=== PATIENT | male | born 1935 | race Caucasian/White ===

== ENCOUNTER 2019-04-20 04:05 | Outpatient (RCR) | payer MEDICARE, BC, SELFPAY | END 2019-05-04 00:01 | LOC: LAB 04:05 | PROVIDERS: Family Provider Family Medicine; Visit Provider Nurse Practitioner Family | DX: N40.0 Benign prostatic hyperplasia without lower urinary tract symptoms (principal) | CPT/HCPCS: 36415; G0103 ==

== ENCOUNTER 2019-05-25 10:14 | Outpatient (RCR) | payer MEDICARE, BC, SELFPAY ==
[2019-05-25 11:07] LABS: Anion Gap 18.6 (5-19); Blood Urea Nitrogen 12 mg/dL (8-23); Calcium 9.9 mg/Dl (8.8-10.2); Carbon Dioxide 25 mmol/L (22-29); Chloride 98 mmol/L (98-107); Glucose 92 mg/dL (74-106); Potassium 4.6 mmol/L (3.5-5.1); Sodium 137 mmol/L (136-145)
[2019-05-25 11:26] LABS: Basophils % 0.5 %; Eosinophils # 0.6 10^3/uL (0.0-0.8); Eosinophils % 9.9 %; Hematocrit 42.1 % (42.0-52.0); Hemoglobin 13.5 g/dL (11.7-16.6); Lymphocytes # 0.8 10^3/uL (0.8-4.8); Lymphocytes % 13.3 %; Mean Corpuscular HGB Conc 32.1 g/dL (30.0-36.0); Mean Corpuscular Hemoglobin 29.4 pg (28.0-34.0); Mean Corpuscular Volume 91.7 fL (80-94); Monocytes # 0.5 10^3/uL (0.2-0.9); Monocytes % 9.1 %; Neutrophils # 3.9 10^3/uL (1.8-7.7); Neutrophils % 66.4 %; Nucleated Red Blood Cells % 0 %; Platelet Count 232 10^3/cmm (130-400); Red Blood Count 4.59 10^6/uL (4.1-5.3); Red Cell Distribution Width 12.7 % (12.1-15.1); White Blood Count 5.9 10^3/uL (4.0-10.0)
== END 2019-06-04 23:59 | disposition home or self-care (01) ==
LOC: LAB 10:14
PROVIDERS: Family Provider Family Medicine; Visit Provider Dermatology
DX: N30.80 Other cystitis without hematuria (principal); I10 Essential (primary) hypertension
CPT/HCPCS: 80048; 85025

== ENCOUNTER 2020-02-23 07:27 | Inpatient (IN) | payer MEDICARE, BC, SELFPAY ==
[2020-02-23] VITALS (67 sets, daily range): BP systolic 57–158; BP diastolic 43–95; PULSE 72–114; RESP 11–31; TEMP 37.4–38.1; O2SAT 80–100; BMI 37.5
[2020-02-23 07:41] LABS: Glucose Point of Care 104 mg/dL (70-110)
--- NOTE | 2020-02-23 07:41 | ED_ITS ---
HPI - Altered Mental Status General: Chief Complaint: Altered Mental Status Stated Complaint: AMS, POSS STROKE Time Seen by Provider: 02/23/20 07:28 History of Present Illness: HPI narrative: 84-year-old male presents emergency room via EMS from the snf. He seemed to be normal around 2 AM this morning he is poorly responsive he will respond to verbal stimuli and painful stimuli but he does not vocalize any answers I could not get him to really res pond to sharp touch in the extremities or on the face. He does open his eyes equally does not seem to have any lateralizing symptoms. He has a sharp cough sounds very congested. Patient is a Do Not Recussitate. tested for covid 2 days ago was neg per report at DC MD complaint: altered mental status, confusion and decreased responsiveness Onset (ago): hour(s) Timing confirmed by: caregiver Severity: severe Consistency of symptoms: Constant Context: COPD Associated symptoms: Reports no associated symptoms Treatments prior to arrival: IV fluid and oxygen Review of Systems Const: Denies: fever(s), chills, body aches, change in appetite, fatigue or malaise ENMT: Denies: throat pain, ear or mastoid pain, nasal discharge or nasal congestion Card: Denies: chest pain, edema, dyspnea on exertion or orthopnea Resp: Denies: dyspnea, productive cough or non-productive cough GI: Denies: abdominal pain, nausea, vomiting, hematemesis, coffee ground emesis, diarrhea, constipation, bloating, hematochezia or melena : Denies: flank pain, dysuria, urinary frequency or urinary urgency Skin/Breast: Denies: rash or pruritus PFSH ED PFSH: Medical History (Updated 02/28/20 @ 09:26 by Luis Odom DO) BPH (benign prostatic hyperplasia) COPD (chronic obstructive pulmonary disease) CVA (cerebral vascular accident) Dementia History of subarachnoid hemorrhage following trauma HTN (hypertension) Hyperlipidemia Obstructive sleep apnea Social History (Updated 02/23/20 @ 11:56 by Jessica Vaca DO) Housing: Half-Way Physical Exam Const: COMMON NORMALS: no acute distress GENERAL APPEARANCE: cooperative and comfortable HENMT: COMMON NORMALS: normocephalic, atraumatic and hearing grossly normal bilaterally HEAD & SCALP: normocephalic and atraumatic Neck/C-Spine: COMMON NORMALS: no JVD Resp: COMMON NORMALS: normal respiratory effort, No retractions, No use of accessory muscles and clear to auscultation bilaterally AUSCULTATION: clear to auscultation bilaterally Cardio: COMMON NORMALS: no JVD, regular rate, regular rhythm and No murmurs present (Cardio) RATE: regular rate RHYTHM: regular rhythm GI: COMMON NORMALS: Soft to palpation and No hepatosplenomegaly present AUSCULTATION: Yes normoactive bowel sounds PALPATION: Yes Soft to palpation, No Tenderness to palpation present (GI), No Guarding due to palpation present (GI) and Yes No hepatosplenomegaly present Extremity: COMMON NORMALS: normal to inspection, capillary refill normal, no clubbing, cyanosis or edema, no calf tenderness and no pedal edema Skin: COMMON NORMALS: no rashes or lesions noted GENERAL SKIN EXAM: no rashes or lesions noted Course Vital Signs: Vital signs: Vital Signs Temperature 99.6 F 02/28/20 08:00 Pulse Rate 73 02/28/20 08:16 Respiratory Rate 18 02/28/20 08:16 Blood Pressure 120/52 02/28/20 10:11 Pulse Oximetry 94 02/28/20 08:16 MDM - Altered Mental Status MDM Narrative: Medical decision making narrative: Patient did respond to BiPAP. We will continue with the BiPAP for now discussed with Dr. Vaca. CT the head was negative. Started on IV antibiotics for concern for underlying pneumonia. Cussed with Dr. Vaca orders are written Lab Data: Labs: Lab Results 02/23/20 02/23/20 02/23/20 Range/Units 07:34 08:25 08:25 WBC 6.5 (4.0-10.0) 10^3/ uL RBC 4.70 (4.1-5.3) 10^6/u L Hgb 14.1 (11.7-16.6) g/dL Hct 46.6 (42.0-52.0) % MCV 99.1 H (80-94) fL MCH 30.0 (28.0-34.0) pg MCHC 30.3 (30.0-36.0) g/dL RDW 12.4 (12.1-15.1) % Plt Count 219 (130-400) 10^3/c mm MPV 10.5 H (7.4-10.4) fL Neut % (Auto) 76.4 % Lymph % (Auto) 7.4 % [place] % (Auto) 14.1 % Eos % (Auto) 0.5 % Baso % (Auto) 0.2 % Neut # (Auto) 4.98 (1.8-7.7) 10^3/u L Lymph # (Auto) 0.5 L (0.8-4.8) 10^3/u L [place]nee # (Auto) 0.9 (0.2-0.9) 10^3/u L Eos # (Auto) 0.0 (0.0-0.8) 10^3/u L Baso # (Auto) 0.0 (0.0-0.1) 10^3/u L Nucleated RBC % (a uto) 0 % Nucleated RBCs # 0.0 /100WBC Specimen Type Sample Site ABG pH (7.35-7.45) ABG pCO2 (35-45) mmHg ABG pO2 (80.0-100.0) mmH g ABG HCO3 (22-26) mmol/L ABG O2 Saturation ABG Base Excess (-2.0-2.0) mmol/ L Saroj Test A-a O2 Gradient (5-10) mmHg Hematocrit (42-52) % Hgb O2 Saturation (95-100) % Carboxyhemoglobin (0.4-20.1) %THgb Methemoglobin (0.4-1.5) % Total Hemoglobin (14-18) g/dL Ionized Calcium (1.1-1.4) mmol/L O2 Delivery Device O2 Liters/Min % FiO2 % Geographic Area Intelligence Officer ID Sodium (136-145) mmol/L Potassium (3.5-5.1) mmol/L Chloride (98-107) mmol/L Carbon Dioxide (22-29) mmol/L Anion Gap (5-19) BUN (8-23) mg/dL Creatinine (0.7-1.2) mg/dL GFR Calculation Glucose (65-115) mg/dL POC Glucose 104 (70-110) mg/dL Calculated Osmolal ity (285-295) mOsm/k g Lactic Acid 0.8 (0.5-2.2) mmol/L Calcium (8.5-10.5) mg/dL Magnesium (1.7-2.3) mg/dL Total Bilirubin (0.15-1.2) mg/dL AST (0-40) U/L ALT (0-41) U/L Alkaline Phosphata se (40-130) IU/L Creatine Kinase (39-308) U/L Troponin T Baselin e (0-15) ng/L Troponin T 120 Min minto (0-15) ng/L Delta Troponin T (0-10) ABS# Total Protein (6.6-8.7) g/dL Albumin (3.5-5.2) g/dL Globulin (1.3-4.6) g/dL Lipase (13-60) U/L Prostate Specific Ag (0-4) ng/mL TSH (0.27-4.20) uIU/ mL Urine Color (Yellow) Urine Appearance (CLEAR) Urine pH (5-7) Ur Specific Gravit y (1.005-1.030) Urine Protein (Negative) Urine Glucose (UA) (Normal) Urine Ketones (Negative) Urine Blood (Negative) Urine Nitrate (Negative) Urine Bilirubin (Negative) Urine Urobilinogen (Negative) mg/dL Ur Leukocyte Divine ase (Negative) Serum Ketones (Negative) 02/23/20 02/23/20 02/23/20 Range/Units 08:25 08:25 08:25 WBC (4.0-10.0) 10^3/ uL RBC (4.1-5.3) 10^6/u L Hgb (11.7-16.6) g/dL Hct (42.0-52.0) % MCV (80-94) fL MCH (28.0-34.0) pg MCHC (30.0-36.0) g/dL RDW (12.1-15.1) % Plt Count (130-400) 10^3/c mm MPV (7.4-10.4) fL Neut % (Auto) % Lymph % (Auto) % [place] % (Auto) % Eos % (Auto) % Baso % (Auto) % Neut # (Auto) (1.8-7.7) 10^3/u L Lymph # (Auto) (0.8-4.8) 10^3/u L [place] # (Auto) (0.2-0.9) 10^3/u L Eos # (Auto) (0.0-0.8) 10^3/u L Baso # (Auto) (0.0-0.1) 10^3/u L Nucleated RBC % (a uto) % Nucleated RBCs # /100WBC Specimen Type Sample Site ABG pH (7.35-7.45) ABG pCO2 (35-45) mmHg ABG pO2 (80.0-100.0) mmH g ABG HCO3 (22-26) mmol/L ABG O2 Saturation ABG Base Excess (-2.0-2.0) mmol/ L Saroj Test A-a O2 Gradient (5-10) mmHg Hematocrit (42-52) % Hgb O2 Saturation (95-100) % Carboxyhemoglobin (0.4-20.1) %THgb Methemoglobin (0.4-1.5) % Total Hemoglobin (14-18) g/dL Ionized Calcium (1.1-1.4) mmol/L O2 Delivery Device O2 Liters/Min % FiO2 % Geographic Area Intelligence Officer ID Sodium 149 H (136-145) mmol/L Potassium 4.1 (3.5-5.1) mmol/L Chloride 108 H (98-107) mmol/L Carbon Dioxide 29 (22-29) mmol/L Anion Gap 16.1 (5-19) BUN 29 H (8-23) mg/dL Creatinine 1.3 H (0.7-1.2) mg/dL GFR Calculation Not Reportable Glucose 104 (65-115) mg/dL POC Glucose (70-110) mg/dL Calculated Osmolal ity 314 H (285-295) mOsm/k g Lactic Acid (0.5-2.2) mmol/L Calcium 9.1 (8.5-10.5) mg/dL Magnesium 2.0 (1.7-2.3) mg/dL Total Bilirubin 0.3 (0.15-1.2) mg/dL AST 21 (0-40) U/L ALT 30 (0-41) U/L Alkaline Phosphata se 93 (40-130) IU/L Creatine Kinase 53 (39-308) U/L Troponin T Baselin e 70 H (0-15) ng/L Troponin T 120 Min minto (0-15) ng/L Delta Troponin T (0-10) ABS# Total Protein 7.2 (6.6-8.7) g/dL Albumin 4.0 (3.5-5.2) g/dL Globulin 3.2 (1.3-4.6) g/dL Lipase 13 (13-60) U/L Prostate Specific Ag 0.011 (0-4) ng/mL TSH 1.82 (0.27-4.20) uIU/ mL Urine Color (Yellow) Urine Appearance (CLEAR) Urine pH (5-7) Ur Specific Gravit y (1.005-1.030) Urine Protein (Negative) Urine Glucose (UA) (Normal) Urine Ketones (Negative) Urine Blood (Negative) Urine Nitrate (Negative) Urine Bilirubin (Negative) Urine Urobilinogen (Negative) mg/dL Ur Leukocyte Divine ase (Negative) Serum Ketones Negative (Negative) 02/23/20 02/23/20 02/23/20 Range/Units 08:31 10:00 11:18 WBC (4.0-10.0) 10^3/ uL RBC (4.1-5.3) 10^6/u L Hgb (11.7-16.6) g/dL Hct (42.0-52.0) % MCV (80-94) fL MCH (28.0-34.0) pg MCHC (30.0-36.0) g/dL RDW (12.1-15.1) % Plt Count (130-400) 10^3/c mm MPV (7.4-10.4) fL Neut % (Auto) % Lymph % (Auto) % [place] % (Auto) % Eos % (Auto) % Baso % (Auto) % Neut # (Auto) (1.8-7.7) 10^3/u L Lymph # (Auto) (0.8-4.8) 10^3/u L [place]nee # (Auto) (0.2-0.9) 10^3/u L Eos # (Auto) (0.0-0.8) 10^3/u L Baso # (Auto) (0.0-0.1) 10^3/u L Nucleated RBC % (a uto) % Nucleated RBCs # /100WBC Specimen Type Arterial Sample Site Brachial, right ABG pH 7.32 L (7.35-7.45) ABG pCO2 56.4 H (35-45) mmHg ABG pO2 78.0 L (80.0-100.0) mmH g ABG HCO3 28.9 H (22-26) mmol/L ABG O2 Saturation 94.8 ABG Base Excess 1.5 (-2.0-2.0) mmol/ L Saroj Test Pos A-a O2 Gradient 7.0 (5-10) mmHg Hematocrit 42.9 (42-52) % Hgb O2 Saturation 93.1 L (95-100) % Carboxyhemoglobin 1.0 (0.4-20.1) %THgb Methemoglobin 0.8 (0.4-1.5) % Total Hemoglobin 14.0 (14-18) g/dL Ionized Calcium 1.2 (1.1-1.4) mmol/L O2 Delivery Device Nc O2 Liters/Min 2.0 % FiO2 28.0 % Geographic Area Intelligence Officer ID Jlg Sodium 150.0 H (136-145) mmol/L Potassium 3.9 (3.5-5.1) mmol/L Chloride (98-107) mmol/L Carbon Dioxide (22-29) mmol/L Anion Gap (5-19) BUN (8-23) mg/dL Creatinine (0.7-1.2) mg/dL GFR Calculation Glucose 103.0 (65-115) mg/dL POC Glucose (70-110) mg/dL Calculated Osmolal ity (285-295) mOsm/k g Lactic Acid (0.5-2.2) mmol/L Calcium (8.5-10.5) mg/dL Magnesium (1.7-2.3) mg/dL Total Bilirubin (0.15-1.2) mg/dL AST (0-40) U/L ALT (0-41) U/L Alkaline Phosphata se (40-130) IU/L Creatine Kinase (39-308) U/L Troponin T Baselin e (0-15) ng/L Troponin T 120 Min minto 65.52 H (0-15) ng/L Delta Troponin T -4.48 L (0-10) ABS# Total Protein (6.6-8.7) g/dL Albumin (3.5-5.2) g/dL Globulin (1.3-4.6) g/dL Lipase (13-60) U/L Prostate Specific Ag (0-4) ng/mL TSH (0.27-4.20) uIU/ mL Urine Color Yellow (Yellow) Urine Appearance Clear (CLEAR) Urine pH 5 (5-7) Ur Specific Gravit y 1.025 (1.005-1.030) Urine Protein Neg (Negative) Urine Glucose (UA) Norm (Normal) Urine Ketones Negative (Negative) Urine Blood Neg (Negative) Urine Nitrate Negative (Negative) Urine Bilirubin Neg (Negative) Urine Urobilinogen Norm (Negative) mg/dL Ur Leukocyte Divine ase Negative (Negative) Serum Ketones (Negative) Discharge Plan Discharge Patient Disposition: Admitted As Inpatient Admit Provider: Jessica Vaca Clinical Impression: Acute hypercapnic respiratory failure, HTN (hypertension), COPD (chronic obstructive pulmonary disease), Dementia, CVA (cerebral vascular accident), Obstructive sleep apnea, Acute encephalopathy Condition: Stable Discharge Date/Time: 02/23/20 14:45 Coding Level of Care Code ED Specification Consultant for Chg Fwd Exam Comprehensive
--- NOTE | 2020-02-23 07:55 | CT_ITS ---
WS: [id number] CT HEAD TECHNIQUE: Noncontrast CT of the head obtained from the skullbase to the vertex. CLINICAL INFORMATION: AMS COMPARISON: July 13, 2018, January 2018, September 2009 DLP: 806.[address] scans at [facility] use at least one of these dose optimization techniques: automat ed exposure control; mA and/or kV adjustment per patient size (includes targeted exams where dose is matched to clinical indication); or iterative reconstruction. FINDINGS: Stable chronic focus of increased attenuation right frontal cortex measuring 11 mm is unchanged. This was present dating back to 2009. No evidence of acute intracranial hemorrhage or mass effect. Mild s mall vessel changes. Moderate parenchymal volume loss. Intracranial vascular calcification. Chronic a ppearing lacunar infarct right lateral basal ganglia. Mastoid air cells well aerated. Mild mucosal th ickening in the paranasal sinuses. CT/CT head wo con* [id number] IMPRESSION: 1. No interval changes since . 2. Stable increased attenuation 11 mm intra-axial lesion right frontal lobe is present dating back to 2009. This is nonspecific and could be further evaluate d with MRI if indicated 3. Mild small vessel changes. Moderate parenchymal volume loss. 4. Chronic lacunar infarcts in the right lateral basal ganglia. Notified Luis Odom DO at 02/23/2020 8:29 AM.
--- NOTE | 2020-02-23 07:56 | ECG_ITS ---
[facility] Test Date: 2020-02-23 Pat Name: Jose Mancuso Department: Room: Gender: Male Resource Development Manager: : 1935 Requested By: Luis House Order Number: [id number] Kwaku MD: Mariela Pete M.D. Measurements Intervals [place] Rate: 93 P: -4 HI: 184 QRS: -77 QRSD: 173 T: -18 QT: 362 QTc: 451 Interpretive Statements SINUS RHYTHM RIGHT BUNDLE BRANCH BLOCK [120+ ms QRS DURATION, UPRIGHT V1, 40+ ms S IN I/aVL/V4/V5/V6] INFERIOR MYOCARDIAL INFARCTION [40+ ms Q WAVE AND/OR ST/T ABNORMALITY IN II/aVF], OF INDETERMINATE AGE ANTEROLATERAL MYOCARDIAL INFARCTION [40+ ms Q WAVE IN I/aVL/V3-V6], POSSIBLY ACUTE ACUTE [place] Compared to ECG 01/30/2018 10:58:21 Right-axis deviation no longer present Myocardial infarct finding still present Electronically Signed On 02-23-2020 21:45:04 CDT by Mariela Pete M.D. [id number] f
--- NOTE | 2020-02-23 07:56 | XRR_ITS ---
PROCEDURE INFORMATION: Exam: XR Chest, 1 View Exam date and time: 02/23/2020 8:03 AM Age: 84 years old Clinical indication: Cough and dyspnea; Patient HX: Unable to obtain history, AMS, possible stroke; Additional info: Dyspnea/cough TECHNIQUE: Imaging protocol: XR of the chest Views: 1 view. COMPARISON: CR Chest 1 [place] [id number] 01/30/2018 11:12 AM FINDINGS: Lungs: There is left basilar atelectasis. Otherwise the lung fajardo are clear. Pleural space: Unremarkable. No pleural effusion. No pneumothorax. Heart/Mediastinum: The cardiac silhouette is mildly enlarged. The aorta is tortuous. A large hiatal hernia is present which was seen on old studies. Bones/joints: Unremarkable. XR/XR chest 1V portable [id number] IMPRESSION: 1. Stable mild cardiomegaly. 2. Large hiatal hernia. 3. Stable compressive atelectasis in the left base.
[2020-02-23 08:36] LABS: Basophils % 0.2 %; Eosinophils % 0.5 %; Hematocrit 46.6 % (42.0-52.0); Hemoglobin 14.1 g/dL (11.7-16.6); Lymphocytes # 0.5 10^3/uL (0.8-4.8); Lymphocytes % 7.4 %; Mean Corpuscular HGB Conc 30.3 g/dL (30.0-36.0); Mean Corpuscular Volume 99.1 fL (80-94); Mean Platelet Volume 10.5 fL (7.4-10.4); Monocytes # 0.9 10^3/uL (0.2-0.9); Monocytes % 14.1 %; Neutrophils # 4.98 10^3/uL (1.8-7.7); Neutrophils % 76.4 %; Nucleated Red Blood Cells % 0 %; Platelet Count 219 10^3/cmm (130-400); Red Cell Distribution Width 12.4 % (12.1-15.1); White Blood Count 6.5 10^3/uL (4.0-10.0)
[2020-02-23 08:40] LABS: Add Urine Microscopic? NO
[2020-02-23 08:48] LABS: Bilirubin Urine Neg (Negative); Blood Urine Neg (Negative); Glucose Urine UA Norm (Normal); Ketones Urine Negative (Negative); Leukocyte Esterase Urine Negative (Negative); Nitrate Urine Negative (Negative); Protein Urine Neg (Negative); Specific Gravity, Urine 1.025 (1.005-1.030); Urine Appearance Clear (CLEAR); Urine Color Yellow (Yellow); Urobilinogen Urine Norm (Negative); pH Urine 5 (5-7)
[2020-02-23 08:58] LABS: Lactic Sepsis W/Reflex 0.8 mmol/L (0.5-2.2); Troponin(5th) Baseline 70 ng/L (0-15)
[2020-02-23 08:59] LABS: Alanine Aminotransferase 30 U/L (0-41); Alkaline Phosphatase 93 IU/L (40-130); Anion Gap 16.1 (5-19); Aspartate Amino Transferase 21 U/L (0-40); Blood Urea Nitrogen 29 mg/dL (8-23); Calcium 9.1 mg/dL (8.5-10.5); Carbon Dioxide 29 mmol/L (22-29); Chloride 108 mmol/L (98-107); Creatine Phosphokinase 53 U/L (39-308); Creatinine Clr Calc Pharmacy 54.8427; Globulin 3.2 g/dL (1.3-4.6); Glucose 104 mg/dL (65-115); Lipase 13 U/L (13-60); Osmolality Calculated 314 mOsm/kg (285-295); Potassium 4.1 mmol/L (3.5-5.1); Sodium 149 mmol/L (136-145); Total Bilirubin 0.3 mg/dL (0.15-1.2); Total Protein 7.2 g/dL (6.6-8.7)
[2020-02-23 09:01] LABS: Ketone (Acetest) Serum Negative (Negative)
--- NOTE | 2020-02-23 09:56 | ECG_ITS ---
[facility] Test Date: 2020-02-23 Pat Name: Jose Mancuso Department: Room: Gender: Male Communications Supervisor: : 1935 Requested By: Luis House Order Number: [id number] Kwaku MD: Mariela Pete M.D. Measurements Intervals [place] Rate: 85 P: 26 PA: 206 QRS: -76 QRSD: 169 T: 24 QT: 402 QTc: 479 Interpretive Statements SINUS RHYTHM RIGHT BUNDLE BRANCH BLOCK [120+ ms QRS DURATION, UPRIGHT V1, 40+ ms S IN I/aVL/V4/V5/V6] LEFT ANTERIOR FASCICULAR BLOCK [QRS AXIS <= -45, QR IN I, RS IN II] ANTERIOR MYOCARDIAL INFARCTION , PROBABLY RECENT [40+ ms Q WAVE AND/OR ST/T ABNORMALITY IN V3/V4] ACUTE [place] Compared to ECG 02/23/2020 07:36:05 Left anterior fascicular block now present Myocardial infarct finding still present Electronically Signed On 02-23-2020 21:47:13 CDT by Mariela Pete M.D. [email or web address]/store/[id number] acharya
[2020-02-23 10:12] LABS: ABG PCO2 56.4 mmHg (35-45); ABG PH Result 7.32 (7.35-7.45); Arterial Blood Gas Hematocrit 42.9 % (42-52); Base Excess ABG 1.5 mmol/L (-2.0-2.0); Blood Gas Allen Test Pos; Blood Gas Sample Site Brachial, right; Blood Gas Sample Type Arterial; HCO3 ABG 28.9 mmol/L (22-26); HGB O2 Sat 93.1 % (95-100); Ionized Calcium Level - ABG 1.2 mmol/L (1.1-1.4); Methemoglobin 0.8 % (0.4-1.5); Oxygen Device NC; Oxygen Saturation ABG 94.8; Potassium Level - ABG 3.9 mmol/L (3.5-5.0)
[2020-02-23 11:52] LABS: Troponin 5 2HR 65.52 ng/L (0-15); Troponin 5 2HR Delta -4.48 ABS# (0-10)
--- NOTE | 2020-02-23 11:53 | PM.HP ---
Providers/Chief Complaint Chief Complaint: AMS, POSS STROKE History of Present Illness Jose Mancuso is a 84 year old male with a past medical history of dementia, prostate cancer, COPD, history of prior CVA and hypertension that presented to the emergency department [facility] [place] today for altered mental status. Patient's last known well was 2:00 this morning. Reported to be suddenly unresponsive but could move his eyes. Patient was sent to the ER for further evaluation and treatment. Unable to obtain HPI from patient due to his acute encephalopathy Patient was seen and evaluated in the emergency department and admitted for further evaluation and treatment due to hypercapnic respiratory failure. Review of Systems General: Reports: ROS unobtainable due to medical condition and ROS unobtainable due to mental status Medications/Allergies Home Medications Medication Instructions Recorded Confirmed Last Taken Type acetaminophen [Tylenol] 650 mg PO TID PRN 02/23/20 02/23/20 Unknown History ascorbic acid (vitamin C) [Vitamin 1 g PO BID 02/23/20 02/23/20 Unknown History C] aspirin [Aspirin Childrens] 81 mg PO DAILY 02/23/20 02/23/20 Unknown History bicalutamide 50 mg PO DAILY 02/23/20 02/23/20 Unknown History bisacodyl [address] DAILY PRN 02/23/20 02/23/20 Unknown History citalopram 20 mg PO DAILY 02/23/20 02/23/20 Unknown History donepezil 10 mg PO DAILY 02/23/20 02/23/20 Unknown History famotidine 20 mg PO BID 02/23/20 02/23/20 Unknown History furosemide 40 mg PO DAILY 02/23/20 02/23/20 Unknown History guaifenesin [Jossie-Tussin] 100 mg PO Q4H PRN 02/23/20 02/23/20 Unknown History hydrocodone-acetaminophen 1 tab PO BID PRN 02/23/20 02/23/20 Unknown History ipratropium-albuterol 3 ml INHALATION TID 02/23/20 02/23/20 Unknown History loratadine [Claritin] 10 mg PO DAILY 02/23/20 02/23/20 Unknown History lorazepam 0.5 mg PO TID 02/23/20 02/23/20 Unknown History magnesium hydroxide [Milk of 400 mg PO DAILY PRN 02/23/20 02/23/20 Unknown History Magnesia] memantine 10 mg PO BID 02/23/20 02/23/20 Unknown History methenamine hippurate 1 g PO BID 02/23/20 02/23/20 Unknown History metoprolol succinate 12.5 mg PO DAILY 02/23/20 02/23/20 Unknown History potassium chloride 10 meq PO DAILY 02/23/20 02/23/20 Unknown History risperidone 1 mg PO TID 02/23/20 02/23/20 Unknown History sennosides-docusate sodium 1 tab-cap PO DAILY 02/23/20 02/23/20 Unknown History [Senna-S] sodium phosphates [Enema [address] DAILY PRN 02/23/20 02/23/20 Unknown History Disposable] trazodone 25 mg PO DAILY 02/23/20 02/23/20 Unknown History Allergies Allergy/AdvReac Type Severity Reaction Status Date / Time No Known Allergies Allergy Verified 02/23/20 07:36 PFSH Acute PFSH: Medical History (Updated 02/23/20 @ 11:58 by Jessica Vaca DO) BPH (benign prostatic hyperplasia) COPD (chronic obstructive pulmonary disease) CVA (cerebral vascular accident) Dementia History of subarachnoid hemorrhage following trauma HTN (hypertension) Hyperlipidemia Obstructive sleep apnea Social History (Updated 02/23/20 @ 11:56 by Jessica Vaca DO) Housing: [facility] Supplemental PFSH Information: Unable to obtain surgical history or family history from patient due to his acute encephalopathy. Vitals/I&O/Wt Last Vital Signs Temp 99.4 F 02/23/20 07:28 Pulse 85 02/23/20 11:34 Resp 20 H 02/23/20 11:34 BP 124/80 02/23/20 11:34 Pulse Ox 94 02/23/20 11:34 Weight last 48 hrs Weight 115.212 kg Physical Exam Const: EXAM LIMITATIONS: altered mental status ORIENTATION/CONSCIOUSNESS: Yes lethargic HENMT: OTHER: Normocephalic, atraumatic, erythematous conjunctivobilaterally Resp: OTHER: BiPAP in place, coarse breath sounds, upper airway noise, no appreciable wheezing Cardio: OTHER: Regular rate and rhythm, no appreciable murmur GI: OTHER: Obese, soft, nontender, normal bowel sounds Extremity: OTHER: No acute deformity Neuro: OTHER: Patient is lethargic, opens his eyes to verbal stimuli and pain, does not verbalize Psych: OTHER: Lethargic Data : 02/23/20 08:25 02/23/20 08:25 Micro: Microbiology 02/23/20 08:31 Blood Culture - Preliminary Blood SPECIMEN COLLECTED 02/23/20 08:25 Blood Culture - Preliminary Blood SPECIMEN COLLECTED A&P Assessment and plan (1) Acute hypercapnic respiratory failure: Acute respiratory failure with hypercapnia Placed on BiPAP in the ED, will continue, wean off as tolerated Respiratory therapy to assess and treat Status: Acute (2) Acute encephalopathy: Last known well 0200 on date of admission, prior history of CVA. Will discuss with long term to determine baseline mentation hold any sedating medications check TSH and ammonia Status: Acute Additional A&P Information Patient has bilateral coarse breath sounds with congestion, concern for aspiration, will start on Levaquin 750 mg daily, speech therapy ordered for evaluation and treatment, is on dysphagia diet at the nursing facility. Aspiration precautions. Clinical concern for dehydration: With elevated BUN and creatinine, given IV fluids in the ED, will give very gentle IV fluids as do not wish to fluid overload patient at this time. History of CVA with acute encephalopathy: We will further evaluate for concern for acute CVA, also concern for hypercapnic respiratory failure as above. Echocardiogram and carotid ultrasound ordered. Continue with serial neurologic checks. Continue on aspirin and statin History of prostate cancer: We will check PSA History of dementia on memantine and Risperdal along with lorazepam as needed, due to acute worsening of mentation will hold sedating medications Hypertension: Continue home metoprolol Diet: N.p.o. until more alert DVT prophylaxis: Lovenox CODE STATUS: Do Not Resuscitate/DNI Attestations Medical Necessity Statement*: Patient requires hospitalization due to concern for aspiration pneumonia, acute encephalopathy with concern for acute hypercapnic respiratory failure. Expected stay greater than 2 midnights Coding Level of Care Code Acute Fraternity Adviser for Mario Fwaltagracia Exam Problem Focused Diagnoses Acute hypercapnic respiratory failure J96.02 Acute encephalopathy G93.40
[2020-02-23 12:39] LABS: Ammonia 17 umol/L (16-60)
[2020-02-23 13:02] LABS: Thyroid Stimulating Hormone 1.82 uIU/mL (0.27-4.20)
[2020-02-23 13:13] LABS: ABG PCO2 50.8 mmHg (35-45); ABG PH Result 7.35 (7.35-7.45); Alveolar-Arterial Oxygen Gradi 11.8 mmHg (5-10); Arterial Blood Gas Hematocrit 43.4 % (42-52); Base Excess ABG 1.6 mmol/L (-2.0-2.0); Blood Gas Allen Test Pos; Blood Gas Operator Identificat glc; Blood Gas Sample Site Radial, right; Blood Gas Sample Type Arterial; Carboxyhemoglobin 0.9 %THgb (0.4-20.1); HCO3 ABG 28.1 mmol/L (22-26); HGB O2 Sat 90.3 % (95-100); Ionized Calcium Level - ABG 1.2 mmol/L (1.1-1.4); Methemoglobin 0.8 % (0.4-1.5); Oxygen Device BIPAP; Oxygen Saturation ABG 91.9; PO2 ABG 62.3 mmHg (80.0-100.0); Potassium Level - ABG 3.9 mmol/L (3.5-5.0); Total Hemoglobin 14.2 g/dL (14-18)
[2020-02-23 13:23] LABS: Prostate Specific Antigen 0.011 ng/mL (0-4)
--- NOTE | 2020-02-23 13:56 | ECG_ITS ---
[facility] Test Date: 2020-02-23 Pat Name: Jose Mancuso Department: Room: ICU03 Gender: Male Applications System Analyst: : 1935 Requested By: Luis House Order Number: [id number] Kwaku MD: Mariela Pete M.D. Measurements Intervals [place] Rate: 95 P: 16 KS: 205 QRS: -82 QRSD: 132 T: 8 QT: 358 QTc: 451 Interpretive Statements SINUS RHYTHM RIGHT BUNDLE BRANCH BLOCK [120+ ms QRS DURATION, UPRIGHT V1, 40+ ms S IN I/aVL/V4/V5/V6] INFERIOR MYOCARDIAL INFARCTION , PROBABLY OLD [40+ ms Q WAVE AND/OR ST/T ABNORMALITY IN II/aVF] ANTEROLATERAL MYOCARDIAL INFARCTION , OF INDETERMINATE AGE [40+ ms Q WAVE IN I/aVL/V3-V6] Compared to ECG 02/23/2020 10:22:07 Left anterior fascicular block no longer present Myocardial infarct finding still present Electronically Signed On 02-23-2020 21:48:56 CDT by Mariela Pete M.D. [id number] acharya
--- NOTE | 2020-02-23 14:17 | USCV_ITS ---
Jose Mancuso Age: 84 Gender: M : 1935 Exam Date: 02/23/2020 16:23 Ordering Phys: Jessica Vaca DO Technologist: Kathia Langston Exam Location: [facility] [place] Indication: CVA Risk Factors: Previous Vascular Surgery: Right Brachial BP: / Left Brachial BP: / Right Left Velocity (cm/s) Spectral Plaque Velocity (cm/s) Spectral Plaque Syst/Diast Broadening Syst/Diast Broadening 40.80/ 10.20 Prox CCA 33.50 / 8.40 35.50/ 11.80 Mid CCA 43.50 / 7.50 69.10/ 20.50 Distal CCA 36.60 / 10.40 18.00/ 6.80 Prox ICA 16.80 / 8.00 30.70/ 11.60 Mid ICA 31.10 / 11.60 21.20/ 8.00 Distal ICA 29.40 / 9.20 41.20 ECA 40.60 0.87 ICA/CCA 0.71 Not Vertebral Not Visualized Visualized / cm/s / cm/s Bi Subclavian Bi 41.90 30.50 FINDINGS Technically difficult examination CONCLUSIONS Right ICA stenosis <50%. Mild atheromatous plaque right carotid bulb/ICA. Left ICA stenosis <50%. Mild atheromatous plaque left carotid bulb/ICA. Vertebral arteries not visualized Marcelo Alberto MD (Electronically Signed) Final Date: 24 February 2020 14:19 S
--- NOTE | 2020-02-23 14:17 | USCV_ITS ---
Jose Mancuso Age: 84 Gender: M : 1935 Exam Date: 02/23/2020 16:09 Ordering Phys: Jessica Vaca DO Technologist: Kathia Langston [place] [facility] [place]: CVA BP: 116 / 92 HR: 139 Rhythm: Sinus Technical Quality: Very technically difficult study MEASUREMENTS (Male / Female) Normal Values 2D ECHO LV Diastolic Diameter PLAX 2.7 cm 4.2 - 5.9 / 3.9 - 5.3 cm LV Systolic Diameter PLAX 1.8 cm IVS Diastolic Thickness 1.4 cm 0.6 - 1.0 / 0.6 - 0.9 cm IVS Systolic Thickness 1.7 cm LVPW Diastolic Thickness 2.0 cm 0.6 - 1.0 / 0.6 - 0.9 cm LVPW Systolic Thickness 1.9 cm LVOT Diameter 2.0 cm LV Ejection Fraction 2D Teich 65.1 % LA Diameter 3.1 cm LA Width 3.3 cm LA Height 4.9 cm Aorta at Sinotubular Diameter 2.7 cm M-MODE LV Diastolic Diameter MM 3.7 cm 4.2 - 5.9 / 3.9 - 5.3 cm LV Systolic Diameter MM 2.4 cm LV Ejection Fraction MM Teich 66.4 % IVS Diastolic Thickness MM 0.7 cm 0.6 - 1.0 / 0.6 - 0.9 cm IVS Systolic Thickness MM 1.2 cm LVPW Diastolic Thickness MM 1.5 cm 0.6 - 1.0 / 0.6 - 0.9 cm LVPW Systolic Thickness MM 1.6 cm Aortic Annulus Diameter 2.7 cm LA Ao Ratio MM 1.4 DOPPLER AV Peak Velocity 229.0 cm/s LVOT Peak Velocity 86.0 cm/s AV Area Cont Eq vti 1.3 cm squared AV Area Cont Eq pk 1.2 cm squared MV Area PHT 10.0 cm squared Mitral E to A Ratio 0.6 MV E' Velocity 46.0 cm/s Mitral E to MV E' Ratio 8.9 Mitral E to LV E' Lateral Ratio 6.7 Mitral E to LV E' Septal Ratio 13.3 TR Peak Velocity 110.0 cm/s TR Peak Gradient 4.8 mmHg TV Peak E Velocity 60.0 cm/s Right Atrial Pressure 15.0 mmHg Pulmonary Artery Systolic Pressu 19.8 mmHg PV Peak Velocity 53.0 cm/s RV Acceleration Time 0.1 s RV Ejection Time 0.3 s RV AcT/ET 0.6 FINDINGS Left Ventricle Very limited visualization, cannot assess LV systolic function or regional wall motion abnormalities. Right Ventricle Not well-visualized Right Atrium Not well-visualized Left Atrium Not well visualized Mitral Valve Not well visualized Aortic Valve Aortic valve is not visualized. Doppler peak velocity across aortic valve is found to be 2.58 m/s with peak gradient of 26.6 mmHg. This velocity will correlate with mild aortic stenosis. Tricuspid Valve Not well visualized Pulmonic Valve Not well visualized Pericardium Not well-visualized Aorta Not well visualized CONCLUSIONS This is a very limited quality echocardiogram. No cardiac structures are not well-visualized. In order to assess LV systolic function, please repeat limited echocardiogram with contrast. Valves not well visualized however P] prosthetic valve is found to be 2.58 m/s. This velocity will correlate with mild aortic stenosis. No comparison studies are available. Pastor Luna MD (Electronically Signed) Final Date: 23 February 2020 19:02 S
[2020-02-23 14:59] LABS: Troponin 5 6HR 61.33 ng/L (0-15)
--- NOTE | 2020-02-23 15:19 | PC.NURSE ---
To ICU at 1455 via ED stretcher and JAIRO Gamez. 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 Oral care provided, very dry mouth. VSS. 5lnc.
[2020-02-23] MEDS: pantoprazole 40 mg SDV IVP (15:23)
[2020-02-23] MEDS: dextrose 5%-sod chloride 0.9% 1,000 ML 50 ML IV (15:23)
[2020-02-23] MEDS: levofloxacin-dextrose 5 % 750 MG/150 ML PREMIX 100 MG IV (15:23)
[2020-02-23] MEDS: enoxaparin 40 mg/0.4 mL Syringe SUBCUT (15:23)
[2020-02-23] MEDS: acetaminophen 325 mg Tablet 650 MG PO (17:20)
[2020-02-23] MEDS: memantine 5 mg tablet 10 MG PO (17:20)
[2020-02-23] MEDS: ascorbic acid 500 mg Tablet 1000 MG PO (17:21)
[2020-02-23] MEDS: sodium chloride 0.9% 500 ML IV (19:58)
[2020-02-23 20:04] LABS: Lactic Sepsis W/Reflex 1.8 mmol/L (0.5-2.2)
[2020-02-23] MEDS: ipratropium-albuterol 3 mL Neb INHALATION (20:04)
[2020-02-23] MEDS: sodium chloride 0.9% 1,000 ML 999 ML IV (23:31)
[2020-02-24] VITALS (185 sets, daily range): BP systolic 65–130; BP diastolic 30–84; PULSE 56–86; RESP 6–30; TEMP 37–37.7; O2SAT 81–100; BMI 37.5
[2020-02-24] MEDS: sodium chloride 0.9% 1,000 ML 999 ML IV ×2 (01:09→01:37)
[2020-02-24] MEDS: ipratropium-albuterol 3 mL Neb INHALATION ×4 (02:30→21:05)
[2020-02-24 04:18] LABS: Basophils % 0.2 %; Hematocrit 38.7 % (42.0-52.0); Hemoglobin 11.5 g/dL (11.7-16.6); Lymphocytes # 0.7 10^3/uL (0.8-4.8); Lymphocytes % 15.1 %; Mean Corpuscular HGB Conc 29.7 g/dL (30.0-36.0); Mean Corpuscular Hemoglobin 30.3 pg (28.0-34.0); Mean Corpuscular Volume 102.1 fL (80-94); Mean Platelet Volume 10.8 fL (7.4-10.4); Monocytes # 0.7 10^3/uL (0.2-0.9); Monocytes % 14.9 %; Neutrophils # 3.07 10^3/uL (1.8-7.7); Nucleated Red Blood Cells % 0 %; Platelet Count 177 10^3/cmm (130-400); Red Blood Count 3.79 10^6/uL (4.1-5.3); Red Cell Distribution Width 12.6 % (12.1-15.1); White Blood Count 4.5 10^3/uL (4.0-10.0)
[2020-02-24 04:56] LABS: Alanine Aminotransferase 25 U/L (0-41); Albumin Level 3.1 g/dL (3.5-5.2); Alkaline Phosphatase 69 IU/L (40-130); Anion Gap 13.6 (5-19); Aspartate Amino Transferase 19 U/L (0-40); Blood Urea Nitrogen 35 mg/dL (8-23); Calcium 8.1 mg/dL (8.5-10.5); Carbon Dioxide 24 mmol/L (22-29); Chloride 112 mmol/L (98-107); Creatinine Clr Calc Pharmacy 54.8427; Globulin 2.8 g/dL (1.3-4.6); Glucose 85 mg/dL (65-115); Osmolality Calculated 309 mOsm/kg (285-295); Potassium 3.6 mmol/L (3.5-5.1); Sodium 146 mmol/L (136-145); Total Bilirubin 0.2 mg/dL (0.15-1.2); Total Protein 5.9 g/dL (6.6-8.7)
--- NOTE | 2020-02-24 09:48 | PM.PN ---
Subjective Subjective: Interval history: Patient remains a little bit slow to respond today but does open his eyes and responds to voice, follows commands and answers some questions appropriately with yes or no response. Able to provide his name Vitals/I&O/Wt Last Vital Signs Temp 98.6 F 02/24/20 07:55 Pulse 73 02/24/20 08:36 Resp 20 H 02/24/20 08:35 BP 90/53 02/24/20 07:55 Pulse Ox 94 02/24/20 08:35 02/23/20 02/24/20 02/24/20 22:59 06:59 14:59 Intake Total 150 / 150 500 / 650 3500 / 3500 Output Total 150 / 150 Balance 150 / 150 350 / 500 3500 / 3500 Weight last 48 hrs Weight 112.491 kg Weight 115.212 kg Weight 115.212 kg Physical Exam Const: EXAM LIMITATIONS: altered mental status OTHER: More alert today but remains somewhat slow to respond. Improved from admission HENMT: OTHER: Normocephalic, atraumatic, erythematous conjunctive a has improved Resp: OTHER: Oxygen by nasal cannula in place, lungs clear to auscultation without wheezing or rhonchi, no upper airway congestion appreciated today Cardio: OTHER: Regular rate and rhythm, systolic murmur appreciated today GI: OTHER: Obese, soft, nontender, normal bowel sounds Extremity: OTHER: No acute deformity Neuro: OTHER: More alert today, able to state his name, answers some yes or no questions, follows commands but very slow to respond. Psych: OTHER: Cooperative Urinary Catheter Management^: Lennon: Cath Placed During This Visit: yes Reason for Continuing Indwelling Catheter: Accurate Measurement of Urinary Output in Critically Ill Patients Urinary Catheter Date of Insertion: 02/23/20 Urinary Catheter Time of Insertion: 19:52 Data : 02/24/20 03:25 02/24/20 03:25 Micro: Microbiology 02/23/20 08:31 Blood Culture - Preliminary Blood NEGATIVE TO DATE 02/23/20 08:25 Blood Culture - Preliminary Blood NEGATIVE TO DATE A&P Assessment and plan (1) Acute hypercapnic respiratory failure: Acute respiratory failure with hypercapnia Weaned off of BiPAP to nasal cannula, goal oxygen saturation of 90 to 92%, continue to wean as tolerated Status: Acute (2) Acute encephalopathy: Believed to be multifactorial with concern for underlying CVA, prior CVA history. Patient will be continued on aspirin and statin. Echocardiogram and carotid ultrasound ordered. Patient is chair and bedbound at baseline, therefore will continue to work with occupational therapy and speech therapy Patient has improved mentation today, according to son this may be his baseline, will discuss further today Status: Acute Additional A&P Information Patient has bilateral coarse breath sounds with congestion, concern for aspiration, continue on Levaquin 750 mg daily, speech therapy ordered for evaluation and treatment, is on dysphagia diet at the nursing facility. Aspiration precautions. Hypotension with concern for dehydration: Continue IV fluids but will continue to monitor respiratory status closely. Remain in the ICU this morning and if blood pressure remains stable will transfer to the medical floor. Clinical concern for dehydration: Continue with gentle IV fluids as above History of CVA with acute encephalopathy: We will further evaluate for concern for acute CVA, also concern for hypercapnic respiratory failure as above. Continue on aspirin and statin History of prostate cancer: PSA within normal limits History of dementia on memantine and Risperdal along with lorazepam as needed, due to acute worsening of mentation will hold sedating medications Hypertension: Continue home metoprolol Diet: Speech therapy to continue to work and evaluate patient, continue with dysphagia diet and thickened liquids DVT prophylaxis: Lovenox CODE STATUS: Do Not Resuscitate/DNI Attestations Medical Necessity Statement*: Patient requires further hospitalization due to acute encephalopathy that is multifactorial with concern for aspiration pneumonia, CVA and acute hypercapnic respiratory failure. Coding Level of Care Code Acute Director Market Research for [employer]rizar[employer] Diagnoses Acute hypercapnic respiratory failure J96.02 Acute encephalopathy G93.40
[2020-02-24] MEDS: pantoprazole 40 mg SDV IVP (09:50)
--- NOTE | 2020-02-24 09:53 | PC.NURSE ---
Addendum entered by Mal Kohler RN 02/24/20 09:58: PO meds held. Original Note: Unresponsive Patient not responding to voice or painful stimuli. Patient on 2lnc, sats 94%. Patient placed on Bipap machine (here for hypercapnia). BP 82/56, 97% on bipap, hr 80, sonorous respirations at 14.
[2020-02-24] MEDS: citalopram 20 mg Tablet PO (10:48)
[2020-02-24] MEDS: atorvastatin 40 mg Tablet PO (10:48)
[2020-02-24] MEDS: aspirin 81 mg Chew Tablet PO (10:49)
[2020-02-24] MEDS: metoprolol succinate ER (24 HR) 25 mg Tablet 12.5 MG PO (10:49)
[2020-02-24] MEDS: memantine 5 mg tablet 10 MG PO ×2 (10:50→18:21)
[2020-02-24] MEDS: donepezil 5 MG Tablet 10 MG PO (10:50)
[2020-02-24] MEDS: ascorbic acid 500 mg Tablet 1000 MG PO ×2 (10:50→18:21)
[2020-02-24] MEDS: sodium chloride 0.9% 1,000 ML 150 ML IV ×2 (11:52→15:27)
[2020-02-24] MEDS: enoxaparin 40 mg/0.4 mL Syringe SUBCUT (15:26)
[2020-02-24] MEDS: levofloxacin-dextrose 5 % 750 MG/150 ML PREMIX 100 MG IV (15:26)
[2020-02-25] VITALS (59 sets, daily range): BP systolic 82–161; BP diastolic 28–93; PULSE 63–97; RESP 0–31; TEMP 36.2–37.5; O2SAT 88–96; BMI 38.5
[2020-02-25] MEDS: sodium chloride 0.9% 1,000 ML 150 ML IV ×2 (01:24→03:50)
[2020-02-25] MEDS: ipratropium-albuterol 3 mL Neb INHALATION ×3 (03:06→13:59)
--- NOTE | 2020-02-25 09:01 | PC.CHAP ---
Pastoral Care Encounter/Spiritual Assessment Type of Contact [] Declined commercial estimator visit [] Patient/Family/Request visit [] Outpatient visit [] Follow-up visit [] Physician referral [] Code/Alert [x] Routine visit [] Staff referral [] Actively dying [] Patient sleeping [] Family support [] [] Out of room [] Palliative care [] [] Receiving care in room [] Pre-surgical visit [] Trauma [] Long length of stay [] ICU visit [] Other: Relational/Emotional Strength [] Patient feels connected with others/family/visitors/staff [] Distress [] Loneliness/isolation [] Abandonment Spirituality of Patient [] Person of Shahana [] Attends Tenriism of their Shahana [] Believes in Prayer [] Reads Bible or Buddhism materials [] There are Spiritual issues to be addressed Type Inspector Interventions [x] Prayer [] Active listening [] Non-anxious presence [] Spiritual/emotional support [] Crisis/trauma care [] Spiritual counseling [] Bereavement support [] Provided bereavement packet [] Provided Bible/devotional materials [] Provided toy/stuffed animal, coloring book to patient or family member [] Provided Communion [] Anointing/[place] [] Salvation [x] Completed spiritual assessment [] Other: Impact on Illness or Injury [] Angry [] Fearful [] Anxious [] Often cries [] Exhaustion [] Unable to work [] Unable to attend sabianism [] Unable to walk/stand [] Unable to read [] Unable to drive [] Unable to eat/drink [] Unable to sleep [] Unable to be with family [] Patient intubated [] Other: Summary Time spent with patient
[2020-02-25] MEDS: pantoprazole 40 mg SDV IVP (10:05)
[2020-02-25] MEDS: ascorbic acid 500 mg Tablet 1000 MG PO ×2 (10:05→18:49)
[2020-02-25] MEDS: atorvastatin 40 mg Tablet PO (10:05)
[2020-02-25] MEDS: metoprolol succinate ER (24 HR) 25 mg Tablet 12.5 MG PO (10:06)
[2020-02-25] MEDS: citalopram 20 mg Tablet PO (10:06)
[2020-02-25] MEDS: aspirin 81 mg Chew Tablet PO (10:07)
[2020-02-25] MEDS: donepezil 5 MG Tablet 10 MG PO (10:07)
[2020-02-25] MEDS: memantine 5 mg tablet 10 MG PO ×2 (10:07→18:49)
--- NOTE | 2020-02-25 10:39 | PC.NURSE ---
SCD pumps not available, aware of this VTE not being available.
--- NOTE | 2020-02-25 15:15 | P.PN_ITS ---
Subjective Subjective: Interval history: He is not able to communicate well. However, is able to give some short answers. Denies any pain. Vitals/I&O/Wt Last Vital Signs Temp 99.5 F 02/25/20 06:00 Pulse 72 02/25/20 14:05 Resp 20 H 02/25/20 13:59 BP 98/61 02/25/20 13:00 Pulse Ox 90 02/25/20 13:59 02/25/20 02/25/20 02/25/20 06:59 14:59 22:59 Intake Total 865 / 8422.5 440 / 440 Output Total 400 / 1000 Balance 465 / 7422.5 440 / 440 Weight last 48 hrs Weight 118.297 kg Weight 112.491 kg Weight 115.212 kg Physical Exam Const: COMMON NORMALS: no acute distress GENERAL APPEARANCE: cooperative and frail appearing OTHER: Pursed lip breathing. Left side facial droop. Aphasic, with difficulty communicating or answering questions. Does cooperate with exam. HENMT: COMMON NORMALS: oropharynx normal Neck/C-Spine: COMMON NORMALS: no JVD Resp: COMMON NORMALS: normal respiratory effort AUSCULTATION: diminished lung sounds Cardio: COMMON NORMALS: no JVD, regular rhythm, S1 normal heart sound present, S2 normal heart sound present and No murmurs present (Cardio) RHYTHM: regular rhythm HEART SOUNDS: S1 normal heart sound present and S2 normal heart sound present GI: COMMON NORMALS: Normal to inspection, nondistended, normoactive bowel sounds present, Soft to palpation and non-tender PALPATION: Yes Soft to palpation Extremity: COMMON NORMALS: no joint enlargement and no pedal edema Neuro: COMMON NORMALS: moves all extremities Skin: COMMON NORMALS: no rashes or lesions noted GENERAL SKIN EXAM: no rashes or lesions noted Urinary Catheter Management^: Lennon: Cath Placed During This Visit: yes Reason for Continuing Indwelling Catheter: Accurate Measurement of Urinary Output in Critically Ill Patients Urinary Catheter Date of Insertion: 02/23/20 Urinary Catheter Time of Insertion: 19:52 Data : 02/24/20 03:25 02/24/20 03:25 Micro: Microbiology 02/23/20 08:31 Blood Culture - Preliminary Blood Staphylococcus species A&P Assessment and plan (1) Acute hypercapnic respiratory failure: Acute respiratory failure with hypercapnia Weaning down on nasal cannula. He is awake and alert, with difficulties to communicate due to aphasia, although this is reported his baseline. Does cooperate with exam. Continue Levaquin, breathing treatments. Status: Acute (2) Acute encephalopathy: Believed to be multifactorial with concern for underlying CVA, prior CVA history. Patient will be continued on aspirin and statin. Echocardiogram technically difficult study with possibly mild aortic stenosis. Carotid Doppler with less than 50% stenosis bilaterally. Vertebral arteries not visualized. Patient is chair and bedbound at baseline, therefore will continue to work with occupational therapy and speech therapy Appears mental status is reached his baseline. Status: Acute (3) Bacteremia: Possible bacteremia with staphylococcal species 1/4 bottles. Not sure if this is real as we have had a number of staphylococcal positive in single bottle in the hospital. We will repeat blood culture. Status: Acute Additional A&P Information Patient has bilateral coarse breath sounds with congestion, concern for aspiration, continue on Levaquin 750 mg daily. Continue speech therapy reassessments. Continue level 1 dysphagia diet with nectar thick liquids. Is on dysphagia diet at the nursing facility. Aspiration precautions. Hypotension with concern for dehydration: Blood pressure a little better, however, still somewhat soft. 98/61. Lowest was 82/49 today, but has not been more hypotensive than that in the last 24 hours. Will transfer out of ICU. Continue to monitor blood pressure while off IV fluid. Clinical concern for dehydration: Received IV fluid. He is eating and drinking currently. Encourage p.o. nutrition hydration. 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 Continue on aspirin and statin Stable increased attenuation 11 mm lesion right frontal lobe present dating back to 2009. Consider additional evaluation by MRI. History of prostate cancer: PSA within normal limits. History of dementia on memantine and Risperdal along with lorazepam as needed, due to acute worsening of mentation will hold sedating medications Hypertension: Continue home metoprolol Diet: Speech therapy to continue to work and evaluate patient, continue with dysphagia diet and thickened liquids DVT prophylaxis: Lovenox CODE STATUS: Do Not Resuscitate/DNI Attestations Medical Necessity Statement*: Continue admission for assessment and management of acute respiratory failure, possible pneumonia, possible bacteremia, possible recurrence of CVA. Coding Level of Care Code Acute Publicity Agent for [facility] Edie Diagnoses Acute hypercapnic respiratory failure J96.02 Acute encephalopathy G93.40 Bacteremia R78.81
[2020-02-25 15:45] LABS: Basophils % 0.3 %; Eosinophils % 0.3 %; Hematocrit 36.3 % (42.0-52.0); Hemoglobin 11.3 g/dL (11.7-16.6); Lymphocytes # 0.5 10^3/uL (0.8-4.8); Lymphocytes % 16.9 %; Mean Corpuscular HGB Conc 31.1 g/dL (30.0-36.0); Mean Corpuscular Hemoglobin 30.4 pg (28.0-34.0); Mean Corpuscular Volume 97.6 fL (80-94); Mean Platelet Volume 10.6 fL (7.4-10.4); Monocytes # 0.4 10^3/uL (0.2-0.9); Monocytes % 11.3 %; Neutrophils # 2.25 10^3/uL (1.8-7.7); Neutrophils % 70.3 %; Nucleated Red Blood Cells % 0 %; Platelet Count 158 10^3/cmm (130-400); Red Blood Count 3.72 10^6/uL (4.1-5.3); Red Cell Distribution Width 11.9 % (12.1-15.1); White Blood Count 3.2 10^3/uL (4.0-10.0)
[2020-02-25 15:58] LABS: Alanine Aminotransferase 19 U/L (0-41); Albumin Level 2.8 g/dL (3.5-5.2); Alkaline Phosphatase 71 IU/L (40-130); Blood Urea Nitrogen 14 mg/dL (8-23); Calcium 7.8 mg/dL (8.5-10.5); Carbon Dioxide 22 mmol/L (22-29); Chloride 107 mmol/L (98-107); Globulin 2.5 g/dL (1.3-4.6); Glucose 103 mg/dL (65-115); Osmolality Calculated 283 mOsm/kg (285-295); Sodium 136 mmol/L (136-145); Total Bilirubin 0.2 mg/dL (0.15-1.2); Total Protein 5.3 g/dL (6.6-8.7)
[2020-02-25 16:01] LABS: Anion Gap 10.9 (5-19); Aspartate Amino Transferase 21 U/L (0-40); Potassium 3.9 mmol/L (3.5-5.1)
[2020-02-25] MEDS: levofloxacin-dextrose 5 % 750 MG/150 ML PREMIX 100 MG IV (18:49)
[2020-02-25] MEDS: enoxaparin 40 mg/0.4 mL Syringe SUBCUT (18:49)
[2020-02-26] VITALS (19 sets, daily range): BP systolic 108–164; BP diastolic 69–100; PULSE 57–99; RESP 8–32; TEMP 36.4–37.4; O2SAT 92–99; BMI 38.5
[2020-02-26] MEDS: hyDRALAzine 20 mg/mL INJ 1 mL IVP (03:17)
--- NOTE | 2020-02-26 03:55 | PC.NURSE ---
Sinus Tachycardia Patient converted to ST(140s-150s) and then back to SR (80s) snd then back to ST. Patient had O2 off. Assessment done Dr Barron called orders put in by . Patient converted back to SR after Labetalol given.
--- NOTE | 2020-02-26 04:09 | ECG_ITS ---
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 Measurements Intervals [place] Rate: 86 P: 28 MI: 251 QRS: 269 QRSD: 155 T: 6 QT: 400 QTc: 479 Interpretive Statements SINUS RHYTHM WITH FIRST DEGREE AV BLOCK MARKED RIGHT AXIS DEVIATION [QRS AXIS > 100] RIGHT BUNDLE BRANCH BLOCK POSSIBLE ANTERIOR MYOCARDIAL INFARCTION, OF INDETERMINATE AGE INFERIOR MYOCARDIAL INFARCTION, OF INDETERMINATE AGE Compared to ECG 02/23/2020 14:00:20 First degree AV block now present Right-axis deviation now present Myocardial infarct finding still present Electronically Signed On 02-26-2020 22:07:40 CDT by Gloria Zavala M.D. [email or web address]
[2020-02-26] MEDS: labetalol 5 mg/mL SDV 20mL 20 MG IVP (04:15)
[2020-02-26] MEDS: ipratropium-albuterol 3 mL Neb INHALATION ×3 (04:46→15:06)
[2020-02-26 05:16] LABS: Troponin T (5th) Once 41 ng/L (0-15)
[2020-02-26 06:23] LABS: Basophils % 0.3 %; Eosinophils % 0.6 %; Hemoglobin 12.6 g/dL (11.7-16.6); Lymphocytes # 0.5 10^3/uL (0.8-4.8); Lymphocytes % 16.4 %; Mean Corpuscular HGB Conc 32.3 g/dL (30.0-36.0); Mean Corpuscular Hemoglobin 30.3 pg (28.0-34.0); Mean Corpuscular Volume 93.8 fL (80-94); Mean Platelet Volume 10.8 fL (7.4-10.4); Monocytes # 0.4 10^3/uL (0.2-0.9); Monocytes % 11.4 %; Neutrophils # 2.22 10^3/uL (1.8-7.7); Nucleated Red Blood Cells % 0 %; Platelet Count 166 10^3/cmm (130-400); Red Blood Count 4.16 10^6/uL (4.1-5.3); Red Cell Distribution Width 11.7 % (12.1-15.1); White Blood Count 3.2 10^3/uL (4.0-10.0)
[2020-02-26 07:20] LABS: D Dimer 1.11 ug/mIFEU (0-0.59)
[2020-02-26 07:21] LABS: Alanine Aminotransferase 22 U/L (0-41); Albumin Level 3.2 g/dL (3.5-5.2); Alkaline Phosphatase 76 IU/L (40-130); Anion Gap 15.4 (5-19); Aspartate Amino Transferase 26 U/L (0-40); Blood Urea Nitrogen 10 mg/dL (8-23); Calcium 8.2 mg/dL (8.5-10.5); Carbon Dioxide 19 mmol/L (22-29); Chloride 104 mmol/L (98-107); Globulin 2.9 g/dL (1.3-4.6); Glucose 96 mg/dL (65-115); Osmolality Calculated 279 mOsm/kg (285-295); Potassium 3.4 mmol/L (3.5-5.1); Sodium 135 mmol/L (136-145); Total Bilirubin 0.3 mg/dL (0.15-1.2); Total Protein 6.1 g/dL (6.6-8.7)
--- NOTE | 2020-02-26 08:55 | PC.SOCIAL ---
[facility] Page 2 of [facility] explained to patient's son Micah by phone. Initialed, dated, and timed and placed in chart. Copy provided to nurse Salazar at the patient's door who will place in by patient's bedside.
[2020-02-26] MEDS: donepezil 5 MG Tablet 10 MG PO (10:10)
[2020-02-26] MEDS: ascorbic acid 500 mg Tablet 1000 MG PO ×2 (10:10→18:32)
[2020-02-26] MEDS: citalopram 20 mg Tablet PO (10:10)
[2020-02-26] MEDS: aspirin 81 mg Chew Tablet PO (10:11)
[2020-02-26] MEDS: atorvastatin 40 mg Tablet PO (10:11)
[2020-02-26] MEDS: metoprolol succinate ER (24 HR) 25 mg Tablet 12.5 MG PO (10:11)
[2020-02-26] MEDS: pantoprazole 40 mg SDV IVP (10:12)
[2020-02-26] MEDS: memantine 5 mg tablet 10 MG PO ×2 (10:25→18:32)
[2020-02-26 16:05] LABS: SARS Covid-2 Antigen Positive (Negative)
[2020-02-26] MEDS: levofloxacin-dextrose 5 % 750 MG/150 ML PREMIX 100 MG IV (16:19)
[2020-02-26] MEDS: enoxaparin 40 mg/0.4 mL Syringe SUBCUT (16:20)
--- NOTE | 2020-02-26 18:26 | P.PN_ITS ---
Subjective Subjective: Interval history: When asked if he is doing okay shakes his head no , but does not express what is bothering him. When asked about review of systems everything is negative, including no pain in his chest, no trouble breathing, no headache, nausea or vomiting, diarrhea. When asked if he needs anything states he needs to be pulled up in bed. Vitals/I&O/Wt Last Vital Signs Temp 97.5 F L 02/26/20 16:00 Pulse 58 L 02/26/20 16:00 Resp 21 H 02/26/20 16:00 BP 108/69 02/26/20 16:00 Pulse Ox 94 02/26/20 16:00 02/26/20 02/26/20 02/26/20 06:59 14:59 22:59 Intake Total 60 / 1170 480 / 480 Output Total 850 / 850 1100 / 1950 Balance 60 / -1780 -370 / -370 -1100 / -1470 Weight last 48 hrs Weight 115.938 kg Weight 118.297 kg Weight 118.297 kg Physical Exam Const: COMMON NORMALS: no acute distress GENERAL APPEARANCE: cooperative and frail appearing OTHER: Pursed lip breathing. Left side facial droop. Aphasic, with difficulty communicating or answering questions. Does cooperate with exam. HENMT: COMMON NORMALS: oropharynx normal Neck/C-Spine: COMMON NORMALS: no JVD Resp: COMMON NORMALS: normal respiratory effort AUSCULTATION: diminished lung sounds Cardio: COMMON NORMALS: no JVD, regular rhythm, S1 normal heart sound present, S2 normal heart sound present and No murmurs present (Cardio) RHYTHM: regular rhythm HEART SOUNDS: S1 normal heart sound present and S2 normal heart sound present GI: COMMON NORMALS: Normal to inspection, nondistended, normoactive bowel sounds present, Soft to palpation and non-tender PALPATION: Yes Soft to palpation Extremity: COMMON NORMALS: no joint enlargement and no pedal edema Neuro: COMMON NORMALS: moves all extremities Skin: COMMON NORMALS: no rashes or lesions noted GENERAL SKIN EXAM: no rashes or lesions noted Urinary Catheter Management^: Lennon: Cath Placed During This Visit: yes Reason for Continuing Indwelling Catheter: Accurate Measurement of Urinary Output in Critically Ill Patients Urinary Catheter Date of Insertion: 02/23/20 Urinary Catheter Time of Insertion: 19:52 Data : 02/26/20 04:35 02/26/20 04:35 Micro: Microbiology 02/23/20 08:31 Blood Culture - Preliminary Blood Staphylococcus species A&P Assessment and plan (1) Pneumonia due to COVID-19 virus: Notify the number of patients in his senior living unit are positive coronavirus. PCR still pending. D-dimer elevated 1.11. This morning requiring 8 L of oxygen, so sent out a rapid COVID-19 test which was positive. Continue Lovenox DVT prophylaxis. He has no chest pain, no tachycardia, no unilateral swelling to indicate VTE. Monitor D-dimer. Start remdesivir, Decadron due to requirement of oxygen. Oxygen support, titrate down as tolerating. Continue Levaquin for possible superimposed bacterial pneumonia. Continue isolation. Discussed with his son and all questions answered. He is agreeable with assessment plan. Status: Acute (2) Acute hypercapnic respiratory failure: Acute respiratory failure with hypercapnia Treatment of COVID-19 pneumonia as above. Continue Levaquin for possible superimposed bacterial pneumonia. Maintain aspiration precautions. Dysphagia diet. Change breathing treatments to inhalers. Status: Acute (3) Acute encephalopathy: Believed to be multifactorial with concern for underlying CVA, prior CVA history. Patient will be continued on aspirin and statin. Echocardiogram technically difficult study with possibly mild aortic stenosis. Carotid Doppler with less than 50% stenosis bilaterally. Vertebral arteries not visualized. Patient is chair and bedbound at baseline, therefore will continue to work with occupational therapy and speech therapy Appears mental status is reached his baseline. Status: Acute (4) Bacteremia: Possible bacteremia with staphylococcal species 1/4 bottles. Not sure if this is real as we have had a number of staphylococcal positive in single bottle in the hospital. Follow repeat blood culture. Status: Acute Additional A&P Information Hypotension improved. Clinical concern for dehydration: Received IV fluid. He is eating and drinking currently. Encourage p.o. nutrition hydration. 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 Continue on aspirin and statin. Stable increased attenuation 11 mm lesion right frontal lobe present dating back to 2009. Consider additional evaluation by MRI. History of prostate cancer: PSA within normal limits. History of dementia on memantine and Risperdal along with lorazepam as needed, due to acute worsening of mentation will hold sedating medications Hypertension: Continue home metoprolol Diet: dysphagia diet DVT prophylaxis: Lovenox CODE STATUS: Do Not Resuscitate/DNI Attestations Medical Necessity Statement*: Continue admission for assessment of management of COVID-19 pneumonia, with possible superimposed bacterial pneumonia. Coding Level of Care Code Acute Case Loader Operator for [facility] Fwd Diagnoses Pneumonia due to COVID-19 virus U07.1; J12.89 Acute hypercapnic respiratory failure J96.02 Acute encephalopathy G93.40 Bacteremia R78.81
[2020-02-26 19:22] LABS: C Reactive Protein 14.6 mg/L (0.0-4.9)
[2020-02-26 20:02] LABS: Erythrocyte Sedimentation Rate 21 mm/hr (0-10)
[2020-02-26] MEDS: dexamethasone 4 mg/mL INJ 6 MG IVP (20:22)
[2020-02-26] MEDS: albuterol 8 gm MDI 1 PUFF INHALATION (21:49)
[2020-02-26] MEDS: hyDRALAzine 20 mg/mL INJ 1 mL 5 MG IVP (21:55)
[2020-02-27] VITALS (18 sets, daily range): BP systolic 116–144; BP diastolic 62–87; PULSE 68–88; RESP 16–24; TEMP 36.8–37.4; O2SAT 90–96; BMI 37.7
[2020-02-27 05:21] LABS: D Dimer 0.96 ug/mIFEU (0-0.59)
[2020-02-27 05:40] LABS: Hematocrit 39.5 % (42.0-52.0); Hemoglobin 12.6 g/dL (11.7-16.6); Lymphocytes # 0.4 10^3/uL (0.8-4.8); Lymphocytes % 16.8 %; Mean Corpuscular HGB Conc 31.9 g/dL (30.0-36.0); Mean Platelet Volume 10.3 fL (7.4-10.4); Monocytes # 0.2 10^3/uL (0.2-0.9); Neutrophils # 1.74 10^3/uL (1.8-7.7); Neutrophils % 73.1 %; Nucleated Red Blood Cells % 0 %; Platelet Count 160 10^3/cmm (130-400); Red Cell Distribution Width 11.7 % (12.1-15.1); White Blood Count 2.4 10^3/uL (4.0-10.0)
[2020-02-27 06:22] LABS: Alanine Aminotransferase 26 U/L (0-41); Albumin Level 3.2 g/dL (3.5-5.2); Alkaline Phosphatase 75 IU/L (40-130); Anion Gap 13.2 (5-19); Aspartate Amino Transferase 29 U/L (0-40); Blood Urea Nitrogen 11 mg/dL (8-23); Calcium 8.6 mg/dL (8.5-10.5); Carbon Dioxide 24 mmol/L (22-29); Chloride 107 mmol/L (98-107); Globulin 2.7 g/dL (1.3-4.6); Glucose 116 mg/dL (65-115); Osmolality Calculated 290 mOsm/kg (285-295); Potassium 4.2 mmol/L (3.5-5.1); Sodium 140 mmol/L (136-145); Total Bilirubin 0.2 mg/dL (0.15-1.2); Total Protein 5.9 g/dL (6.6-8.7)
[2020-02-27] MEDS: albuterol 8 gm MDI 1 PUFF INHALATION ×5 (08:41→23:54)
[2020-02-27] MEDS: citalopram 20 mg Tablet PO (09:59)
[2020-02-27] MEDS: ascorbic acid 500 mg Tablet 1000 MG PO ×2 (09:59→17:35)
[2020-02-27] MEDS: aspirin 81 mg Chew Tablet PO (09:59)
[2020-02-27] MEDS: memantine 5 mg tablet 10 MG PO ×2 (09:59→17:35)
[2020-02-27] MEDS: metoprolol succinate ER (24 HR) 25 mg Tablet 12.5 MG PO (09:59)
[2020-02-27] MEDS: donepezil 5 MG Tablet 10 MG PO (09:59)
[2020-02-27] MEDS: atorvastatin 40 mg Tablet PO (09:59)
[2020-02-27] MEDS: pantoprazole 40 mg SDV IVP (10:00)
[2020-02-27 10:40] LABS: Coronavirus Lab Test PTC Positive
--- NOTE | 2020-02-27 11:12 | PM.PN ---
Subjective Subjective: Interval history: When examined he is sitting up in bed, looking somewhat upset, cold button and hand. When asked if he is doing all right he shakes his head no. When asked what is wrong after a short pause he is able to state he needs someone to help him with changing channels on the TV. He denies any chest pain. Denies shortness of breath while at rest with nasal cannula in place. Denies headache, nausea, abdominal pain or diarrhea. Vitals/I&O/Wt Last Vital Signs Temp 98.3 F 02/27/20 08:00 Pulse 72 02/27/20 08:43 Resp 18 02/27/20 08:42 BP 133/78 02/27/20 08:00 Pulse Ox 92 02/27/20 08:42 02/26/20 02/27/20 02/27/20 22:59 06:59 14:59 Intake Total 280 / 760 60 / 820 Output Total 1100 / 1950 750 / 2700 Balance -820 / -1190 -690 / -1880 Weight last 48 hrs Weight 115.938 kg Weight 115.938 kg Weight 118.297 kg Physical Exam Const: COMMON NORMALS: no acute distress GENERAL APPEARANCE: cooperative and frail appearing OTHER: Pursed lip breathing. Left side facial droop. Aphasic, with difficulty communicating or answering questions. Cooperates with exam. HENMT: COMMON NORMALS: oropharynx normal Neck/C-Spine: COMMON NORMALS: no JVD Resp: COMMON NORMALS: normal respiratory effort AUSCULTATION: diminished lung sounds Cardio: COMMON NORMALS: no JVD, regular rhythm, S1 normal heart sound present, S2 normal heart sound present and No murmurs present (Cardio) RHYTHM: regular rhythm HEART SOUNDS: S1 normal heart sound present and S2 normal heart sound present GI: COMMON NORMALS: Normal to inspection, nondistended, normoactive bowel sounds present, Soft to palpation and non-tender PALPATION: Yes Soft to palpation Extremity: COMMON NORMALS: no joint enlargement GENERAL: Yes edema (Trace) Neuro: COMMON NORMALS: moves all extremities Skin: COMMON NORMALS: no rashes or lesions noted GENERAL SKIN EXAM: no rashes or lesions noted Urinary Catheter Management^: Lennon: Cath Placed During This Visit: yes Reason for Continuing Indwelling Catheter: Chronic Indwelling Urinary Catheter on Admission Urinary Catheter Date of Insertion: 02/23/20 Urinary Catheter Time of Insertion: 19:52 Data : 02/27/20 05:26 02/27/20 05:26 Micro: Microbiology 02/23/20 08:31 Blood Culture - Preliminary Blood Micrococcus Species A&P Assessment and plan (1) Pneumonia due to COVID-19 virus: Requiring 3 L of oxygen today. Lung sounds are diminished, however, he denies being particularly short of breath. No chest pain. D-dimer is bit better today at 0.96. Continue remdesivir, Decadron, oxygen support, albuterol, Spiriva. Notify the number of patients in his shelter unit are positive coronavirus. PCR still pending. D-dimer elevated 1.11. This morning requiring 8 L of oxygen, so sent out a rapid COVID-19 test which was positive. Continue Lovenox DVT prophylaxis. He has no chest pain, no tachycardia, no unilateral swelling to indicate VTE. Monitor D-dimer. Oxygen support, titrate down as tolerating. Continue Levaquin for possible superimposed bacterial pneumonia. Continue isolation. Discussed with his son and all questions answered. He is agreeable with assessment plan. Status: Acute (2) Acute hypercapnic respiratory failure: Acute respiratory failure with hypercapnia Treatment of COVID-19 pneumonia as above. Continue Levaquin for possible superimposed bacterial pneumonia. Maintain aspiration precautions. Dysphagia diet. Change breathing treatments to inhalers. Status: Acute (3) Acute encephalopathy: Believed to be multifactorial with concern for underlying CVA, prior CVA history. Patient will be continued on aspirin and statin. Echocardiogram technically difficult study with possibly mild aortic stenosis. Carotid Doppler with less than 50% stenosis bilaterally. Vertebral arteries not visualized. Patient is chair and bedbound at baseline, therefore will continue to work with occupational therapy and speech therapy Appears mental status is reached his baseline. Status: Acute (4) Bacteremia: Possible bacteremia with staphylococcal species /4 bottles. Micorcoccus species identified. Suspect sample contamination. Status: Acute Additional A&P Information Hypotension improved. Clinical concern for dehydration: Received IV fluid. He is eating and drinking currently. Encourage p.o. nutrition hydration. 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 Continue on aspirin and statin. Stable increased attenuation 11 mm lesion right frontal lobe present dating back to 2009. Consider additional evaluation by MRI. History of prostate cancer: PSA within normal limits. History of dementia on memantine and Risperdal along with lorazepam as needed, due to acute worsening of mentation will hold sedating medications Hypertension: Continue home metoprolol Diet: dysphagia diet DVT prophylaxis: Lovenox CODE STATUS: Do Not Resuscitate/DNI Attestations Medical Necessity Statement*: Continue admission for assessment management of COVID-19 pneumonia. Respiratory failure. Coding Level of Care Code Acute Laboratory Secretary for [facility] Fwd Exam Comprehensive Diagnoses Pneumonia due to COVID-19 virus U07.1; J12.89 Acute hypercapnic respiratory failure J96.02 Acute encephalopathy G93.40 Bacteremia R78.81
[2020-02-27] MEDS: enoxaparin 40 mg/0.4 mL Syringe SUBCUT (15:43)
[2020-02-27] MEDS: levofloxacin-dextrose 5 % 750 MG/150 ML PREMIX 100 MG IV (15:48)
[2020-02-27] MEDS: dexamethasone 4 mg/mL INJ 6 MG IVP (21:03)
--- NOTE | 2020-02-27 22:19 | PC.NURSE ---
sim lift to bs. patient was unable to go
[2020-02-28] VITALS (18 sets, daily range): BP systolic 110–153; BP diastolic 52–78; PULSE 63–88; RESP 17–19; TEMP 36.4–37.6; O2SAT 91–95; BMI 36.2
[2020-02-28 05:16] LABS: Basophils % 0.4 %; Hematocrit 40.8 % (42.0-52.0); Hemoglobin 13.3 g/dL (11.7-16.6); Lymphocytes # 0.4 10^3/uL (0.8-4.8); Lymphocytes % 15.7 %; Mean Corpuscular HGB Conc 32.6 g/dL (30.0-36.0); Mean Corpuscular Hemoglobin 30.2 pg (28.0-34.0); Mean Corpuscular Volume 92.5 fL (80-94); Mean Platelet Volume 10.4 fL (7.4-10.4); Monocytes # 0.2 10^3/uL (0.2-0.9); Monocytes % 6.8 %; Neutrophils # 1.89 10^3/uL (1.8-7.7); Neutrophils % 75.9 %; Nucleated Red Blood Cells % 0 %; Platelet Count 184 10^3/cmm (130-400); Red Blood Count 4.41 10^6/uL (4.1-5.3); Red Cell Distribution Width 11.6 % (12.1-15.1); White Blood Count 2.5 10^3/uL (4.0-10.0)
[2020-02-28 05:38] LABS: D Dimer 1.49 ug/mIFEU (0-0.59)
[2020-02-28 05:45] LABS: Alanine Aminotransferase 30 U/L (0-41); Albumin Level 3.3 g/dL (3.5-5.2); Alkaline Phosphatase 78 IU/L (40-130); Anion Gap 13.9 (5-19); Aspartate Amino Transferase 33 U/L (0-40); Blood Urea Nitrogen 15 mg/dL (8-23); Calcium 8.8 mg/dL (8.5-10.5); Carbon Dioxide 23 mmol/L (22-29); Chloride 104 mmol/L (98-107); Globulin 3.1 g/dL (1.3-4.6); Glucose 134 mg/dL (65-115); Osmolality Calculated 287 mOsm/kg (285-295); Potassium 3.9 mmol/L (3.5-5.1); Sodium 137 mmol/L (136-145); Total Bilirubin 0.3 mg/dL (0.15-1.2); Total Protein 6.4 g/dL (6.6-8.7)
[2020-02-28] MEDS: albuterol 8 gm MDI 1 PUFF INHALATION ×5 (08:15→23:56)
[2020-02-28] MEDS: donepezil 5 MG Tablet 10 MG PO (08:37)
[2020-02-28] MEDS: aspirin 81 mg Chew Tablet PO (08:38)
[2020-02-28] MEDS: ascorbic acid 500 mg Tablet 1000 MG PO ×2 (08:38→18:01)
[2020-02-28] MEDS: atorvastatin 40 mg Tablet PO (08:38)
[2020-02-28] MEDS: memantine 5 mg tablet 10 MG PO ×2 (08:38→18:02)
[2020-02-28] MEDS: metoprolol succinate ER (24 HR) 25 mg Tablet 12.5 MG PO (08:38)
[2020-02-28] MEDS: citalopram 20 mg Tablet PO (08:39)
[2020-02-28] MEDS: pantoprazole 40 mg SDV IVP (08:39)
--- NOTE | 2020-02-28 13:26 | P.PN_ITS ---
Subjective Subjective: Interval history: He appears to be more energetic today, more responsive, replies easier to questions. Denies pain. Denies shortness of breath. No chest pain or pressure, no headache, no nausea or vomiting, no chills or muscle aches. Watching TV. Denies any needs. Vitals/I&O/Wt Last Vital Signs Temp 99.2 F 02/28/20 12:00 Pulse 74 02/28/20 12:11 Resp 18 02/28/20 12:11 BP 120/77 02/28/20 12:00 Pulse Ox 93 02/28/20 12:11 02/27/20 02/28/20 02/28/20 22:59 06:59 14:59 Intake Total 480 / 580 60 / 640 600 / 600 Output Total 1550 / 1550 450 / 2000 Balance -1070 / -970 -390 / -1360 600 / 600 Weight last 48 hrs Weight 111.221 kg Weight 111.221 kg Weight 115.938 kg Physical Exam Const: COMMON NORMALS: no acute distress GENERAL APPEARANCE: cooperative and frail appearing OTHER: Pursed lip breathing, although less today. Left side facial droop. Today a little bit more interactive. In better spirits. HENMT: COMMON NORMALS: oropharynx normal Neck/C-Spine: COMMON NORMALS: no JVD Resp: COMMON NORMALS: normal respiratory effort AUSCULTATION: diminished lung sounds Cardio: COMMON NORMALS: no JVD, regular rhythm, S1 normal heart sound present, S2 normal heart sound present and No murmurs present (Cardio) RHYTHM: regular rhythm HEART SOUNDS: S1 normal heart sound present and S2 normal heart sound present GI: COMMON NORMALS: Normal to inspection, nondistended, normoactive bowel sounds present, Soft to palpation and non-tender PALPATION: Yes Soft to palpation Extremity: COMMON NORMALS: no joint enlargement GENERAL: Yes edema (Trace) Neuro: COMMON NORMALS: moves all extremities Skin: COMMON NORMALS: no rashes or lesions noted GENERAL SKIN EXAM: no rashes or lesions noted Urinary Catheter Management^: Lennon: Cath Placed During This Visit: yes Reason for Continuing Indwelling Catheter: Chronic Indwelling Urinary Catheter on Admission Urinary Catheter Date of Insertion: 02/23/20 Urinary Catheter Time of Insertion: 19:52 Data : 02/28/20 04:45 02/28/20 04:45 Micro: Microbiology 02/23/20 08:25 Blood Culture - Final Blood NO GROWTH AFTER 5 DAYS 02/23/20 08:31 Blood Culture - Preliminary Blood Micrococcus Species A&P Assessment and plan (1) Pneumonia due to COVID-19 virus: He is improving. Weaning down on oxygen. Continue remdesivir, Decadron. If continues to improve, consideration may be given to possibly discharging before completion of the entire course. T-max 99.6 this morning. D-dimer is little bit higher today at 1.49. Continue Lovenox prophylaxis. Recheck D-dimer. Denies chest pain or pressure. No tachycardia. Continue remdesivir, Decadron, oxygen support, albuterol, Spiriva. PCR positive. Oxygen support, titrate down as tolerating. Continue Levaquin for possible superimposed bacterial pneumonia. Continue isolation. Status: Acute (2) Acute hypercapnic respiratory failure: Acute respiratory failure with hypercapnia Treatment of COVID-19 pneumonia as above. Continue Levaquin for possible superimposed bacterial pneumonia. Maintain aspiration precautions. Dysphagia diet. Will need home oxygen evaluation prior to discharge. Status: Acute (3) Acute encephalopathy: Believed to be multifactorial with concern for underlying CVA, prior CVA history. Patient will be continued on aspirin and statin. Echocardiogram technically difficult study with possibly mild aortic stenosis. Carotid Doppler with less than 50% stenosis bilaterally. Vertebral arteries not visualized. Patient is chair and bedbound at baseline, therefore will continue to work with occupational therapy and speech therapy Appears mental status is reached his baseline. Status: Acute (4) Bacteremia: Possible bacteremia with staphylococcal species 1/4 bottles. Micorcoccus species identified. Suspect sample contamination. Status: Acute Additional A&P Information Hypotension improved. Clinical concern for dehydration: Received IV fluid. He is eating and drinking currently. Encourage p.o. nutrition hydration. 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 Continue on aspirin and statin. Stable increased attenuation 11 mm lesion right frontal lobe present dating back to 2009. Consider additional evaluation by MRI. History of prostate cancer: PSA within normal limits. History of dementia on memantine and Risperdal along with lorazepam as needed, due to acute worsening of mentation will hold sedating medications Hypertension: Continue home metoprolol Diet: dysphagia diet DVT prophylaxis: Lovenox CODE STATUS: Do Not Resuscitate/DNI Attestations Medical Necessity Statement*: Continue admission for assessment management of COVID-19, pneumonia, gradually improving respiratory failure, following possible acute on chronic CVA. Coding Level of Care Code Acute Salesperson Hosiery for [facility] Fwd Diagnoses Pneumonia due to COVID-19 virus U07.1; J12.89 Acute hypercapnic respiratory failure J96.02 Acute encephalopathy G93.40 Bacteremia R78.81
--- NOTE | 2020-02-28 14:42 | DCPLANNER ---
Pg 2 of IM updated and reviewed with Pt's Daughter in law; Raeann Mancuso via the phone. No questions.
[2020-02-28] MEDS: enoxaparin 40 mg/0.4 mL Syringe SUBCUT (17:59)
[2020-02-28] MEDS: levofloxacin-dextrose 5 % 750 MG/150 ML PREMIX 100 MG IV (17:59)
[2020-02-28] MEDS: dexamethasone 4 mg/mL INJ 6 MG IVP (21:53)
[2020-02-29] VITALS (15 sets, daily range): BP systolic 122–154; BP diastolic 77–84; PULSE 57–88; RESP 8–20; TEMP 36.5–36.9; O2SAT 88–98
[2020-02-29] MEDS: albuterol 8 gm MDI 1 PUFF INHALATION ×5 (04:01→21:47)
[2020-02-29 04:52] LABS: Basophils % 0.4 %; Eosinophils # 0.1 10^3/uL (0.0-0.8); Eosinophils % 3.9 %; Hematocrit 39.7 % (42.0-52.0); Hemoglobin 13.2 g/dL (11.7-16.6); Lymphocytes # 0.3 10^3/uL (0.8-4.8); Lymphocytes % 9.9 %; Mean Corpuscular HGB Conc 33.2 g/dL (30.0-36.0); Mean Corpuscular Volume 90.2 fL (80-94); Monocytes # 0.2 10^3/uL (0.2-0.9); Monocytes % 5.7 %; Neutrophils # 2.22 10^3/uL (1.8-7.7); Neutrophils % 78.7 %; Nucleated Red Blood Cells % 0 %; Platelet Count 168 10^3/cmm (130-400); Red Cell Distribution Width 11.5 % (12.1-15.1); White Blood Count 2.8 10^3/uL (4.0-10.0)
[2020-02-29 04:55] LABS: D Dimer 0.99 ug/mIFEU (0-0.59)
[2020-02-29 05:04] LABS: Alanine Aminotransferase 32 U/L (0-41); Albumin Level 3.4 g/dL (3.5-5.2); Alkaline Phosphatase 70 IU/L (40-130); Anion Gap 14.7 (5-19); Aspartate Amino Transferase 39 U/L (0-40); Blood Urea Nitrogen 15 mg/dL (8-23); Calcium 8.2 mg/dL (8.5-10.5); Carbon Dioxide 22 mmol/L (22-29); Chloride 101 mmol/L (98-107); Globulin 2.6 g/dL (1.3-4.6); Glucose 141 mg/dL (65-115); Osmolality Calculated 281 mOsm/kg (285-295); Potassium 3.7 mmol/L (3.5-5.1); Sodium 134 mmol/L (136-145); Total Bilirubin 0.4 mg/dL (0.15-1.2)
[2020-02-29 05:17] LABS: Slide Review Slide Review Perform
[2020-02-29] MEDS: metoprolol succinate ER (24 HR) 25 mg Tablet 12.5 MG PO (08:33)
[2020-02-29] MEDS: donepezil 5 MG Tablet 10 MG PO (08:33)
[2020-02-29] MEDS: pantoprazole DR 40 mg Tablet PO (08:33)
[2020-02-29] MEDS: ascorbic acid 500 mg Tablet 1000 MG PO ×2 (08:33→17:42)
[2020-02-29] MEDS: citalopram 20 mg Tablet PO (08:33)
[2020-02-29] MEDS: aspirin 81 mg Chew Tablet PO (08:33)
[2020-02-29] MEDS: atorvastatin 40 mg Tablet PO (08:34)
[2020-02-29] MEDS: memantine 5 mg tablet 10 MG PO ×2 (08:41→17:42)
--- NOTE | 2020-02-29 12:16 | XR_ITS ---
WS: [id number] Exam: XR chest 1V portable [id number] Date/Time of Exam: 02/29/2020 12:16 PM Reason For Exam: covid Findings: Comparison 02/23/2020. The lungs are fully expanded. Plaque atelectasis at the left pulmonary hilum. Chronic elevation of th e left diaphragm. No obvious pleural effusion. Mild cardiac enlargement unchanged. Regional bony stru ctures are intact. Monitoring leads superimpose the chest and abdomen. XR/XR chest 1V portable [id number] IMPRESSION: 1. No acute cardiopulmonary finding. 2. Mild cardiac enlargement unchanged.
[2020-02-29] MEDS: zinc gluconate 50 mg Tablet PO (13:22)
[2020-02-29 14:09] LABS: Procalcitonin 0.07 ng/mL (0-0.5)
[2020-02-29 14:11] LABS: NT Pro B Type Natriuretic Pept 1290 pg/mL (0-450); Thyroid Stimulating Hormone 2.67 uIU/mL (0.27-4.20)
[2020-02-29 14:12] LABS: Fibrinogen 480 mg/dL (174-498)
[2020-02-29 14:20] LABS: C Reactive Protein 4.8 mg/L (0.0-4.9); Creatine Phosphokinase 187 U/L (39-308); Ferritin 345 ng/mL (30-400); Iron 52 ug/dL (59-158); Lactate Dehydrogenase 234 U/L (135-225); Percent Saturation 24.1 % (20-50); Total Iron Binding Capacity 215 mcg/dl; Unsaturated Iron Binding 163 ug/dL (112-347)
[2020-02-29] MEDS: risperiDONE 1 mg Tablet PO ×2 (14:40→22:10)
[2020-02-29] MEDS: benzonatate 100 mg Capsule PO ×2 (14:40→22:09)
[2020-02-29] MEDS: enoxaparin 40 mg/0.4 mL Syringe SUBCUT (15:47)
[2020-02-29] MEDS: levofloxacin-dextrose 5 % 750 MG/150 ML PREMIX 100 MG IV (15:47)
--- NOTE | 2020-02-29 16:42 | P.PN_ITS ---
Subjective Subjective: Interval history: He appears to be more energetic today, more responsive, replies easier to questions. Denies pain. Denies shortness of breath. No chest pain or pressure, no headache, no nausea or vomiting, no chills or muscle aches. Watching TV. Denies any needs. Vitals/I&O/Wt Last Vital Signs Temp 98.0 F 02/29/20 16:00 Pulse 75 02/29/20 16:00 Resp 20 H 02/29/20 16:00 BP 125/77 02/29/20 16:00 Pulse Ox 93 02/29/20 16:00 02/29/20 02/29/20 02/29/20 06:59 14:59 22:59 Intake Total 570 / 570 Output Total 250 / 700 Balance - 570 / 570 Weight last 48 hrs Weight 111.13 kg Weight 111.221 kg Weight 111.221 kg Physical Exam Urinary Catheter Management^: Lennon: Cath Placed During This Visit: yes Reason for Continuing Indwelling Catheter: Chronic Indwelling Urinary Catheter on Admission Urinary Catheter Date of Insertion: 02/23/20 Urinary Catheter Time of Insertion: 19:52 Data : 02/29/20 04:15 02/29/20 04:15 Micro: Microbiology 02/29/20 13:10 Blood Culture - Preliminary Blood SPECIMEN COLLECTED 02/29/20 12:58 Blood Culture - Preliminary Blood SPECIMEN COLLECTED 02/23/20 08:31 Blood Culture - Final Blood Micrococcus Species A&P Assessment and plan (1) Pneumonia due to COVID-19 virus: Continue remdesivir to finish a 5-day course. Continue with Decadron 6 mg IV daily. Continue with Advair, Spiriva. Unfortunately patient is not able to take breathing treatments well and as he has poor respiratory reserve and is not able to follow commands well. Continue with albuterol inhalation treatment as well. Start on zinc and vitamin C. D-dimer elevated but trending down. Continue Lovenox prophylaxis. Recheck D- dimer. Denies chest pain or pressure. No tachycardia. If patient is requiring more oxygen supplementation will do a CTA to rule out PE. Restart patient on home dose of Lasix 40 mg daily. Strict input output charting. Daily weights. Continue Levaquin for possible superimposed bacterial pneumonia. Will check for urine Legionella, bacterial antigen. Continue isolation. Status: Acute (2) Acute hypercapnic respiratory failure: Acute respiratory failure with hypercapnia Treatment of COVID-19 pneumonia as above. Continue Levaquin for possible superimposed bacterial pneumonia. Maintain aspiration precautions. Dysphagia diet. Will need home oxygen evaluation prior to discharge. Status: Acute (3) Acute encephalopathy: Believed to be multifactorial with concern for underlying CVA, prior CVA history. Patient will be continued on aspirin and statin. Echocardiogram technically difficult study with possibly mild aortic stenosis. Carotid Doppler with less than 50% stenosis bilaterally. Vertebral arteries not visualized. Patient is chair and bedbound at baseline, therefore will continue to work with occupational therapy and speech therapy Appears mental status is reached his baseline. Status: Acute (4) Bacteremia: Most likely contamination. Possible bacteremia with staphylococcal species 1/4 bottles. Micorcoccus species identified. Repeat blood cultures. Status: Acute (5) Leukopenia: Secondary to viral infection. We will continue to monitor. ANC within normal limits for now. Status: Acute (6) COPD (chronic obstructive pulmonary disease): Status: Acute (7) HTN (hypertension): Status: Acute Additional A&P Information History of CVA with acute encephalopathy: Chronic lacunar infarcts noted in the right lateral basal ganglia. Continue on aspirin and statin. Stable increased attenuation 11 mm lesion right frontal lobe present dating back to 2009. Consider additional evaluation by MRI. History of prostate cancer: PSA within normal limits. History of dementia on memantine, Aricept, Celexa, trazodone and Risperdal along with lorazepam as needed. Continue to hold trazodone and lorazepam. Hypertension: Goal blood pressure less than 140/90 mmHg. Continue home metoprolol Diet: dysphagia diet DVT prophylaxis: Lovenox CODE STATUS: Do Not Resuscitate/DNI Patient's son Mr. Obrien has been updated in detail regarding his condition. All the questions were answered. He states he is the DPOA and would like to be updated rather than patient's Ms. Cespedes as she has Alzheimer's dementia. Discharge planning: Most likely discharge back to SNF once finished the course of antiviral treatment and if oxygen supplementation remains stable. Would need home O2 evaluation prior to discharge. Attestations Medical Necessity Statement*: Needs further hospitalization for management of acute encephalopathy and hypoxia because of COVID-19 pneumonia Time Spent in Patient Care: Greater than 35 minutes (>than 50% of time spent in counselling and/or direct pt care on unit) . Coding Level of Care Code Acute Dedicated Regional Driver for [facility] Fwd Diagnoses Pneumonia due to COVID-19 virus U07.1; J12.89 Acute hypercapnic respiratory failure J96.02 Acute encephalopathy G93.40 Bacteremia R78.81 Leukopenia D72.819 COPD (chronic obstructive pulmonary disease) J44.9 HTN (hypertension) I10
[2020-02-29] MEDS: ferrous gluconate 324 mg Tablet PO (17:42)
--- NOTE | 2020-02-29 18:09 | PC.NURSE ---
END OF SHIFT SUMMARY pt has been A/Ox2 and is very pleasant. both IVs are patent. pt has been able to rest well today. pt able to swallow morning and evening PO meds well today. pt does need assistance with meals. noticed pt has difficulty finding words at times, but from report from non destructive evaluation manager nurse, JAIRO Cuevas, this is his baseline. pt has not complained of any pain today. pt is currently resting in bed watching TV with call light within reach.
[2020-02-29] MEDS: dexamethasone 4 mg/mL INJ 6 MG IVP (22:09)
[2020-03-01] VITALS (14 sets, daily range): BP systolic 100–146; BP diastolic 63–89; PULSE 53–79; RESP 8–20; TEMP 36.2–37.3; O2SAT 90–98; BMI 35.9
[2020-03-01] MEDS: albuterol 8 gm MDI 1 PUFF INHALATION ×5 (03:44→20:58)
[2020-03-01 05:32] LABS: Basophils % 0.3 %; Hematocrit 38.2 % (42.0-52.0); Hemoglobin 12.5 g/dL (11.7-16.6); Lymphocytes # 0.3 10^3/uL (0.8-4.8); Lymphocytes % 8.4 %; Mean Corpuscular HGB Conc 32.7 g/dL (30.0-36.0); Mean Corpuscular Volume 91.6 fL (80-94); Mean Platelet Volume 10.5 fL (7.4-10.4); Monocytes # 0.2 10^3/uL (0.2-0.9); Monocytes % 5.1 %; Neutrophils # 3.12 10^3/uL (1.8-7.7); Neutrophils % 84.6 %; Nucleated Red Blood Cells % 0 %; Platelet Count 173 10^3/cmm (130-400); Red Blood Count 4.17 10^6/uL (4.1-5.3); Red Cell Distribution Width 11.6 % (12.1-15.1); White Blood Count 3.7 10^3/uL (4.0-10.0)
[2020-03-01 05:49] LABS: Fibrinogen 461 mg/dL (174-498)
[2020-03-01 05:56] LABS: Alanine Aminotransferase 34 U/L (0-41); Albumin Level 3.4 g/dL (3.5-5.2); Alkaline Phosphatase 68 IU/L (40-130); Anion Gap 14.7 (5-19); Aspartate Amino Transferase 35 U/L (0-40); Blood Urea Nitrogen 15 mg/dL (8-23); C Reactive Protein 3.8 mg/L (0.0-4.9); Calcium 7.8 mg/dL (8.5-10.5); Carbon Dioxide 22 mmol/L (22-29); Chloride 103 mmol/L (98-107); Chol HDL Ratio 2.68 mg/dL (1.0-5.00); Cholesterol 83 mg/dL (0-200); Creatine Phosphokinase 137 U/L (39-308); Ferritin 305 ng/mL (30-400); Glucose 146 mg/dL (65-115); HDL Cholesterol 31 mg/dL (60-100); LDL Cholesterol Calculated 46 mg/dL (50-129); Lactate Dehydrogenase 243 U/L (135-225); Osmolality Calculated 285 mOsm/kg (285-295); Potassium 3.7 mmol/L (3.5-5.1); Sodium 136 mmol/L (136-145); Total Bilirubin 0.4 mg/dL (0.15-1.2); Total Protein 5.4 g/dL (6.6-8.7); Triglycerides 32 mg/dL (0-150); VLDL Cholestrol Calculation 6 mg/dL (0-30)
--- NOTE | 2020-03-01 06:00 | XR_ITS ---
WS: [id number] Exam: XR chest 1V portable [id number] Date/Time of Exam: 03/01/2020 6:00 AM Reason For Exam: covid Findings: Comparison 02/29/2020. Infiltrate and/or atelectasis noted in the left lower lobe. The right lung remains clear. No pneumoth orax. Normal heart size. Prominence of the superior mediastinum on the right unchanged since previous exams as far back as 01/30/2018. The bony thorax is intact. XR/XR chest 1V portable [id number] IMPRESSION: 1. Infiltrate and atelectasis in the left lower lobe. No other significant find ing.
[2020-03-01 08:00] LABS: Estmated Average Glucose 120; Hemoglobin A1C 5.8 % (4.0-6.0)
[2020-03-01] MEDS: aspirin 81 mg Chew Tablet PO (08:20)
[2020-03-01] MEDS: donepezil 5 MG Tablet 10 MG PO (08:20)
[2020-03-01] MEDS: ferrous gluconate 324 mg Tablet PO ×2 (08:20→17:36)
[2020-03-01] MEDS: ascorbic acid 500 mg Tablet 1000 MG PO ×2 (08:20→17:36)
[2020-03-01] MEDS: metoprolol succinate ER (24 HR) 25 mg Tablet 12.5 MG PO (08:21)
[2020-03-01] MEDS: zinc gluconate 50 mg Tablet PO (08:21)
[2020-03-01] MEDS: benzonatate 100 mg Capsule PO ×3 (08:21→21:49)
[2020-03-01] MEDS: risperiDONE 1 mg Tablet PO ×3 (08:21→21:49)
[2020-03-01] MEDS: pantoprazole DR 40 mg Tablet PO (08:21)
[2020-03-01] MEDS: citalopram 20 mg Tablet PO (08:21)
[2020-03-01] MEDS: FUROsemide 40 mg Tablet PO (08:21)
[2020-03-01] MEDS: memantine 5 mg tablet 10 MG PO ×2 (08:21→17:36)
[2020-03-01] MEDS: atorvastatin 40 mg Tablet PO (08:21)
--- NOTE | 2020-03-01 09:28 | PM.PN ---
Subjective Subjective: Interval history: No acute events overnight. Has remained hemodynamically stable and afebrile. On examination he is on 2 L saturating 96%. He appears to be more energetic today, more responsive, replies easier to questions. No chest pain or pressure, no headache, no nausea or vomiting, no chills or muscle aches. Watching TV. Vitals/I&O/Wt Last Vital Signs Temp 98.1 F 03/01/20 08:00 Pulse 79 03/01/20 08:35 Resp 20 H 03/01/20 08:35 BP 112/73 03/01/20 08:00 Pulse Ox 94 03/01/20 08:35 02/29/20 03/01/20 03/01/20 22:59 06:59 14:59 Intake Total 570 / 1140 100 / 1240 140 / 140 Output Total 350 / 350 700 / 1050 Balance 220 / 790 -600 / 190 140 / 140 Weight last 48 hrs Weight 110.393 kg Weight 111.13 kg Physical Exam Narrative: EXAM NARRATIVE: General: No acute distress, AO x 1-2, not oriented to place, hard of hearing, HEENT: PERRLA, pupils bilaterally equal and reactive Chest: Normal vesicular breath sounds, coarse crackles present in right lower zone, equal good air entry bilaterally CVS: S1-S2 regular, no murmurs, no tachycardia, no gallops, no rubs Abdomen: Soft, nontender, no organomegaly, bowel sounds present Neuro: No focal deficits, no facial deformity, moving all limbs. Urinary Catheter Management^: Lennon: Cath Placed During This Visit: yes Reason for Continuing Indwelling Catheter: Chronic Indwelling Urinary Catheter on Admission Urinary Catheter Date of Insertion: 02/23/20 Urinary Catheter Time of Insertion: 19:52 Data : 03/01/20 04:38 03/01/20 04:38 Micro: Microbiology 02/29/20 17:00 Legionella Urinary Antigen - Final Urine Catheterized 02/29/20 13:10 Blood Culture - Preliminary Blood SPECIMEN COLLECTED 02/29/20 12:58 Blood Culture - Preliminary Blood SPECIMEN COLLECTED A&P Assessment and plan (1) Pneumonia due to COVID-19 virus: Continue remdesivir to finish a 5-day course. Day 4 today. Continue with Decadron 6 mg IV daily. Continue with Advair, Spiriva. Unfortunately patient is not able to take breathing treatments well and as he has poor respiratory reserve and is not able to follow commands well. Continue with albuterol inhalation treatment as well. Start on zinc and vitamin C. D-dimer elevated but trending down. Continue Lovenox prophylaxis. Recheck D-dimer. Denies chest pain or pressure. No tachycardia. If patient is requiring more oxygen supplementation will do a CTA to rule out PE. Restart patient on home dose of Lasix 40 mg daily. Strict input output charting. Daily weights. DC Lennon catheter. Patient has had Levaquin for last 8 days. Legionella is negative. We will stop Levaquin. Status: Acute (2) Acute hypercapnic respiratory failure: Acute respiratory failure with hypercapnia Treatment of COVID-19 pneumonia as above. Maintain aspiration precautions. Dysphagia diet. Will need home oxygen evaluation prior to discharge. Status: Acute (3) Acute encephalopathy: Believed to be multifactorial with concern for underlying CVA, prior CVA history. Patient will be continued on aspirin and statin. Echocardiogram technically difficult study with possibly mild aortic stenosis. Carotid Doppler with less than 50% stenosis bilaterally. Vertebral arteries not visualized. Patient is chair and bedbound at baseline, therefore will continue to work with occupational therapy and speech therapy Appears mental status is reached his baseline. Status: Acute (4) Bacteremia: Most likely contamination. Possible bacteremia with staphylococcal species 1/4 bottles. Micorcoccus species identified. Repeat blood cultures have remained negative preliminary. Status: Acute (5) Leukopenia: Secondary to viral infection. We will continue to monitor. ANC within normal limits for now. Status: Acute (6) COPD (chronic obstructive pulmonary disease): Status: Acute (7) HTN (hypertension): Status: Acute Additional A&P Information History of CVA with acute encephalopathy: Chronic lacunar infarcts noted in the right lateral basal ganglia. Continue on aspirin and statin. Stable increased attenuation 11 mm lesion right frontal lobe present dating back to 2009. Consider additional evaluation by MRI. History of prostate cancer: PSA within normal limits. History of dementia on memantine, Aricept, Celexa, trazodone and Risperdal along with lorazepam as needed. Continue to hold trazodone and lorazepam. Hypertension: Goal blood pressure less than 140/90 mmHg. Continue home metoprolol Diet: dysphagia diet DVT prophylaxis: Lovenox CODE STATUS: Do Not Resuscitate/DNI Patient's son Mr. Obrien has been updated in detail regarding his condition. All the questions were answered. He states he is the DPOA and would like to be updated rather than patient's Ms. Cespedes as she has Alzheimer's dementia. Discharge planning: Most likely discharge back to SNF once finished the course of antiviral treatment and if oxygen supplementation remains stable. Would need home O2 evaluation prior to discharge. Attestations Medical Necessity Statement*: Needs further hospitalization to complete treatment of COVID-19 pneumonia. Time Spent in Patient Care: Greater than 35 minutes (>than 50% of time spent in counselling and/or direct pt care on unit). Coding Level of Care Code Acute [employer] Equipment Repairer for [facility] Fwd Diagnoses Pneumonia due to COVID-19 virus U07.1; J12.89 Acute hypercapnic respiratory failure J96.02 Acute encephalopathy G93.40 Bacteremia R78.81 Leukopenia D72.819 COPD (chronic obstructive pulmonary disease) J44.9 HTN (hypertension) I10
--- NOTE | 2020-03-01 14:20 | PC.NURSE ---
received orders to remove glaser. pt tolerated well. gardenia care provided.
[2020-03-01] MEDS: enoxaparin 40 mg/0.4 mL Syringe SUBCUT (16:17)
--- NOTE | 2020-03-01 17:10 | PC.SOCIAL ---
IMM Updated IMM updated with family. Initialed, dated, and timed and placed back in chart. Asked nursing staff to place copy at patient's bedside as he is currently in COVID isolation.
[2020-03-01] MEDS: dexamethasone 4 mg/mL INJ 6 MG IVP (21:50)
--- NOTE | 2020-03-01 22:36 | PC.NURSE ---
PT IS INCONTINENT. WE DID A FULL BED CHANGE AND CLEANED HIM UP @2200.
--- NOTE | 2020-03-01 23:55 | PC.NURSE ---
CHECKED PT FOR INCONTINENT AND PT WAS DRY.
[2020-03-02] VITALS (9 sets, daily range): BP systolic 114–118; BP diastolic 73–79; PULSE 54–87; RESP 15–19; TEMP 36.5–37.3; O2SAT 95–98; BMI 35.9
[2020-03-02] MEDS: albuterol 8 gm MDI 1 PUFF INHALATION ×3 (00:15→09:50)
[2020-03-02] MEDS: aspirin 81 mg Chew Tablet PO (09:00)
[2020-03-02] MEDS: citalopram 20 mg Tablet PO (09:00)
[2020-03-02] MEDS: zinc gluconate 50 mg Tablet PO (09:00)
[2020-03-02] MEDS: FUROsemide 40 mg Tablet PO (09:00)
[2020-03-02] MEDS: memantine 5 mg tablet 10 MG PO (09:00)
[2020-03-02] MEDS: donepezil 5 MG Tablet 10 MG PO (09:00)
[2020-03-02] MEDS: ferrous gluconate 324 mg Tablet PO (09:00)
[2020-03-02] MEDS: risperiDONE 1 mg Tablet PO (09:01)
[2020-03-02] MEDS: ascorbic acid 500 mg Tablet 1000 MG PO (09:01)
[2020-03-02] MEDS: metoprolol succinate ER (24 HR) 25 mg Tablet 12.5 MG PO (09:01)
[2020-03-02] MEDS: atorvastatin 40 mg Tablet PO (09:01)
[2020-03-02] MEDS: benzonatate 100 mg Capsule PO (09:01)
[2020-03-02] MEDS: pantoprazole DR 40 mg Tablet PO (09:01)
[2020-03-02 10:24] LABS: Basophils % 0.4 %; Hematocrit 41.8 % (42.0-52.0); Hemoglobin 13.3 g/dL (11.7-16.6); Lymphocytes # 0.4 10^3/uL (0.8-4.8); Lymphocytes % 8.1 %; Mean Corpuscular HGB Conc 31.8 g/dL (30.0-36.0); Mean Corpuscular Hemoglobin 30.1 pg (28.0-34.0); Mean Corpuscular Volume 94.6 fL (80-94); Mean Platelet Volume 11.4 fL (7.4-10.4); Monocytes # 0.3 10^3/uL (0.2-0.9); Monocytes % 5.8 %; Neutrophils # 4.37 10^3/uL (1.8-7.7); Nucleated Red Blood Cells % 0 %; Platelet Count 192 10^3/cmm (130-400); Red Blood Count 4.42 10^6/uL (4.1-5.3); Red Cell Distribution Width 11.9 % (12.1-15.1); White Blood Count 5.2 10^3/uL (4.0-10.0)
[2020-03-02 10:46] LABS: C Reactive Protein 3.2 mg/L (0.0-4.9); Creatine Phosphokinase 54 U/L (39-308); Ferritin 257 ng/mL (30-400)
[2020-03-02 10:51] LABS: Alanine Aminotransferase 30 U/L (0-41); Albumin Level 2.9 g/dL (3.5-5.2); Alkaline Phosphatase 69 IU/L (40-130); Aspartate Amino Transferase 24 U/L (0-40); Blood Urea Nitrogen 18 mg/dL (8-23); Calcium 8.3 mg/dL (8.5-10.5); Carbon Dioxide 21 mmol/L (22-29); Chloride 109 mmol/L (98-107); Glucose 119 mg/dL (65-115); Osmolality Calculated 293 mOsm/kg (285-295); Sodium 140 mmol/L (136-145); Total Bilirubin 0.3 mg/dL (0.15-1.2); Total Protein 5.9 g/dL (6.6-8.7)
[2020-03-02 11:20] LABS: Lactate Dehydrogenase 225 U/L (135-225)
[2020-03-02 11:42] LABS: Fibrinogen 340 mg/dL (174-498)
--- NOTE | 2020-03-02 11:45 | PM.DCS ---
Discharge Providers Date of Admission: 02/23/20 11:52 Date of Discharge: March 02, 2020 Attending Provider at Admission: Jessica Vaca DO Attending Provider at Discharge: Boby Urbano MD Diagnoses at Discharge Discharge Diagnosis (1) Pneumonia due to COVID-19 virus: Status: Acute (2) Acute hypercapnic respiratory failure: Status: Acute (3) Acute encephalopathy: Status: Acute (4) Bacteremia: Status: Acute (5) Leukopenia: Status: Acute (6) COPD (chronic obstructive pulmonary disease): Status: Acute (7) HTN (hypertension): Status: Acute Reason for Visit Reason for Visit: AMS, POSS STROKE Hospital Course Discharge Summary: Jose Mancuso is a 84 year old male with a past medical history of dementia, prostate cancer, COPD, history of prior CVA and hypertension that presented to the emergency department [facility] today for altered mental status. Patient's last known well was 2:00 this morning. Reported to be suddenly unresponsive but could move his eyes. Patient was sent to the ER for further evaluation and treatment. Unable to obtain HPI from patient due to his acute encephalopathy. Patient was admitted for further evaluation and treatment of hypercapnic respiratory failure. On admission he was placed on BiPAP ventilation started on broad-spectrum antibiotics with concerns for aspiration and started on IV fluids for concerns of acute kidney injury due to dehydration. On admission there was some concerns of encephalopathy because of CVA. Patient did have history of CVA for which he underwent echocardiogram and carotid ultrasound. Echocardiogram was technically difficult study but showed possible mild aortic stenosis right carotid Doppler showed less than 50% stenosis bilaterally and vertebral arteries were not visualized. As patient is at baseline chair and bedbound he was treated with continuance of his home dose of aspirin and physical and Occupational Therapy. During hospitalization his oxygen requirement were similar. So COVID-19 was checked and came back positive for which she was started on antiviral treatment along with IV steroids. He responded appropriately to treatment and on the day of discharge he is on 2 L oxygen supplementation to keep his saturation over 94%. Patient is at his baseline mentation which unfortunately is AO x1-2. He has finished his course of oral antibiotics. During hospitalization he was found to have 1 out of 4 bottles positive for micrococcus which is most likely secondary to contamination. Repeat blood cultures have remained negative. He has remained afebrile. He is been discharged in hemodynamically stable condition with advice to follow-up with his primary care provider within next 1 to 3 days. He has been discharged on oral Medrol pack and inhalation treatment. Patient is DNR/DNI. Physical Exam Narrative: EXAM NARRATIVE: General: No acute distress, AO x 1-2, not oriented to place, hard of hearing, HEENT: PERRLA, pupils bilaterally equal and reactive Chest: Normal vesicular breath sounds, coarse crackles present in right lower zone, equal good air entry bilaterally CVS: S1-S2 regular, no murmurs, no tachycardia, no gallops, no rubs Abdomen: Soft, nontender, no organomegaly, bowel sounds present Neuro: No focal deficits, no facial deformity, moving all limbs. Urinary Catheter Management^: Lennon: Cath Placed During This Visit: yes, but has since been removed by the nurse Reason for Continuing Indwelling Catheter: Not indwelling catheter Urinary Catheter Date of Insertion: 02/23/20 Urinary Catheter Time of Insertion: 19:52 Date Urinary Catheter Removed: 03/02/20 Discharge Data Data Completed and Pending: Completed Studies During Hospitalization Category Date Time Status CT head wo con* 7 0450 Stat Cat Scan 02/23/20 07:55 Completed XR chest 1V leandro ble 13780 Q48H Exams 03/01/20 06:00 Completed XR chest 1V leandro ble [id number] Routine Exams 02/29/20 12:16 Completed XR chest 1V leandro ble [id number] Stat Exams 02/23/20 07:56 Completed CV carotid duplex BI* [id number] Routine Ultrasound 02/23/20 14:17 Completed CV echo complete* [id number] Routine Ultrasound 02/23/20 14:17 Completed Pending at discharge Category Date Time Status XR chest 1V leandro ble 00132 Q48H Exams 03/03/20 06:00 Ordered XR chest 1V leandro ble 03570 Q48H Exams 03/05/20 05:00 Ordered Blood Culture Sta t Lab 02/29/20 13:10 Results C Reactive Protei n AM LABS Lab 03/03/20 04:00 Ordered Comprehensive Met abolic Panel AM LA BS Lab 03/03/20 04:00 Ordered Creatine Phosphok inase AM LABS Lab 03/03/20 04:00 Ordered Ferritin AM LABS Lab 03/03/20 04:00 Ordered Fibrinogen AM LAB S Lab 03/03/20 04:00 Ordered Lactate Dehydroge nase AM LABS Lab 03/03/20 04:00 Ordered Sputum Culture an d Gram Stain Stat Lab 02/29/20 12:16 Uncollected Labs from last 24 hours 03/02/20 03/02/20 03/02/20 10:05 10:05 10:05 WBC RBC Hgb Hct MCV MCH MCHC RDW Plt Count MPV Neut % (Auto) Lymph % (Auto) [place] % (Auto) Eos % (Auto) Baso % (Auto) Neut # (Auto) Lymph # (Auto) [place] # (Auto) Eos # (Auto) Baso # (Auto) Nucleated RBC % (a uto) Nucleated RBCs # Fibrinogen 340 Sodium 140 Potassium 4.0 Chloride 109 H Carbon Dioxide 21 L Anion Gap 14.0 BUN 18 Creatinine 0.7 GFR Calculation Not Reportable Glucose 119 H Calculated Osmolal ity 293 Calcium 8.3 L Ferritin 257 Total Bilirubin 0.3 AST 24 ALT 30 Alkaline Phosphata se 69 Lactate Dehydrogen ase 225 Creatine Kinase 54 C-Reactive Protein 3.2 Total Protein 5.9 L Albumin 2.9 L Globulin 3.0 03/02/20 10:05 WBC 5.2 RBC 4.42 Hgb 13.3 Hct 41.8 L MCV 94.6 H MCH 30.1 MCHC 31.8 RDW 11.9 L Plt Count 192 MPV 11.4 H Neut % (Auto) 84.0 Lymph % (Auto) 8.1 [place] % (Auto) 5.8 Eos % (Auto) 0.0 Baso % (Auto) 0.4 Neut # (Auto) 4.37 Lymph # (Auto) 0.4 L [place] # (Auto) 0.3 Eos # (Auto) 0.0 Baso # (Auto) 0.0 Nucleated RBC % (a uto) 0 Nucleated RBCs # 0.0 Fibrinogen Sodium Potassium Chloride Carbon Dioxide Anion Gap BUN Creatinine GFR Calculation Glucose Calculated Osmolal ity Calcium Ferritin Total Bilirubin AST ALT Alkaline Phosphata se Lactate Dehydrogen ase Creatine Kinase C-Reactive Protein Total Protein Albumin Globulin Vitals: Last Vital Signs Temp 97.7 F 03/02/20 04:00 Pulse 87 03/02/20 04:55 Resp 17 03/02/20 04:50 BP 114/73 03/02/20 04:00 Pulse Ox 97 03/02/20 04:50 Discharge Plan Discharge Patient Disposition: Xfer SNF Condition: Stable Prescriptions: New Spiriva with HandiHaler 18 mcg Capsule, W/Inhalation Device 18 mcg inhalation DAILY.RESPIRATORY Qty: 14 RF: 0 benzonatate 100 mg Capsule 100 mg PO TID Qty: 10 RF: 0 ferrous gluconate 324 mg (37.5 mg iron) Tablet 324 mg PO BIDWM Qty: 30 RF: 0 zinc gluconate 50 mg Tablet 50 mg PO DAILY Qty: 30 RF: 0 methylprednisolone [Medrol (Jose G)] 4 mg tablets,dose pack See Rx Instructions .ROUTE .COMPLEX Qty: 21 RF: 0 Continued furosemide 40 mg Tablet 40 mg PO DAILY RF: 0 bicalutamide 50 mg Tablet 50 mg PO DAILY RF: 0 Vitamin C 1,000 mg Tablet 1 g PO BID RF: 0 potassium chloride 10 mEq Capsule, Extended Release 10 meq PO DAILY RF: 0 Tylenol 325 mg Tablet 650 mg PO TID PRN (Reason: Fever Or Pain) RF: 0 ipratropium-albuterol 0.5 mg-3 mg(2.5 mg base)/3 mL Solution For Nebulization 3 ml INHALATION TID RF: 0 trazodone 50 mg Tablet 25 mg PO DAILY RF: 0 hydrocodone-acetaminophen 5-325 mg Tablet 1 tab PO BID PRN (Reason: Pain) RF: 0 donepezil 10 mg Tablet 10 mg PO DAILY RF: 0 Senna-S 8.6-50 mg Tablet 1 tab-cap PO DAILY RF: 0 Jossie-Tussin 100 mg/5 mL Liquid 100 mg PO Q4H PRN (Reason: Cough) RF: 0 methenamine hippurate 1 gram Tablet 1 g PO BID RF: 0 citalopram 20 mg Tablet 20 mg PO DAILY RF: 0 famotidine 20 mg Tablet 20 mg PO BID RF: 0 lorazepam 0.5 mg Tablet 0.5 mg PO TID RF: 0 Milk of Magnesia 400 mg/5 mL Suspension 400 mg PO DAILY PRN (Reason: Constipation) RF: 0 bisacodyl 10 mg Suppository 10 mg OR DAILY PRN (Reason: Constipation) RF: 0 Enema Disposable 19-7 gram/118 mL Enema 118 ml OR DAILY PRN (Reason: Constipation) RF: 0 Aspirin Childrens 81 mg Tablet,Chewable 81 mg PO DAILY RF: 0 metoprolol succinate 25 mg Tablet Extended Release 24 Hr 12.5 mg PO DAILY RF: 0 Claritin 10 mg Tablet 10 mg PO DAILY RF: 0 memantine 10 mg Tablet 10 mg PO BID RF: 0 Discontinued risperidone 1 mg Tablet 1 mg PO TID RF: 0 Discharge Orders: Discharge Order (Routine); Ordered 03/02/20 Ordered By: Boby Urbano Referrals: Pedrito Cervantes Jr, MD [Family Provider] - 1-3 days Discharge Diet: Usual diet Discharge Activity: Resume usual activity and Increase activity as tolerated Activity Restrictions/Additional Instructions: Patient is supposed to be on Medrol pack and to wean off as directed on the pack. He supposed to see his primary care provider within next 1 to 3 days. He supposed to be on Advair and Spiriva for next 2 weeks for inhalation treatment. Resperidal has been stopped due to concerns of oversedation. Discharge Attestations Time Spent in Discharge Care*: greater than 30 min Specific Discharge Activities: Specific discharge activities: discussing with pcp/other providers, discussing with case management rn/social workers/dc planners, documenting/other paperwork and evaluating patient/reviewing data Status at Discharge: Cognitive status at discharge: moderately impaired cognition, Behavioral status at discharge: cooperative, Functional status at discharge: bed bound Overall status at discharge: patient is progressing back to baseline Quality Metrics Clinical Quality Measures During this hospital stay, did patient experience: None Coding Level of Care Code Acute Data Governance Consultant for Mario Irizarry Diagnoses Pneumonia due to COVID-19 virus U07.1; J12.89 Acute hypercapnic respiratory failure J96.02 Acute encephalopathy G93.40 Bacteremia R78.81 Leukopenia D72.819 COPD (chronic obstructive pulmonary disease) J44.9 HTN (hypertension) I10
--- NOTE | 2020-03-02 14:31 | PC.NURSE ---
Report was called to [facility]. Patient was loaded and taken via stretcher to [facility] an acute care hospital. IV was discontinued to left wrist and secured with cotton ball and coban.
== END 2020-03-02 14:34 | disposition skilled nursing facility (03) | DRG 177 ==
LOC: ER 08:36 → ICU 12:48 → MEDSURG 02-26 00:03
PROVIDERS: Internal Medicine; Admitting Provider Family Medicine; Emergency Provider Family Medicine; Family Provider Family Medicine; Visit Provider Student in an Organized Health Care Education/Training Program
DX: U07.1 COVID-19 (principal); J12.89 Other viral pneumonia; J96.02 Acute respiratory failure with hypercapnia; J15.9 Unspecified bacterial pneumonia; J44.0 Chronic obstructive pulmonary disease with (acute) lower respiratory infection; G93.40 Encephalopathy, unspecified; R78.81 Bacteremia; F03.90 Unspecified dementia, unspecified severity, without behavioral disturbance, psychotic disturbance, mood disturbance, and anxiety; Z85.46 Personal history of malignant neoplasm of prostate; I69.920 Aphasia following unspecified cerebrovascular disease; I10 Essential (primary) hypertension; I95.9 Hypotension, unspecified; E86.0 Dehydration; Z66 Do not resuscitate; I35.0 Nonrheumatic aortic (valve) stenosis; Z79.891 Long term (current) use of opiate analgesic; Z79.82 Long term (current) use of aspirin
CPT/HCPCS: 12345; 36415; 36416; 36600; 51701; 51702; 70450; 71045; 80051; 80053; 80061; 81003; 82009; 82140; 82550; 82728; 82810; 82962; 83036; 83540; 83550; 83605; 83615; 83690; 83735; 83880; 83986; 84145; 84153; 84443; 84484; 85025; 85378; 85384; 85651; 86140; 87040; 87077; 87205; 87426; 87449; 87635; 87641; 92610; 93005; 93306; 93880; 94640; 94660; 94664; 96372; 96375; 99284; C9113; J0360; J1100; J1650; J1956; J3490; J3535; J7030; J7040; J8999

== ENCOUNTER 2020-03-12 11:22 | Inpatient (IN) | payer MEDICARE, BC, SELFPAY ==
[2020-03-12] VITALS (24 sets, daily range): BP systolic 81–103; BP diastolic 58–73; PULSE 73–126; RESP 15–29; TEMP 36.3–38.8; O2SAT 93–99; BMI 34.0
--- NOTE | 2020-03-12 11:26 | XRR_ITS ---
PROCEDURE INFORMATION: Exam: XR Chest, 1 View Exam date and time: 03/12/2020 11:27 AM Age: 84 years old Clinical indication: Shortness of breath; Additional info: SOB TECHNIQUE: Imaging protocol: XR of the chest Views: 1 view. COMPARISON: CR XR chest 1V portable [id number] 03/01/2020 6:36 AM FINDINGS: Lungs: Low lung volumes are seen. The lungs are otherwise clear. No consolidation. Pleural space: Elevated left hemidiaphragm No pleural effusion. No pneumothorax. Heart/Mediastinum: Unremarkable. No cardiomegaly. Bones/joints: Unremarkable. XR/XR chest 1V portable [id number] IMPRESSION: 1. Low lung volumes 2. Elevated left hemidiaphragm 3. Otherwise No acute findings.
--- NOTE | 2020-03-12 11:26 | ECG_ITS ---
[facility] Test Date: 2020-03-12 Pat Name: Jose Mancuso Department: Room: Gender: Male Donor Technician: : 1935 Requested By: Esme Bonilla Order Number: [id number] Kwaku MD: Gloria Zavala M.D. Measurements Intervals [place] Rate: 122 P: -8 WV: 168 QRS: 266 QRSD: 141 T: 19 QT: 324 QTc: 463 Interpretive Statements SINUS TACHYCARDIA MARKED RIGHT AXIS DEVIATION [QRS AXIS > 100] RIGHT BUNDLE BRANCH BLOCK [120+ ms QRS DURATION, UPRIGHT V1, 40+ ms S IN I/aVL/V4/V5/V6] ANTEROSEPTAL MYOCARDIAL INFARCTION [40+ ms Q WAVE IN V1-V4], OF INDETERMINATE AGE Compared to ECG 02/26/2020 04:22:27 Sinus rhythm no longer present First degree AV block no longer present Myocardial infarct finding still present Electronically Signed On 03-13-2020 8:05:56 SALES REPRESENTATIVE ADVERTISING by Gloria Zavala M.D. [id number]
--- NOTE | 2020-03-12 11:32 | PC.NURSE ---
RT at bedside upon pt arrival to draw ABG and place pt on Bipap
[2020-03-12 11:33] LABS: ABG PCO2 41.9 mmHg (35-45); ABG PH Result 7.42 (7.35-7.45); Arterial Blood Gas Hematocrit 43.5 % (42-52); Base Excess ABG 2.5 mmol/L (-2.0-2.0); Blood Gas Allen Test Pos; Blood Gas Sample Site Radial, left; Blood Gas Sample Type Arterial; Carboxyhemoglobin 0.9 %THgb (0.4-20.1); HCO3 ABG 27.3 mmol/L (22-26); HGB O2 Sat 97.7 % (95-100); Methemoglobin 0.9 % (0.4-1.5); Total Hemoglobin 14.2 g/dL (14-18)
--- NOTE | 2020-03-12 11:41 | ED_ITS ---
HPI - Altered Mental Status General: Chief Complaint: Altered Mental Status Stated Complaint: RESP DISTRESS Time Seen by Provider: 03/12/20 11:23 Source: EMS Mode of arrival: EMS Limitations: altered mental status History of Present Illness: HPI narrative: 84-year-old male who is here from [facility] with severe respiratory distress along with fever. No history is available from patient as he is altered. Patient is DNR/DNI. Per [facility] he has had increasing shortness of breath requiring oxygen and decreased mentation. Patient has rales and decreased breath sounds here. He is tachycardic and febrile to 101. Patient will respond to stimuli but unable to answer any questions. Review of Systems General: Reports: ROS unobtainable due to mental status PFSH ED PFSH: Medical History (Updated 03/12/20 @ 13:48 by Esme Bonilla MD) BPH (benign prostatic hyperplasia) COPD (chronic obstructive pulmonary disease) CVA (cerebral vascular accident) Dementia History of subarachnoid hemorrhage following trauma HTN (hypertension) Hyperlipidemia Obstructive sleep apnea Social History (Updated 02/23/20 @ 11:56 by Jessica Vaca DO) Housing: Care Home Physical Exam Const: COMMON NORMALS: apparent distress and negative for patient oriented x3 EXAM LIMITATIONS: altered mental status GENERAL APPEARANCE: in distress and ill appearing HENMT: COMMON NORMALS: normocephalic and atraumatic HEAD & SCALP: normocephalic and atraumatic Eye: COMMON NORMALS: Equal, round and reactive pupils present and EOMs intact bilaterally PUPIL: Yes Equal, round and reactive pupils present Neck/C-Spine: COMMON NORMALS: full ROM and supple Chest: COMMONS NORMALS: normal inspection of the chest and normal palpation of entire chest wall Resp: EFFORT & INSPECTION: Yes tachypneic and Yes respiratory distress AUSCULTATION: rales and diminished lung sounds Cardio: COMMON NORMALS: regular rate, regular rhythm and No murmurs present (Cardio) RATE: regular rate RHYTHM: regular rhythm GI: COMMON NORMALS: Normal to inspection, nondistended, normoactive bowel sounds present, Soft to palpation, non-tender and no masses PALPATION: Yes Soft to palpation Extremity: COMMON NORMALS: normal to inspection and full ROM Neuro: COMMON NORMALS: moves all extremities and no focal motor deficits; negative for patient oriented x3 Psych: COMMON NORMALS: negative for mental status grossly normal Skin: COMMON NORMALS: no rashes or lesions noted and no wounds GENERAL SKIN EXAM: no rashes or lesions noted Course Vital Signs: Vital signs: Vital Signs Temperature 99.9 F H 03/12/20 13:30 Pulse Rate 93 03/12/20 13:30 Respiratory Rate 22 H 03/12/20 13:30 Blood Pressure 94/66 03/12/20 13:30 Pulse Oximetry 96 03/12/20 13:30 MDM - Altered Mental Status MDM Narrative: Medical decision making narrative: Patient presents here with septic shock likely from acute cystitis and possibly pneumonia. Patient's blood pressure is much improved after IV fluids and his heart rates improved as well. Patient does appear dehydrated as well. Patient started on broad course antibiotics I spoke to hospitalist and will admit at this time. Patient has been stable while in the ER. Lab Data: Labs: Lab Results 03/12/20 03/12/20 03/12/20 Range/Units 11:20 11:35 11:35 WBC 11.7 H (4.0-10.0) 10^3/ uL RBC 4.44 (4.1-5.3) 10^6/u L Hgb 13.4 (11.7-16.6) g/dL Hct 43.6 (42.0-52.0) % MCV 98.2 H (80-94) fL MCH 30.2 (28.0-34.0) pg MCHC 30.7 (30.0-36.0) g/dL RDW 12.6 (12.1-15.1) % Plt Count 204 (130-400) 10^3/c mm MPV 11.4 H (7.4-10.4) fL Neut % (Auto) 86.1 % Lymph % (Auto) 5.0 % [place] % (Auto) 7.8 % Eos % (Auto) 0.1 % Baso % (Auto) 0.3 % Neut # (Auto) 10.07 H (1.8-7.7) 10^3/u L Lymph # (Auto) 0.6 L (0.8-4.8) 10^3/u L [place] # (Auto) 0.9 (0.2-0.9) 10^3/u L Eos # (Auto) 0.0 (0.0-0.8) 10^3/u L Baso # (Auto) 0.0 (0.0-0.1) 10^3/u L Nucleated RBC % (a uto) 0 % Nucleated RBCs # 0.0 /100WBC PT 15.00 H (12.1-14.9) SECO NDS INR 1.15 (0.8-1.2) Specimen Type Arterial Sample Site Radial, left ABG pH 7.42 (7.35-7.45) ABG pCO2 41.9 (35-45) mmHg ABG pO2 133.0 H (80.0-100.0) mmH g ABG HCO3 27.3 H (22-26) mmol/L ABG Base Excess 2.5 H (-2.0-2.0) mmol/ L Saroj Test Pos Hematocrit 43.5 (42-52) % Hgb O2 Saturation 97.7 (95-100) % Carboxyhemoglobin 0.9 (0.4-20.1) %THgb Methemoglobin 0.9 (0.4-1.5) % Total Hemoglobin 14.2 (14-18) g/dL O2 Delivery Device Nc Outpatient Pharmacy Manager ID Duner Sodium (136-145) mmol/L Potassium (3.5-5.1) mmol/L Chloride (98-107) mmol/L Carbon Dioxide (22-29) mmol/L Anion Gap (5-19) BUN (8-23) mg/dL Creatinine (0.7-1.2) mg/dL GFR Calculation Glucose (65-115) mg/dL Calculated Osmolal ity (285-295) mOsm/k g Lactate (0.5-2.2) mmol/L Calcium (8.5-10.5) mg/dL Total Bilirubin (0.15-1.2) mg/dL AST (0-40) U/L ALT (0-41) U/L Alkaline Phosphata se (40-130) IU/L NT-Pro-B Natriuret Pep (0-450) pg/mL Total Protein (6.6-8.7) g/dL Albumin (3.5-5.2) g/dL Globulin (1.3-4.6) g/dL Urine Color (Yellow) Urine Appearance (CLEAR) Urine pH (5-7) Ur Specific Gravit y (1.005-1.030) Urine Protein (Negative) Urine Glucose (UA) (Normal) Urine Ketones (Negative) Urine Blood (Negative) Urine Nitrate (Negative) Urine Bilirubin (Negative) Urine Urobilinogen (Negative) mg/dL Ur Leukocyte Divine ase (Negative) Urine RBC (0-2) /hpf Urine WBC (0-5) /hpf Ur Squamous Epith Cells (0-5) /hpf Amorphous Sediment Urine Bacteria (NONE) /hpf Urine Mucus /hpf 03/12/20 03/12/20 03/12/20 Range/Units 11:35 11:35 11:45 WBC (4.0-10.0) 10^3/ uL RBC (4.1-5.3) 10^6/u L Hgb (11.7-16.6) g/dL Hct (42.0-52.0) % MCV (80-94) fL MCH (28.0-34.0) pg MCHC (30.0-36.0) g/dL RDW (12.1-15.1) % Plt Count (130-400) 10^3/c mm MPV (7.4-10.4) fL Neut % (Auto) % Lymph % (Auto) % [place] % (Auto) % Eos % (Auto) % Baso % (Auto) % Neut # (Auto) (1.8-7.7) 10^3/u L Lymph # (Auto) (0.8-4.8) 10^3/u L [place] # (Auto) (0.2-0.9) 10^3/u L Eos # (Auto) (0.0-0.8) 10^3/u L Baso # (Auto) (0.0-0.1) 10^3/u L Nucleated RBC % (a uto) % Nucleated RBCs # /100WBC PT (12.1-14.9) SECO NDS INR (0.8-1.2) Specimen Type Sample Site ABG pH (7.35-7.45) ABG pCO2 (35-45) mmHg ABG pO2 (80.0-100.0) mmH g ABG HCO3 (22-26) mmol/L ABG Base Excess (-2.0-2.0) mmol/ L Saroj Test Hematocrit (42-52) % Hgb O2 Saturation (95-100) % Carboxyhemoglobin (0.4-20.1) %THgb Methemoglobin (0.4-1.5) % Total Hemoglobin (14-18) g/dL O2 Delivery Device Outpatient Pharmacy Manager ID Sodium 150 H (136-145) mmol/L Potassium 4.3 (3.5-5.1) mmol/L Chloride 111 H (98-107) mmol/L Carbon Dioxide 26 (22-29) mmol/L Anion Gap 17.3 (5-19) BUN 41 H (8-23) mg/dL Creatinine 1.3 H (0.7-1.2) mg/dL GFR Calculation Not Reportable Glucose 129 H (65-115) mg/dL Calculated Osmolal ity 322 H (285-295) mOsm/k g Lactate 1.2 (0.5-2.2) mmol/L Calcium 8.9 (8.5-10.5) mg/dL Total Bilirubin 1.1 (0.15-1.2) mg/dL AST 38 (0-40) U/L ALT 50 H (0-41) U/L Alkaline Phosphata se 93 (40-130) IU/L NT-Pro-B Natriuret Pep 2415 H (0-450) pg/mL Total Protein 6.9 (6.6-8.7) g/dL Albumin 3.2 L (3.5-5.2) g/dL Globulin 3.7 (1.3-4.6) g/dL Urine Color Yellow (Yellow) Urine Appearance Cloudy (CLEAR) Urine pH 7 (5-7) Ur Specific Gravit y 1.010 (1.005-1.030) Urine Protein 2+ H (Negative) Urine Glucose (UA) Norm (Normal) Urine Ketones 1+ H (Negative) Urine Blood 3+ H (Negative) Urine Nitrate Negative (Negative) Urine Bilirubin Neg (Negative) Urine Urobilinogen Neg (Negative) mg/dL Ur Leukocyte Divine ase 2+ H (Negative) Urine RBC 15-25 H (0-2) /hpf Urine WBC Too numerous to c nt H (0-5) /hpf Ur Squamous Epith Cells 0-4 H (0-5) /hpf Amorphous Sediment Not Reportable Urine Bacteria 4+ H (NONE) /hpf Urine Mucus 1+ /hpf Imaging Data^: CXR: Attestation: I personally reviewed and interpreted this imaging study as follows: Radiologist's impression: [address] [place] [address] XRay Report Signed Patient: Jose Mancuso Unit #: [id number] : 1935 Age/Sex: 84 / M ADM Date: 0 Loc: ER Room/Bed: Attending Dr: Ordering Provider/Ordering MD: Esme Bonilla MD Date of Service: 03/12/20 Procedure(s): XR chest 1V portable [id number] Accession Number(s): [id number] Report Number: [id number] PROCEDURE INFORMATION: Exam: XR Chest, 1 View Exam date and time: 03/12/2020 11:27 AM Age: 84 years old Clinical indication: Shortness of breath; Additional info: SOB TECHNIQUE: Imaging protocol: XR of the chest Views: 1 view. COMPARISON: CR XR chest 1V portable [id number] 03/01/2020 6:36 AM FINDINGS: Lungs: Low lung volumes are seen. The lungs are otherwise clear. No consolidation. Pleural space: Elevated left hemidiaphragm No pleural effusion. No pneumothorax. Heart/Mediastinum: Unremarkable. No cardiomegaly. Bones/joints: Unremarkable. XR/XR chest 1V portable [id number] IMPRESSION: 1. Low lung volumes 2. Elevated left hemidiaphragm 3. Otherwise No acute findings. EKG Data^: EKG 1: Attestation: I personally reviewed and interpreted this EKG as follows: EKG interpretation date: 03/12/20 EKG interpretation time: 11:40 Interpretation: Sinus tach heart [id number] with no ST or T wave abnormalities QRS 141 QTc 397 Critical Care Time Critical Care Time: Critical Care Time: Yes Total Critical Care Time: 36 Attestation: This case had a high probability of a clinically significant, sudden, or life threatening deterioration of this patient's condition which required my full and direct attention, intervention and personal management. Discharge Plan Discharge Patient Disposition: Admitted As Inpatient Clinical Impression: Septic shock, Acute cystitis Condition: Stable Referrals: Pedrito Cervantes Jr, MD [Family Provider] - Coding Level of Care Code ED Film Waxer for Chg Fwd Exam Comprehensive
[2020-03-12 11:42] LABS: Oxygen Device NC
[2020-03-12] MEDS: sodium chloride 0.9% 1,000 ML 999 ML IV ×2 (11:45→11:48)
[2020-03-12 11:58] LABS: Basophils % 0.3 %; Eosinophils % 0.1 %; Hematocrit 43.6 % (42.0-52.0); Hemoglobin 13.4 g/dL (11.7-16.6); Lymphocytes # 0.6 10^3/uL (0.8-4.8); Mean Corpuscular HGB Conc 30.7 g/dL (30.0-36.0); Mean Corpuscular Hemoglobin 30.2 pg (28.0-34.0); Mean Corpuscular Volume 98.2 fL (80-94); Mean Platelet Volume 11.4 fL (7.4-10.4); Monocytes # 0.9 10^3/uL (0.2-0.9); Monocytes % 7.8 %; Neutrophils # 10.07 10^3/uL (1.8-7.7); Neutrophils % 86.1 %; Nucleated Red Blood Cells % 0 %; Platelet Count 204 10^3/cmm (130-400); Red Blood Count 4.44 10^6/uL (4.1-5.3); Red Cell Distribution Width 12.6 % (12.1-15.1); White Blood Count 11.7 10^3/uL (4.0-10.0)
[2020-03-12] MEDS: piperacillin-tazobactam 3.375 GM in sodium chloride 0.9% (plus) 50 ML IV ×2 (12:04→17:17)
[2020-03-12] MEDS: vancomycin 1,000 MG in sodium chloride 0.9% 250 ML 250 MG IV (12:04)
[2020-03-12 12:17] LABS: Lactate (Lactic Acid level) 1.2 mmol/L (0.5-2.2)
[2020-03-12 12:27] LABS: Alanine Aminotransferase 50 U/L (0-41); Albumin Level 3.2 g/dL (3.5-5.2); Alkaline Phosphatase 93 IU/L (40-130); Anion Gap 17.3 (5-19); Aspartate Amino Transferase 38 U/L (0-40); Blood Urea Nitrogen 41 mg/dL (8-23); Calcium 8.9 mg/dL (8.5-10.5); Carbon Dioxide 26 mmol/L (22-29); Chloride 111 mmol/L (98-107); Globulin 3.7 g/dL (1.3-4.6); Glucose 129 mg/dL (65-115); NT Pro B Type Natriuretic Pept 2415 pg/mL (0-450); Osmolality Calculated 322 mOsm/kg (285-295); Potassium 4.3 mmol/L (3.5-5.1); Sodium 150 mmol/L (136-145); Total Bilirubin 1.1 mg/dL (0.15-1.2); Total Protein 6.9 g/dL (6.6-8.7)
[2020-03-12 12:33] LABS: Add Urine Microscopic? YES; Bilirubin Urine Neg (Negative); Blood Urine 3+ (Negative); Glucose Urine UA Norm (Normal); Ketones Urine 1+ (Negative); Leukocyte Esterase Urine 2+ (Negative); Nitrate Urine Negative (Negative); Protein Urine 2+ (Negative); Urine Appearance Cloudy (CLEAR); Urine Color Yellow (Yellow); Urobilinogen Urine Neg (Negative); pH Urine 7 (5-7)
[2020-03-12 12:34] LABS: RBC Urine 15-25 /hpf (0-2); Squamous Epithelial Cell Urine 0-4 /hpf (0-5); WBC Urine TOO NUMEROUS TO CNT /hpf (0-5)
[2020-03-12 12:35] LABS: Add Urine Culture? No; Bacteria Urine 4+ /hpf; Mucus Urine 1+ /hpf
[2020-03-12 12:36] LABS: INR 1.15 (0.8-1.2)
--- NOTE | 2020-03-12 13:49 | P.HP_ITS ---
Providers/Chief Complaint Admitting Physician: Andie Villalobos MD Primary Care Provider: Dr. Sherly Kiser Chief Complaint: RESP DISTRESS History of Present Illness Jose Mancuso is a 84 year old male with PMHx noted below presents from [facility] due to noted decreased responsiveness, fever, tachypnea since yesterday evening. This is the last time that he took his medications per nursing staff. He is currently requiring BiPAP support in the ER during my evaluation and is very somnolent so unable to obtain history directly from him. Collateral information obtained from discussion with nursing staff, review of medical record including old [facility] records. He was recently admitted to our facility in February during which time he was treated for COVID-19 infection. He reportedly just completed his quarantine, and was retested, tested negative at the long-term approximately 2 days ago. He has baseline advanced dementia so baseline mental status is quite limited and he does not appear to be oxygen dependent at baseline. Per vital signs recorded prior to his departure from the long-term he had a temperature of 101.4F, blood pressure of 100/56, 90% on 4 L nasal cannula. He was quite hypotensive, tachycardic, tachypneic on his arrival to the ER. Placed on BiPAP, so far has received 3 L normal saline boluses with noted improvement in his blood pressure and heart rate. He remains febrile with most recent temperature being 101.9F. So far he has received a dose of vancomycin and Zosyn as well. Further work-up indicates a urinalysis that is strongly indicative of infection. This was obtained as a cath specimen following placement of a Lennon catheter. He is noted to have mild leukocytosis with a white count of 11.7, lactic acid of 1.2, normal hemoglobin at 13.4, sodium of 150, BUN of 41, creatinine of 1.3, blood glucose of 129, BNP of 2400. Chest x-ray is unremarkable for any acute findings. He will require further IV fluid hydration, IV antibiotics and continued hemodynamic status and respiratory status monitoring hence need for admission. Review of Systems General: Reports: ROS unobtainable due to mental status (obtained from long-term staff) Const: Reports: fever(s) Resp: Reports: dyspnea Neuro: Reports: other (decreased responsiveness) Medications/Allergies Home Medications Medication Instructions Recorded Confirmed Last Taken Type Aspirin Childrens 81 mg PO DAILY 02/23/20 02/23/20 Unknown History Claritin 10 mg PO DAILY 02/23/20 02/23/20 Unknown History Enema Disposable 118 ml OK DAILY PRN 02/23/20 02/23/20 Unknown History Jossie-Tussin 100 mg PO Q4H PRN 02/23/20 02/23/20 Unknown History Milk of Magnesia 400 mg PO DAILY PRN 02/23/20 02/23/20 Unknown History Senna-S 1 tab-cap PO DAILY 02/23/20 02/23/20 Unknown History Tylenol 650 mg PO TID PRN 02/23/20 02/23/20 Unknown History Vitamin C 1 g PO BID 02/23/20 02/23/20 Unknown History bicalutamide 50 mg PO DAILY 02/23/20 02/23/20 Unknown History bisacodyl 10 mg OK DAILY PRN 02/23/20 02/23/20 Unknown History citalopram 20 mg PO DAILY 02/23/20 02/23/20 Unknown History donepezil 10 mg PO DAILY 02/23/20 02/23/20 Unknown History famotidine 20 mg PO BID 02/23/20 02/23/20 Unknown History furosemide 40 mg PO DAILY 02/23/20 02/23/20 Unknown History hydrocodone-acetaminophen 1 tab PO BID PRN 02/23/20 02/23/20 Unknown History ipratropium-albuterol 3 ml INHALATION TID 02/23/20 02/23/20 Unknown History lorazepam 0.5 mg PO TID 02/23/20 02/23/20 Unknown History memantine 10 mg PO BID 02/23/20 02/23/20 Unknown History methenamine hippurate 1 g PO BID 02/23/20 02/23/20 Unknown History potassium chloride 10 meq PO DAILY 02/23/20 02/23/20 Unknown History trazodone 25 mg PO DAILY 02/23/20 02/23/20 Unknown History ferrous gluconate 324 mg PO BIDWM #30 tab 03/02/20 Unknown Rx tiotropium bromide [Spiriva with 18 mcg INHALATION 03/02/20 Unknown Rx HandiHaler] DAILY.RESPIRATORY #14 inh zinc gluconate 50 mg PO DAILY #30 tab 03/02/20 Unknown Rx hydrocodone-acetaminophen 1 tab PO BID 1103/12/20 03/11/20 History risperidone 1 mg PO TID 03/12/20 03/12/20 03/11/20 History Allergies Allergy/AdvReac Type Severity Reaction Status Date / Time No Known Allergies Allergy Verified 02/23/20 07:36 PFSH Acute PFSH: Medical History (Updated 03/12/20 @ 14:45 by Andie Villalobos MD) BPH (benign prostatic hyperplasia) COPD (chronic obstructive pulmonary disease) CVA (cerebral vascular accident) Dementia History of subarachnoid hemorrhage following trauma HTN (hypertension) Hyperlipidemia Obstructive sleep apnea Prostate cancer -s/p radiation therapy (completed 03/2018) Surgical History History of appendectomy Family History Family/Other No problems noted. Father Cancer prostate cancer Social History (Updated 02/23/20 @ 11:56 by Jessica Vaca DO) Housing: Longterm Vitals/I&O/Wt Last Vital Signs Temp 99.9 F H 03/12/20 13:30 Pulse 93 03/12/20 13:30 Resp 22 H 03/12/20 13:30 BP 94/66 03/12/20 13:30 Pulse Ox 96 03/12/20 13:30 03/11/20 03/12/20 03/12/20 22:59 06:59 14:59 Intake Total 1400 / 1400 Balance 1400 / 1400 Weight last 48 hrs Weight 104.326 kg Physical Exam Const: GENERAL APPEARANCE: ill appearing and frail appearing NUTRITIONAL APPEARANCE: obese OTHER: -difficult to arouse HENMT: COMMON NORMALS: normocephalic and atraumatic HEAD & SCALP: nor mocephalic and atraumatic MOUTH: moist mucous membranes abnormal Details: parched Eye: OTHER: -noted purulent drainage from both eyes and matted eyelashes bilaterally Neck/C-Spine: GENERAL: Yes normal visual inspection and Yes trachea midline Resp: COMMON NORMALS: normal respiratory effort, No retractions, No use of accessory muscles and clear to auscultation bilaterally EFFORT & INSPECTION: Yes symmetric chest movement and Yes tachypneic AUSCULTATION: clear to auscultation bilaterally OTHER: -on BiPAP, FiO2-40% Cardio: COMMON NORMALS: regular rate, regular rhythm, S1 normal heart sound present, S2 normal heart sound present and No murmurs present (Cardio) RATE: regular rate RHYTHM: regular rhythm HEART SOUNDS: S1 normal heart sound present and S2 normal heart sound present OTHER: -borderline low BP GI: COMMON NORMALS: Normal to inspection, nondistended, normoactive bowel sounds present and Soft to palpation INSPECTION: Yes central obesity PALPATION: Yes Soft to palpation : BLADDER/KIDNEY EXAM: Yes catheter in place Catheter type (Male): urethral Extremity: COMMON NORMALS: normal to inspection, no clubbing, cyanosis or edema and no pedal edema Neuro: OTHER: -unable to assess due to mental status Psych: OTHER: -unable to assess due to mental status Skin: COMMON NORMALS: no jaundice, no petechiae and no mottling GENERAL SKIN EXAM: Excoriation (bilateral inguinal folds) Urinary Catheter Management^: Lennon: Cath Placed During This Visit: yes Reason for Continuing Indwelling Catheter: Accurate Measurement of Urinary Output in Critically Ill Patients Urinary Catheter Date of Insertion: 03/12/20 Urinary Catheter Time of Insertion: 11:53 Data : 03/12/20 11:35 03/12/20 11:35 Micro: Microbiology 03/12/20 11:35 Blood Culture - Preliminary Blood SPECIMEN COLLECTED A&P Assessment and plan (1) Septic shock: -noted to be tachycardic, hypotensive, tachypneic, hypoxic, febrile, with clinical evidence of infection (UTI), leukocytosis, and BERNARD -so far has received 3 L NS boluses with noted improvement in hemodynamic sta tus; will continue IV fluid hydration -Currently on BiPAP support wean as tolerated, monitor respiratory status, supplemental oxygen as needed -Continue to monitor vital signs closely -Telemetry monitoring -Mild leukocytosis, lactic acid within normal limits, currently febrile, T-max of 101.9F -UA with noted evidence of infection -Lennon catheter placed in ER -f/u blood and urine cx -CXR unremarkable -just recovered from COVID-19 infection; tested negative at long-term following completion of quarantine period -received dose of Vanc, Zosyn; continue Zosyn for now -antiemetics, antipyretics as needed Status: Acute (2) Acute cystitis: -UA with noted evidence of infection -Lennon catheter placed in ER -f/u urine cx -f/u blood cx -continue Zosyn Status: Acute Qualifiers: Hematuria presence: without hematuria Qualified Code(s): N30.00 - Acute cystitis without hematuria (3) Dehydration: -clinically appears to be dehydrated, currently with decreased responsiveness so limited PO intake -continue IVF hydration -noted acute renal impairment -monitor vital signs Status: Acute (4) Acute kidney injury: -secondary to dehydration and sepsis -monitor renal function, avoid nephrotoxins, renally dose meds -IVF hydration -has Lennon catheter in place, monitor urine output Status: Acute (5) CVA (cerebral vascular accident): -known prior hx of CVA -resume ASA when PO appropriate Status: Chronic Qualifiers: CVA mechanism: unspecified Qualified Code(s): I63.9 - Cerebral infar ction, unspecified (6) Dementia: -strict fall, aspiration precautions -resume meds when PO appropriate Status: Chronic Qualifiers: Dementia type: unspecified type Dementia behavioral disturbance: with behavioral disturbance Qualified Code(s): F03.91 - Unspecified dementia with behavioral disturbance (7) COPD (chronic obstructive pulmonary disease): -no acute exacerbation currently -not oxygen dependent at baseline Status: Chronic Qualifiers: COPD type: unspecified COPD Qualified Code(s): J44.9 - Chronic obstructive pulmonary disease, unspecified (8) HTN (hypertension): -hypotensive, hold BP meds -monitor vital signs Status: Chronic Qualifiers: Hypertension type: essential hypertension Qualified Code(s): I10 - Essential (primary) hypertension (9) Obstructive sleep apnea: Status: Chronic (10) Hyperlipidemia: Status: Chronic Qualifiers: Hyperlipidemia type: unspecified Qualified Code(s): E78.5 - Hyperlipidemia, unspecified Additional A&P Information -Advanced age -bilateral bacterial conjunctivitis; start on erythromycin ointment, warm compresses -inguinal intertrigo; nystatin powder, keep skin folds clean and dry -hx of prostate cancer s/p radiation treatment, on androgen deprivation therapy -recent COVID-19 infection, just completed quarantine period, tested negative at long-term at the end of her quarantine -NPO for now pending improvement in mental status -GI ppx with famotidine -DVT ppx with lovenox -Dispo: return to [facility] -Code status: DNR/DNI; paperwork in chart Attestations Medical Necessity Statement*: Jose Mancuso's hospital stay will require greater than 2 midnights for management of UTI with associated septic shock, dehydration, requiring IVF, IV antibiotics. Time Spent in Patient Care: Greater than 35 minutes (>than 50% of time spent in counselling and/or direct pt care on unit) . Coding Level of Care Code Acute Neonatologist for Chg Fwd Exam Comprehensive Diagnoses Septic shock A41.9; R65.21 Acute cystitis N30.00 Hematuria presence: without hematuria Dehydration E86.0 Acute kidney injury N17.9 CVA (cerebral vascular accident) I63.9 CVA mechanism: unspecified Dementia F03.91 Dementia type: unspecified type Dementia behavioral disturbance: with behavioral disturbance COPD (chronic obstructive pulmonary disease) J44.9 COPD type: unspecified COPD HTN (hypertension) I10 Hypertension type: essential hypertension Obstructive sleep apnea G47.33 Hyperlipidemia E78.5 Hyperlipidemia type: unspecified Sepsis Event Note Evaluation Current stage of sepsis: septic shock Initial hypotension due to sepsis/infection: MAP < 65 mmHg Persistent hypotension due to sepsis/infection: MAP < 65 mmHg Possible source: genitourinary Focused Exam Vital Signs Temp Pulse Pulse Resp BP BP Pulse Ox 03/12/20 14:51 82 16 96/67 95 03/12/20 14:30 83 95 03/12/20 14:15 88 15 103/72 96 03/12/20 13:30 99.9 F H 91 15 90/61 96 03/12/20 13:21 88 20 H 94/66 95 03/12/20 13:07 94 20 H 96/68 96 03/12/20 12:40 89 15 95/66 95 03/12/20 11:55 113 H 16 86/66 94 03/12/20 11:53 112 H 28 H 81/59 94 03/12/20 11:41 121 H 94 03/12/20 11:33 126 H 28 H 97/73 96 03/12/20 11:23 101.9 F H 121 H 26 H 94/71 97 Respiratory exam: Present respiratory distress (on BiPAP) Cardiovascular exam: Present S1, S2 and tachycardia Skin exam: pale Date exam was performed: 03/12/20 Time exam was performed: 15:01 Bedside Monitoring Fluid responsiveness: Fluid Responsive Date bedside monitoring was performed: 03/12/20 Time bedside monitoring was performed: 15:01 Problem List (1) Septic shock: Status: Acute (2) Acute cystitis: Status: Acute (3) Dehydration: Status: Acute (4) Acute kidney injury: Status: Acute (5) CVA (cerebral vascular accident): Status: Chronic (6) Dementia: Status: Chronic (7) COPD (chronic obstructive pulmonary disease): Status: Chronic (8) HTN (hypertension): Status: Chronic (9) Obstructive sleep apnea: Status: Chronic (10) Hyperlipidemia: Status: Chronic
--- NOTE | 2020-03-12 15:28 | PC.NURSE ---
engineering technical writer entered room to do admission assessment. patient unresponsive. Dr Villalobos notified.
--- NOTE | 2020-03-12 15:45 | PC.NURSE ---
continuous pulse ox applied to patient and turned on. Clarissa RT in room.
[2020-03-12] MEDS: ipratropium-albuterol 3 mL Neb INHALATION ×2 (15:46→20:07)
[2020-03-12] MEDS: sodium chloride 0.45% 1,000 ML 100 ML IV (16:01)
--- NOTE | 2020-03-12 16:07 | PC.RESP ---
SPOKE WITH DR. SOARES AT PT BEDSIDE. SHE GAVE VERBAL ORDER TO CHANGE PT TO CPAP. PT SAT 93% RR 20 HR 88
--- NOTE | 2020-03-12 17:06 | PC.NURSE ---
Read and agree with assessment.
[2020-03-12] MEDS: famotidine 20 mg/2 mL INJ IVP (17:16)
[2020-03-12] MEDS: enoxaparin 40 mg/0.4 mL Syringe SUBCUT (17:16)
[2020-03-12] MEDS: nystatin powder 15 gm Btl 1 APPLIC TOPICAL (17:58)
[2020-03-12] MEDS: erythromycin Op Oint 3.5 gm Tube 1 APPLIC EYE-BOTH (17:58)
[2020-03-13] VITALS (23 sets, daily range): BP systolic 95–127; BP diastolic 59–84; PULSE 72–100; RESP 17–40; TEMP 36.4–39; O2SAT 89–97
[2020-03-13] MEDS: piperacillin-tazobactam 3.375 GM in sodium chloride 0.9% (plus) 50 ML IV ×2 (02:25→10:08)
[2020-03-13] MEDS: sodium chloride 0.45% 1,000 ML 100 ML IV ×2 (02:26→12:00)
[2020-03-13 05:31] LABS: Anion Gap 13.9 (5-19); Blood Urea Nitrogen 36 mg/dL (8-23); Calcium 8.3 mg/dL (8.5-10.5); Carbon Dioxide 26 mmol/L (22-29); Chloride 116 mmol/L (98-107); Glucose 99 mg/dL (65-115); Osmolality Calculated 322 mOsm/kg (285-295); Potassium 3.9 mmol/L (3.5-5.1); Sodium 152 mmol/L (136-145)
[2020-03-13] MEDS: famotidine 20 mg/2 mL INJ IVP ×2 (07:02→16:26)
[2020-03-13 07:13] LABS: Basophils % 0.3 %; Eosinophils # 0.2 10^3/uL (0.0-0.8); Eosinophils % 1.8 %; Hematocrit 39.4 % (42.0-52.0); Hemoglobin 11.8 g/dL (11.7-16.6); Lymphocytes # 0.7 10^3/uL (0.8-4.8); Lymphocytes % 7.1 %; Mean Corpuscular HGB Conc 29.9 g/dL (30.0-36.0); Mean Corpuscular Hemoglobin 30.4 pg (28.0-34.0); Mean Corpuscular Volume 101.5 fL (80-94); Mean Platelet Volume 11.6 fL (7.4-10.4); Monocytes # 0.7 10^3/uL (0.2-0.9); Monocytes % 6.9 %; Neutrophils # 8.15 10^3/uL (1.8-7.7); Nucleated Red Blood Cells % 0 %; Platelet Count 183 10^3/cmm (130-400); Red Blood Count 3.88 10^6/uL (4.1-5.3); Red Cell Distribution Width 12.8 % (12.1-15.1); White Blood Count 9.8 10^3/uL (4.0-10.0)
[2020-03-13] MEDS: ipratropium-albuterol 3 mL Neb INHALATION ×2 (09:12→23:40)
[2020-03-13] MEDS: memantine 5 mg tablet 10 MG PO (10:04)
[2020-03-13] MEDS: donepezil 5 MG Tablet 10 MG PO (10:09)
[2020-03-13] MEDS: benzonatate 100 mg Capsule PO ×2 (10:09→16:11)
[2020-03-13] MEDS: sennosides-docusate Tablet 1 TAB PO (10:09)
[2020-03-13] MEDS: trazodone 50 mg Tablet 25 MG PO (10:09)
[2020-03-13] MEDS: zinc gluconate 50 mg Tablet PO (10:09)
[2020-03-13] MEDS: citalopram 20 mg Tablet PO (10:10)
[2020-03-13] MEDS: erythromycin Op Oint 3.5 gm Tube 1 APPLIC EYE-BOTH ×2 (10:10→19:27)
[2020-03-13] MEDS: aspirin 81 mg Chew Tablet PO (10:10)
[2020-03-13] MEDS: nystatin powder 15 gm Btl 1 APPLIC TOPICAL ×2 (10:10→19:27)
--- NOTE | 2020-03-13 10:23 | PC.NURSE ---
Rcvd verbal order from Dr Richardson for vancomycin pharmacy to dose, MRSA nasal swab, and clear liquid diet if patient able to swallow. Patient was able to swallow water and pudding with meds with no problem. patient's oxygen drops in upper 80s with coughing. appeals writer entered orders as requested.
--- NOTE | 2020-03-13 11:18 | P.PN_ITS ---
Subjective Subjective: Interval history: In the last 24 h Patient was in A.fib with RVR.He was started on amidoarone drip after 150 cc bolus amiodarone.He is also spiking Temp. For which we have changed his zozyn to imipenam and have started him on azithromycin. Medications: Reviewed: Yes Vitals/I&O/Wt Last Vital Signs Temp 99.2 F 03/13/20 07:52 Pulse 94 03/13/20 09:13 Resp 18 03/13/20 09:13 BP 114/74 03/13/20 07:52 Pulse Ox 97 03/13/20 09:13 03/12/20 03/13/20 03/13/20 22:59 06:59 14:59 Intake Total 50 / 1450 1050 / 2500 Output Total 150 / 150 450 / 600 Balance -100 / 1300 600 / 1900 Weight last 48 hrs Weight 104.326 kg Physical Exam Const: COMMON NORMALS: patient oriented x3 HENMT: COMMON NORMALS: normocephalic, atraumatic, hearing grossly normal bilaterally and external ears normal HEAD & SCALP: normocephalic and a traumatic EXTERNAL EAR: Yes external ears normal Eye: COMMON NORMALS: no scleral icterus GENERAL EYE: appearance normal, both eyes and all related structures Chest: COMMONS NORMALS: normal inspection of the chest and normal palpation of entire chest wall CHEST: Yes Symmetrical chest wall rise Resp: COMMON NORMALS: normal respiratory effort, No retractions, No use of accessory muscles and clear to auscultation bilaterally EFFORT & INSPECTION: Yes symmetric chest movement AUSCULTATION: clear to auscultation bilaterally Cardio: COMMON NORMALS: regular rate, regular rhythm, S1 normal heart sound present, S2 normal heart sound present, No gallops present (Cardio), No murmurs present (Cardio), No rub (Cardio) and Peripheral pulses 2+ throughout RATE: regular rate RHYTHM: regular rhythm HEART SOUNDS: S1 normal heart sound present and S2 normal heart sound present PERIPHERAL PULSES: Peripheral pulses 2+ throughout GI: COMMON NORMALS: Normal to inspection, nondistended, normoactive bowel sounds present, Soft to palpation, non-tender, No hepatosplenomegaly present and no masses AUSCULTATION: Yes normoactive bowel sounds PALPATION: Yes Soft to palpation and Yes No hepatosplenomegaly present RECTAL EXAM: Yes deferred Extremity: COMMON NORMALS: no clubbing, cyanosis or edema and no pedal edema Neuro: COMMON NORMALS: patient oriented x3 Urinary Catheter Management^: Lennon: Cath Placed During This Visit: yes Reason for Continuing Indwelling Catheter: Accurate Measurement of Urinary Output in Critically Ill Patients Urinary Catheter Date of Insertion: 03/12/20 Urinary Catheter Time of Insertion: 11:53 Data : 03/13/20 04:34 03/13/20 04:34 Micro: Microbiology 03/12/20 11:35 Blood Culture - Preliminary Blood SPECIMEN COLLECTED A&P Assessment and plan (1) Septic shock: -noted to be tachycardic, hypotensive, tachypneic, hypoxic, febrile, with clinical evidence of infection (UTI), leukocytosis, and BERNARD -so far has received 3 L NS boluses with noted improvement in hemodynamic status; will continue IV fluid hydration -Currently on BiPAP support wean as tolerated, monitor respiratory status, supplemental oxygen as needed -Continue to monitor vital signs closely -Telemetry monitoring -Mild leukocytosis, lactic acid within normal limits, currently febrile, T-max of 101.9F -UA with noted evidence of infection -Lennon catheter placed in ER -f/u blood and urine cx -CXR unremarkable -just recovered from COVID-19 infection; tested negative at [facility] following completion of quarantine period -received dose of Vanc, Zosyn; continue Zosyn for now -antiemetics, antipyretics as needed Status: Acute (2) Acute cystitis: -UA with noted evidence of infection -Lennon catheter placed in ER -f/u urine cx -f/u blood cx -continue Zosyn Status: Acute Qualifiers: Hematuria presence: without hematuria Qualified Code(s): N30.00 - Acute cystitis without hematuria (3) Dehydration: -clinically appears to be dehydrated, currently with decreased responsiveness so limited PO intake -continue IVF hydration -noted acute renal impairment -monitor vital signs Status: Acute (4) Acute kidney injury: -secondary to dehydration and sepsis -monitor renal function, avoid nephrotoxins, renally dose meds -IVF hydration -has Lennon catheter in place, monitor urine output Status: Acute (5) CVA (cerebral vascular accident): -known prior hx of CVA -resume ASA when PO appropriate Status: Chronic Qualifiers: CVA mechanism: unspecified Qualified Code(s): I63.9 - Cerebral infarction, unspecified (6) Dementia: -strict fall, aspiration precautions -resume meds when PO appropriate Status: Chronic Qualifiers: Dementia behavioral disturbance: with behavioral disturbance Dementia type: unspecified type Qualified Code(s): F03.91 - Unspecified dementia with behavioral disturbance (7) COPD (chronic obstructive pulmonary disease): -no acute exacerbation currently -not oxygen dependent at baseline Status: Chronic Qualifiers: COPD type: unspecified COPD Qualified Code(s): J44.9 - Chronic obstruc tive pulmonary disease, unspecified (8) HTN (hypertension): -hypotensive, hold BP meds -monitor vital signs Status: Chronic Qualifiers: Hypertension type: essential hypertension Qualified Code(s): I10 - Essential (primary) hypertension (9) Obstructive sleep apnea: Status: Chronic (10) Hyperlipidemia: Status: Chronic Qualifiers: Hyperlipidemia type: unspecified Qualified Code(s): E78.5 - Hyperlipidemia, unspecified Additional A&P Information -Advanced age -bilateral bacterial conjunctivitis; start on erythromycin ointment, warm compresses -inguinal intertrigo; nystatin powder, keep skin folds clean and dry -hx of prostate cancer s/p radiation treatment, on androgen deprivation therapy -recent COVID-19 infection, just completed quarantine period, tested negative at [facility] at the end of her quarantine -NPO for now pending improvement in mental status -GI ppx with famotidine -DVT ppx with lovenox -Dispo: return to [facility] -Code status: DNR/DNI; paperwork in chart Attestations Medical Necessity Statement*: Patient needs to be in hospital for the [facility] of severe sepsis Coding Level of Care Code Acute Locomotive Engineer Electric for [facility] Fwd Diagnoses Septic shock A41.9; R65.21 Acute cystitis N30.00 Hematuria presence: without hematuria Dehydration E86.0 Acute kidney injury N17.9 CVA (cerebral vascular accident) I63.9 CVA mechanism: unspecified Dementia F03.91 Dementia behavioral disturbance: with behavioral disturbance Dementia type: unspecified type COPD (chronic obstructive pulmonary disease) J44.9 COPD type: unspecified COPD HTN (hypertension) I10 Hypertension type: essential hypertension Obstructive sleep apnea G47.33 Hyperlipidemia E78.5 Hyperlipidemia type: unspecified
--- NOTE | 2020-03-13 13:51 | PC.NURSE ---
Notified Dr Richardson that patient's HR is 185 and it was 80-90 earlier today. Blood pressure is 103/70.
--- NOTE | 2020-03-13 14:03 | ECG_ITS ---
[facility] Test Date: 2020-03-13 Pat Name: Jose Mancuso Department: Room: 107 Gender: Male Industrial Relations Commissioner: : [id number] Requested By: Candido Richardson Order Number: [id number] Ames MD: Gloria Zavala M.D. Measurements Intervals [place] Rate: 184 P: NV: -1 QRS: 269 QRSD: 142 T: 26 QT: 265 QTc: 464 Interpretive Statements WCT -POSSIBLY SUPRAVENTRICULAR TACHYCARDIA WITH UNDERLYING BUNDLE BRANCH BLOCK MARKED RIGHT AXIS DEVIATION [QRS AXIS > 100] RIGHT BUNDLE BRANCH BLOCK ANTEROSEPTL MYOCARDIAL INFARCTION, PROBABLY OLD Compared to ECG 03/12/2020 11:40:57 Sinus tachycardia no longer present Myocardial infarct finding still present Electronically Signed On 03-13-2020 23:46:33 AUTO SERVICE STATION ATTENDANT by Gloria Zavala M.D. [id number]
--- NOTE | 2020-03-13 14:35 | PC.NURSE ---
Rcvd verbal orders from Dr Richardson to administer 150Ml NS bolus, Metoprolol 5ML IVP, Amiodarone 150mg IVP, and 6mg Adenosine. Patient was monitored on the ZOLL by Dr Richardson. Patient will be transferred CSU for constant monitoring and Amiodarone drip per Dr Richardson. Patient's current blood pressure is 103/67.
[2020-03-13 14:47] LABS: SARS Covid-2 Antigen Negative (Negative)
--- NOTE | 2020-03-13 14:57 | PC.NURSE ---
Patient taken to C[facility] room 107. Report given at bedside to Debbie Iqbal
--- NOTE | 2020-03-13 15:18 | PC.NURSE ---
patient transferred from [facility] due to irregular heart rhythm and rate patient stable upon transfer patient however has rapid short breathing skin intact patient alert to name. reporting nurse states this is baseline mental status. patient noted in A-fib Dr ayala at bedside to discuss plan of care with this nurse. instructions to start amio gtt as ordered
[2020-03-13 15:31] LABS: Magnesium 2.2 mg/dL (1.7-2.3)
[2020-03-13] MEDS: enoxaparin 40 mg/0.4 mL Syringe SUBCUT (16:26)
--- NOTE | 2020-03-13 16:45 | PC.NURSE ---
Notified Dr ayala of patient temp spike to 102.2 instructions to obtain blood cultures, urine analysis and sputum culture also instructions to start IV fluid d5 1/2 ns at 100mls hour and make patient NPO
[2020-03-13] MEDS: dextrose 5%-sod chloride 0.45% 1,000 ML 100 ML IV (17:56)
[2020-03-13 18:56] LABS: Blood Urine 3+ (Negative); Glucose Urine UA Norm (Normal); Ketones Urine Negative (Negative); Protein Urine 1+ (Negative); Specific Gravity, Urine 1.015 (1.005-1.030); Urine Appearance Hazy (CLEAR); Urine Color Yellow (Yellow); pH Urine 5 (5-7)
[2020-03-13 18:57] LABS: Add Urine Microscopic? YES; Bilirubin Urine Neg (Negative); Leukocyte Esterase Urine 2+ (Negative); Nitrate Urine Negative (Negative); Urobilinogen Urine Norm (Negative)
[2020-03-13 19:20] LABS: Add Urine Culture? Yes; Amorphous Sediment Urine 2+ /hpf; Bacteria Urine 3+ /hpf; Fine Granular Casts Urine 0-4 /lpf; Hyaline Casts Urine 0-4 /lpf; RBC Urine 15-25 /hpf (0-2); Squamous Epithelial Cell Urine 0-4 /hpf (0-5); WBC Urine 55-80 /hpf (0-5)
[2020-03-13] MEDS: azithromycin 500 MG in sodium chloride 0.9% 250 ML 250 MG IV (19:27)
--- NOTE | 2020-03-13 19:43 | PC.NURSE ---
Rounding: Patient is resting in bed. vitals are stable at this time.
--- NOTE | 2020-03-13 23:30 | PC.NURSE ---
Patients fluids paused while staff attempted to get a IV. IV fluids resumed once Patent IV obtained.
[2020-03-14] VITALS (11 sets, daily range): BP systolic 111–145; BP diastolic 72–92; PULSE 64–81; RESP 14–28; TEMP 36.7–37.4; O2SAT 91–97
[2020-03-14] MEDS: famotidine 20 mg/2 mL INJ IVP (04:13)
--- NOTE | 2020-03-14 07:00 | PC.NURSE ---
patient resting in bed. patient turned to side at this time. glaser draining properly. call light within reach.
[2020-03-14] MEDS: citalopram 20 mg Tablet PO (08:37)
[2020-03-14] MEDS: donepezil 5 MG Tablet 10 MG PO (08:37)
[2020-03-14] MEDS: benzonatate 100 mg Capsule PO ×3 (08:37→21:58)
[2020-03-14] MEDS: sennosides-docusate Tablet 1 TAB PO (08:37)
[2020-03-14] MEDS: trazodone 50 mg Tablet 25 MG PO (08:37)
[2020-03-14] MEDS: aspirin 81 mg Chew Tablet PO (08:37)
[2020-03-14] MEDS: memantine 5 mg tablet 10 MG PO ×2 (08:37→17:33)
[2020-03-14] MEDS: erythromycin Op Oint 3.5 gm Tube 1 APPLIC EYE-BOTH ×2 (09:58→17:38)
[2020-03-14] MEDS: nystatin powder 15 gm Btl 1 APPLIC TOPICAL ×2 (09:58→17:40)
[2020-03-14] MEDS: ipratropium-albuterol 3 mL Neb INHALATION ×4 (10:10→21:15)
[2020-03-14] MEDS: zinc gluconate 50 mg Tablet PO (10:42)
[2020-03-14] MEDS: FUROsemide 10 mg/mL SDV 4mL 40 MG IVP (11:42)
[2020-03-14] MEDS: dextrose 5%-sod chloride 0.45% 1,000 ML 100 ML IV ×2 (11:49→11:51)
--- NOTE | 2020-03-14 11:52 | PC.NURSE ---
only one bag of dectrose hung, 0200 was a missed dose from cook night.
[2020-03-14 12:37] LABS: Basophils % 0.4 %; Eosinophils # 0.2 10^3/uL (0.0-0.8); Eosinophils % 2.4 %; Hematocrit 37.9 % (42.0-52.0); Hemoglobin 11.5 g/dL (11.7-16.6); Lymphocytes # 0.7 10^3/uL (0.8-4.8); Lymphocytes % 8.3 %; Mean Corpuscular HGB Conc 30.3 g/dL (30.0-36.0); Mean Corpuscular Hemoglobin 29.6 pg (28.0-34.0); Mean Corpuscular Volume 97.4 fL (80-94); Monocytes # 0.5 10^3/uL (0.2-0.9); Monocytes % 6.8 %; Neutrophils # 6.31 10^3/uL (1.8-7.7); Neutrophils % 80.8 %; Nucleated Red Blood Cells % 0 %; Platelet Count 193 10^3/cmm (130-400); Red Blood Count 3.89 10^6/uL (4.1-5.3); Red Cell Distribution Width 12.4 % (12.1-15.1); White Blood Count 7.8 10^3/uL (4.0-10.0)
[2020-03-14 12:55] LABS: Alanine Aminotransferase 37 U/L (0-41); Albumin Level 2.8 g/dL (3.5-5.2); Alkaline Phosphatase 74 IU/L (40-130); Anion Gap 14.2 (5-19); Aspartate Amino Transferase 28 U/L (0-40); Blood Urea Nitrogen 17 mg/dL (8-23); Calcium 8.4 mg/dL (8.5-10.5); Carbon Dioxide 24 mmol/L (22-29); Chloride 114 mmol/L (98-107); Globulin 3.4 g/dL (1.3-4.6); Glucose 128 mg/dL (65-115); Magnesium 1.9 mg/dL (1.7-2.3); Osmolality Calculated 311 mOsm/kg (285-295); Potassium 3.2 mmol/L (3.5-5.1); Sodium 149 mmol/L (136-145); Total Bilirubin 0.5 mg/dL (0.15-1.2); Total Protein 6.2 g/dL (6.6-8.7)
--- NOTE | 2020-03-14 13:35 | P.PN_ITS ---
Subjective Subjective: Interval history: Patient is more alert today though he is still not at his baseline ( He talk but not always accurate response or conversations,has short term forgetfulness ).U/O : 1800 CC. Vitals and labs have been reviewed. Medications: Reviewed: Yes Vitals/I&O/Wt Last Vital Signs Temp 98.1 F 03/14/20 12:00 Pulse 81 03/14/20 12:00 Resp 23 H 03/14/20 12:00 BP 145/92 03/14/20 12:00 Pulse Ox 91 03/14/20 12:00 03/13/20 03/14/20 03/14/20 22:59 06:59 14:59 Intake Total 1074.358 / 3081.025 986.667 / 4067.692 3.333 / 3.333 Output Total 250 / 550 300 / 850 Balance 824.358 / 2531.025 686.667 / 3217.692 3.333 / 3.333 Weight last 48 hrs Weight 105.233 kg Physical Exam Narrative: EXAM NARRATIVE: Currently AO*0. HENMT: COMMON NORMALS: normocephalic, atraumatic, hearing grossly normal bilaterally and external ears normal HEAD & SCALP: normocephalic and atraumatic EXTERNAL EAR: Yes external ears normal Eye: COMMON NORMALS: no scleral icterus GENERAL EYE: appearance normal, both eyes and all related structures Chest: COMMONS NORMALS: normal inspection of the chest and normal palpation of entire chest wall CHEST: Yes Symmetrical chest wall rise Resp: COMMON NORMALS: normal respiratory effort and No retractions EFFORT & INSPECTION: Yes symmetric chest movement OTHER: Diminished air entry B/L.No wheezing no ronchii.Minimal basal b/l Crackles Cardio: COMMON NORMALS: regular rate, regular rhythm, S1 normal heart sound present, S2 normal heart sound present, No gallops present (Cardio), No murmurs present (Cardio), No rub (Cardio) and Peripheral pulses 2+ throughout RATE: regular rate RHYTHM: regular rhythm HEART SOUNDS: S1 normal heart sound present and S2 normal heart sound present PERIPHERAL PULSES: Peripheral pulses 2+ throughout GI: COMMON NORMALS: Normal to inspection, nondistended, normoactive bowel sounds present, Soft to palpation, non-tender, No hepatosplenomegaly present and no masses AUSCULTATION: Yes normoactive bowel sounds PALPATION: Yes Soft to palpation and Yes No hepatosplenomegaly present RECTAL EXAM: Yes deferred Extremity: COMMON NORMALS: no clubbing, cyanosis or edema and no pedal edema Urinary Catheter Management^: Lennon: Cath Placed During This Visit: yes Reason for Continuing Indwelling Catheter: Accurate Measurement of Urinary Output in Critically Ill Patients Urinary Catheter Date of Insertion: 03/12/20 Urinary Catheter Time of Insertion: 11:53 Data : 03/14/20 12:10 03/14/20 12:10 Micro: Microbiology 03/12/20 11:45 Urine Culture - Final Urine Catheterized Morganella morganii 03/13/20 11:13 MRSA Culture - Final Nose 03/13/20 18:23 Blood Culture - Preliminary Blood SPECIMEN COLLECTED 03/13/20 18:20 Blood Culture - Preliminary Blood SPECIMEN COLLECTED 03/12/20 11:35 Blood Culture - Preliminary Blood NEGATIVE TO DATE A&P Assessment and plan (1) Septic shock: -noted to be tachycardic, hypotensive, tachypneic, hypoxic, febrile, with clinical evidence of infection (UTI), leukocytosis, and BERNARD -so far has received 3 L NS boluses with noted improvement in hemodynamic status; will continue IV fluid hydration -Currently on BiPAP support wean as tolerated, monitor respiratory status, supplemental oxygen as needed -Continue to monitor vital signs closely -Telemetry monitoring -leukocytosis ( Improving ) lactic acid within normal limits, currently febrile -UA with noted evidence of infection -urine cx: Morgenella Morganii ( Sensitive to cefepime ) , will continue vanco/aleida/stop Imipe/ start cefepime ( 02/11 ) -f/u blood culture -CXR unremarkable -just recovered from COVID-19 infection; tested negative at care home following completion of quarantine period -antiemetics, antipyretics as needed Status: Acute (2) Acute cystitis: -UA with noted evidence of infection -Lennon catheter placed in ER Status: Acute Qualifiers: Hematuria presence: without hematuria Qualified Code(s): N30.00 - Acute cystitis without hematuria (3) Dehydration: Status: Acute (4) Acute kidney injury: -secondary to dehydration and sepsis -monitor renal function, avoid nephrotoxins, renally dose meds -IVF hydration -has Lennon catheter in place, monitor urine output Status: Acute (5) CVA (cerebral vascular accident): -known prior hx of CVA -resume ASA when PO appropriate Status: Chronic Qualifiers: CVA mechanism: unspecified Qualified Code(s): I63.9 - Cerebral infarction, unspecified (6) Dementia: -strict fall, aspiration precautions -resume meds when PO appropriate Status: Chronic Qualifiers: Dementia behavioral disturbance: with behavioral disturbance Dementia type: unspecified type Qualified Code(s): F03.91 - Unspecified dementia with behavioral disturbance (7) COPD (chronic obstructive pulmonary disease): -no acute exacerbation currently -not oxygen dependent at baseline Status: Chronic Qualifiers: COPD type: unspecified COPD Qualified Code(s): J44.9 - Chronic obstructive pulmonary disease, unspecified (8) HTN (hypertension): -hypotensive, hold BP meds -monitor vital signs Status: Chronic Qualifiers: Hypertension type: essential hypertension Qualified Code(s): I10 - Essential (primary) hypertension (9) Obstructive sleep apnea: Status: Chronic (10) Hyperlipidemia: Status: Chronic Qualifiers: Hyperlipidemia type: unspecified Qualified Code(s): E78.5 - Hyperlipidemia, unspecified Additional A&P Information -Advanced age -bilateral bacterial conjunctivitis; start on erythromycin ointment, warm compresses -inguinal intertrigo; nystatin powder, keep skin folds clean and dry -hx of prostate cancer s/p radiation treatment, on androgen deprivation therapy -recent COVID-19 infection, just completed quarantine period, tested negative at care home at the end of her quarantine -NPO for now pending improvement in mental status -GI ppx with famotidine -DVT ppx with lovenox -Dispo: return to [facility] -Code status: DNR/DNI; paperwork in chart Attestations Medical Necessity Statement*: Patient needs to be in hospital for the management of urosepsis Coding Level of Care Code 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
[2020-03-14] MEDS: famotidine 20 mg Tablet PO (15:10)
[2020-03-14] MEDS: enoxaparin 40 mg/0.4 mL Syringe SUBCUT (15:10)
[2020-03-14] MEDS: azithromycin 500 MG in sodium chloride 0.9% 250 ML 250 MG IV (17:38)
--- NOTE | 2020-03-14 19:17 | PC.NURSE ---
ASSUMED CARE OF PT. DENIES PAIN. WILL CONTINUE TO MONITOR.
[2020-03-14] MEDS: cefepime 1,000 MG in sodium chloride 0.9% (plus) 50 ML 100 MG IV (21:58)
[2020-03-14 22:35] LABS: Vancomycin Trough 13.7 ug/mL (10-15)
[2020-03-15] VITALS (12 sets, daily range): BP systolic 101–125; BP diastolic 63–77; PULSE 57–90; RESP 16–28; TEMP 35.6–36.6; O2SAT 91–95; BMI 33.5
[2020-03-15] MEDS: dextrose 5%-sod chloride 0.45% 1,000 ML 100 ML IV ×2 (00:38→09:29)
[2020-03-15] MEDS: famotidine 20 mg Tablet PO ×2 (04:57→15:26)
[2020-03-15 05:39] LABS: Basophils % 0.3 %; Eosinophils # 0.2 10^3/uL (0.0-0.8); Eosinophils % 3.8 %; Hematocrit 34.2 % (42.0-52.0); Hemoglobin 10.4 g/dL (11.7-16.6); Lymphocytes # 0.6 10^3/uL (0.8-4.8); Lymphocytes % 9.5 %; Mean Corpuscular HGB Conc 30.4 g/dL (30.0-36.0); Mean Corpuscular Hemoglobin 30.1 pg (28.0-34.0); Mean Corpuscular Volume 98.8 fL (80-94); Monocytes # 0.5 10^3/uL (0.2-0.9); Monocytes % 7.1 %; Neutrophils # 4.92 10^3/uL (1.8-7.7); Neutrophils % 78.2 %; Nucleated Red Blood Cells % 0 %; Platelet Count 182 10^3/cmm (130-400); Red Blood Count 3.46 10^6/uL (4.1-5.3); Red Cell Distribution Width 12.3 % (12.1-15.1); White Blood Count 6.3 10^3/uL (4.0-10.0)
[2020-03-15 06:19] LABS: Alanine Aminotransferase 39 U/L (0-41); Albumin Level 2.5 g/dL (3.5-5.2); Alkaline Phosphatase 69 IU/L (40-130); Anion Gap 10.9 (5-19); Aspartate Amino Transferase 32 U/L (0-40); Blood Urea Nitrogen 12 mg/dL (8-23); Calcium 8.1 mg/dL (8.5-10.5); Carbon Dioxide 27 mmol/L (22-29); Chloride 113 mmol/L (98-107); Glucose 128 mg/dL (65-115); Magnesium 1.8 mg/dL (1.7-2.3); Osmolality Calculated 307 mOsm/kg (285-295); Sodium 148 mmol/L (136-145); Total Bilirubin 0.4 mg/dL (0.15-1.2); Total Protein 5.5 g/dL (6.6-8.7)
[2020-03-15 06:31] LABS: Potassium 2.9 mmol/L (3.5-5.1)
[2020-03-15] MEDS: ipratropium-albuterol 3 mL Neb INHALATION ×3 (08:51→22:11)
[2020-03-15] MEDS: donepezil 5 MG Tablet 10 MG PO (09:22)
[2020-03-15] MEDS: citalopram 20 mg Tablet PO (09:22)
[2020-03-15] MEDS: sennosides-docusate Tablet 1 TAB PO (09:22)
[2020-03-15] MEDS: benzonatate 100 mg Capsule PO ×3 (09:22→20:01)
[2020-03-15] MEDS: memantine 5 mg tablet 10 MG PO ×2 (09:22→17:55)
[2020-03-15] MEDS: zinc gluconate 50 mg Tablet PO (09:23)
[2020-03-15] MEDS: trazodone 50 mg Tablet 25 MG PO (09:23)
[2020-03-15] MEDS: cefepime 1,000 MG in sodium chloride 0.9% (plus) 50 ML 100 MG IV ×2 (09:23→20:01)
[2020-03-15] MEDS: aspirin 81 mg Chew Tablet PO (09:23)
[2020-03-15] MEDS: nystatin powder 15 gm Btl 1 APPLIC TOPICAL ×2 (09:23→17:54)
[2020-03-15] MEDS: erythromycin Op Oint 3.5 gm Tube 1 APPLIC EYE-BOTH ×2 (09:24→17:54)
--- NOTE | 2020-03-15 10:34 | PM.PN ---
Subjective Subjective: Interval history: Patient is more alert and awake today,though still not to his baseline. he is having few runs of NSVT. Has remained Afebrile in the last 24 h. Good urine output: (1600 cc ) Medications: Reviewed: Yes Vitals/I&O/Wt Last Vital Signs Temp 96.1 F L 03/15/20 07:24 Pulse 68 03/15/20 09:09 Resp 22 H 03/15/20 08:53 BP 125/77 03/15/20 07:24 Pulse Ox 93 03/15/20 08:53 03/14/20 03/15/20 03/15/20 22:59 06:59 14:59 Intake Total 1666.975 / 1770.308 310 / 2080.308 1118.55 / 1118.55 Output Total 1750 / 1750 Balance -83.025 / 20.308 310 / 111.262 0289.55 / 1118.55 Weight last 48 hrs Weight 103.011 kg Physical Exam Narrative: EXAM NARRATIVE: Currently AO*0. Const: COMMON NORMALS: patient oriented x3 HENMT: COMMON NORMALS: normocephalic, atraumatic, hearing grossly normal bilaterally and external ears normal HEAD & SCALP: normocephalic and atraumatic EXTERNAL EAR: Yes external ears normal Eye: COMMON NORMALS: no scleral icterus GENERAL EYE: appearance normal, both eyes and all related structures Chest: COMMONS NORMALS: normal inspection of the chest and normal palpation of entire chest wall CHEST: Yes Symmetrical chest wall rise Resp: COMMON NORMALS: normal respiratory effort, No retractions, No use of accessory muscles and clear to auscultation bilaterally EFFORT & INSPECTION: Yes symmetric chest movement AUSCULTATION: clear to auscultation bilaterally OTHER: Diminished air entry B/L.No wheezing no ronchii.Minimal basal b/l Crackles Cardio: COMMON NORMALS: regular rate, regular rhythm, S1 normal heart sound present, S2 normal heart sound present, No gallops present (Cardio), No murmurs present (Cardio), No rub (Cardio) and Peripheral pulses 2+ throughout RATE: regular rate RHYTHM: regular rhythm HEART SOUNDS: S1 normal heart sound present and S2 normal heart sound present PERIPHERAL PULSES: Peripheral pulses 2+ throughout GI: COMMON NORMALS: Normal to inspection, nondistended, normoactive bowel sounds present, Soft to palpation, non-tender, No hepatosplenomegaly present and no masses AUSCULTATION: Yes normoactive bowel sounds PALPATION: Yes Soft to palpation and Yes No hepatosplenomegaly present RECTAL EXAM: Yes deferred Extremity: COMMON NORMALS: no clubbing, cyanosis or edema and no pedal edema Neuro: COMMON NORMALS: patient oriented x3 Urinary Catheter Management^: Lennon: Cath Placed During This Visit: yes Reason for Continuing Indwelling Catheter: Accurate Measurement of Urinary Output in Critically Ill Patients Urinary Catheter Date of Insertion: 03/12/20 Urinary Catheter Time of Insertion: 11:53 Data : 03/15/20 04:45 03/15/20 04:45 Micro: Microbiology 03/13/20 18:45 Urine Culture - Preliminary Urine,Clean Catch 03/13/20 18:23 Blood Culture - Preliminary Blood NEGATIVE TO DATE 03/13/20 18:20 Blood Culture - Preliminary Blood NEGATIVE TO DATE 03/12/20 11:45 Urine Culture - Final Urine Catheterized Morganella morganii 03/13/20 11:13 MRSA Culture - Final Nose A&P Assessment and plan (1) Septic shock: -noted to be tachycardic, hypotensive, tachypneic, hypoxic, febrile, with clinical evidence of infection (UTI), leukocytosis, and BERNARD -so far has received 3 L NS boluses with noted improvement in hemodynamic status; will continue IV fluid hydration -Currently on BiPAP support wean as tolerated, monitor respiratory status, supplemental oxygen as needed -Continue to monitor vital signs closely -Telemetry monitoring -leukocytosis ( Improving ) lactic acid within normal limits, currently febrile -UA with noted evidence of infection -urine cx: Morgenella Morganii ( Sensitive to cefepime ) , will continue vanco/aleida/stop Imipe/ start cefepime ( 02/11 ) -Repeat blood culture : No Growth -Repeat Urine Culture:Pending -CXR unremarkable -just recovered from COVID-19 infection; tested negative at half-way following completion of quarantine period Status: Acute (2) A-fib: Patient was in A.FIB with RVR. Initially started on Amiodarone drip.Has been switched to 400 mg amiodarone po q12 h daily. Currently rate is well controlled . Status: Acute (3) Acute cystitis: -UA with noted evidence of infection -Lennon catheter placed in ER Status: Acute Qualifiers: Hematuria presence: without hematuria Qualified Code(s): N30.00 - Acute cystitis without hematuria (4) Dehydration: Status: Acute (5) Acute kidney injury: -secondary to dehydration and sepsis -monitor renal function, avoid nephrotoxins, renally dose meds -IVF hydration -has Lennon catheter in place, monitor urine output Status: Acute (6) CVA (cerebral vascular accident): -known prior hx of CVA -resume ASA when PO appropriate Status: Chronic Qualifiers: CVA mechanism: unspecified Qualified Code(s): I63.9 - Cerebral infarction, unspecified (7) Dementia: -strict fall, aspiration precautions -resume meds when PO appropriate Status: Chronic Qualifiers: Dementia behavioral disturbance: with behavioral disturbance Dementia type: unspecified type Qualified Code(s): F03.91 - Unspecified dementia with behavioral disturbance (8) COPD (chronic obstructive pulmonary disease): -no acute exacerbation currently -not oxygen dependent at baseline Status: Chronic Qualifiers: COPD type: unspecified COPD Qualified Code(s): J44.9 - Chronic obstructive pulmonary disease, unspecified (9) HTN (hypertension): -hypotensive, hold BP meds -monitor vital signs Status: Chronic Qualifiers: Hypertension type: essential hypertension Qualified Code(s): I10 - Essential (primary) hypertension (10) Obstructive sleep apnea: Status: Chronic (11) Hyperlipidemia: Status: Chronic Qualifiers: Hyperlipidemia type: unspecified Qualified Code(s): E78.5 - Hyperlipidemia, unspecified Additional A&P Information -Advanced age -bilateral bacterial conjunctivitis; start on erythromycin ointment, warm compresses -inguinal intertrigo; nystatin powder, keep skin folds clean and dry -hx of prostate cancer s/p radiation treatment, on androgen deprivation therapy -recent COVID-19 infection, just completed quarantine period, tested negative at half-way at the end of her quarantine -NPO for now pending improvement in mental status -GI ppx with famotidine -DVT ppx with lovenox -Dispo: return to [facility] -Code status: DNR/DNI; paperwork in chart Attestations Medical Necessity Statement*: Patient needs to be in hospital for the management of sepsis Coding Level of Care Code 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
--- NOTE | 2020-03-15 10:40 | DCPLANNER ---
IMM completed 03/15/2020 @ 1016. Copy of rights given to pt.
--- NOTE | 2020-03-15 10:49 | PC.NURSE ---
lasix administered late due to dr notification of potassium being 2.9. dr order krider and give lasix.
[2020-03-15] MEDS: amiodarone 200 mg Tablet PO ×2 (11:00→17:55)
[2020-03-15] MEDS: potassium chloride premix 100 ML 25 MEQ IV (11:00)
[2020-03-15] MEDS: lidocaine 1% INJ 20 mL 5 ML IV (11:01)
[2020-03-15] MEDS: FUROsemide 10 mg/mL SDV 4mL 40 MG IVP (11:02)
[2020-03-15] MEDS: enoxaparin 40 mg/0.4 mL Syringe SUBCUT (15:26)
[2020-03-15] MEDS: lidocaine 1% 5 ML in potassium chloride premix 100 ML 50 ML IV (17:00)
--- NOTE | 2020-03-15 18:46 | PC.PT ---
PT evaluation reattempted in p.m., patient still with significant altered mental status, unable to follow any conversation, although patient is known to me from many years; and inappropriate for PT valuation until this improves
[2020-03-15] MEDS: azithromycin 500 MG in sodium chloride 0.9% 250 ML 250 MG IV (18:47)
--- NOTE | 2020-03-15 18:58 | PC.NURSE ---
Patient does not respond to be when asking questions. He has not verbally responded to me. Unable to fully assess orientation status. 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
--- NOTE | 2020-03-15 20:08 | PC.NURSE ---
Patient was able to drink water upon command and when asking do you want more patient shook his head up and down.
[2020-03-16] VITALS (13 sets, daily range): BP systolic 111–146; BP diastolic 65–92; PULSE 65–95; RESP 16–27; TEMP 36.2–36.9; O2SAT 91–98
--- NOTE | 2020-03-16 00:42 | PC.NURSE ---
Patient has been responding verbally to yes and no questions.
[2020-03-16] MEDS: dextrose 5%-sod chloride 0.45% 1,000 ML 100 ML IV ×2 (02:04→11:20)
[2020-03-16] MEDS: famotidine 20 mg Tablet PO ×2 (03:09→16:47)
[2020-03-16 05:43] LABS: Basophils % 0.3 %; Eosinophils # 0.3 10^3/uL (0.0-0.8); Eosinophils % 3.6 %; Hematocrit 33.2 % (42.0-52.0); Hemoglobin 10.3 g/dL (11.7-16.6); Lymphocytes # 0.7 10^3/uL (0.8-4.8); Lymphocytes % 10.2 %; Mean Corpuscular Hemoglobin 29.9 pg (28.0-34.0); Mean Corpuscular Volume 96.5 fL (80-94); Monocytes # 0.5 10^3/uL (0.2-0.9); Neutrophils # 5.39 10^3/uL (1.8-7.7); Neutrophils % 77.3 %; Nucleated Red Blood Cells % 0 %; Platelet Count 189 10^3/cmm (130-400); Red Blood Count 3.44 10^6/uL (4.1-5.3); Red Cell Distribution Width 12.1 % (12.1-15.1)
[2020-03-16 05:58] LABS: Alanine Aminotransferase 42 U/L (0-41); Albumin Level 2.5 g/dL (3.5-5.2); Alkaline Phosphatase 64 IU/L (40-130); Anion Gap 11.2 (5-19); Aspartate Amino Transferase 32 U/L (0-40); Blood Urea Nitrogen 13 mg/dL (8-23); Carbon Dioxide 26 mmol/L (22-29); Chloride 112 mmol/L (98-107); Globulin 2.8 g/dL (1.3-4.6); Glucose 109 mg/dL (65-115); Magnesium 1.7 mg/dL (1.7-2.3); Osmolality Calculated 303 mOsm/kg (285-295); Potassium 3.2 mmol/L (3.5-5.1); Sodium 146 mmol/L (136-145); Total Bilirubin 0.3 mg/dL (0.15-1.2); Total Protein 5.3 g/dL (6.6-8.7)
[2020-03-16] MEDS: ipratropium-albuterol 3 mL Neb INHALATION ×3 (08:19→21:19)
[2020-03-16] MEDS: potassium chloride premix 100 ML 50 MEQ IV (09:39)
[2020-03-16] MEDS: sennosides-docusate Tablet 1 TAB PO (09:40)
[2020-03-16] MEDS: amiodarone 200 mg Tablet PO ×2 (09:40→17:54)
[2020-03-16] MEDS: aspirin 81 mg Chew Tablet PO (09:40)
[2020-03-16] MEDS: memantine 5 mg tablet 10 MG PO ×2 (09:40→17:54)
[2020-03-16] MEDS: zinc gluconate 50 mg Tablet PO (09:40)
[2020-03-16] MEDS: cefepime 1,000 MG in sodium chloride 0.9% (plus) 50 ML 100 MG IV ×2 (09:41→19:11)
[2020-03-16] MEDS: nystatin powder 15 gm Btl 1 APPLIC TOPICAL ×2 (09:41→17:55)
[2020-03-16] MEDS: benzonatate 100 mg Capsule PO ×3 (09:41→19:12)
[2020-03-16] MEDS: trazodone 50 mg Tablet 25 MG PO (09:41)
[2020-03-16] MEDS: citalopram 20 mg Tablet PO (09:41)
[2020-03-16] MEDS: donepezil 5 MG Tablet 10 MG PO (09:41)
[2020-03-16] MEDS: erythromycin Op Oint 3.5 gm Tube 1 APPLIC EYE-BOTH ×2 (09:42→17:55)
[2020-03-16] MEDS: FUROsemide 10 mg/mL SDV 4mL 40 MG IVP (09:59)
--- NOTE | 2020-03-16 12:12 | PM.PN ---
Subjective Subjective: Interval history: Patient continues to have poor verbal response,answer simple questions, tolerating diet well,good urine output has remained a.febrile. Other vitals and labs are stable. Medications: Reviewed: Yes Vitals/I&O/Wt Last Vital Signs Temp 98.1 F 03/16/20 11:12 Pulse 78 03/16/20 11:12 Resp 16 03/16/20 11:12 BP 137/92 03/16/20 11:12 Pulse Ox 97 03/16/20 11:12 03/15/20 03/16/20 03/16/20 22:59 06:59 14:59 Intake Total 1520 / 2808.55 400 / 3208.55 986.667 / 986.667 Output Total 1600 / 1600 350 / 1950 1400 / 1400 Balance -80 / 1208.55 50 / 1258.55 -413.333 / -413.333 Weight last 48 hrs Weight 105.324 kg Weight 103.011 kg Physical Exam Narrative: EXAM NARRATIVE: Currently AO*0. HENMT: COMMON NORMALS: normocephalic and atraumatic HEAD & SCALP: normocephalic and atraumatic Eye: COMMON NORMALS: no scleral icterus GENERAL EYE: appearance normal, both eyes and all related structures Chest: COMMONS NORMALS: normal inspection of the chest and normal palpation of entire chest wall CHEST: Yes Symmetrical chest wall rise Resp: COMMON NORMALS: normal respiratory effort, No retractions, No use of accessory muscles and clear to auscultation bilaterally EFFORT & INSPECTION: Yes symmetric chest movement AUSCULTATION: clear to auscultation bilaterally Cardio: COMMON NORMALS: regular rate, regular rhythm, S1 normal heart sound present, S2 normal heart sound present, No gallops present (Cardio), No murmurs present (Cardio), No rub (Cardio) and Peripheral pulses 2+ throughout RATE: regular rate RHYTHM: regular rhythm HEART SOUNDS: S1 normal heart sound present and S2 normal heart sound present PERIPHERAL PULSES: Peripheral pulses 2+ throughout GI: COMMON NORMALS: Normal to inspection, nondistended, normoactive bowel sounds present, Soft to palpation, non-tender, No hepatosplenomegaly present and no masses AUSCULTATION: Yes normoactive bowel sounds PALPATION: Yes Soft to palpation and Yes No hepatosplenomegaly present RECTAL EXAM: Yes deferred Extremity: COMMON NORMALS: no clubbing, cyanosis or edema and no pedal edema Urinary Catheter Management^: Lennon: Cath Placed During This Visit: yes Reason for Continuing Indwelling Catheter: Accurate Measurement of Urinary Output in Critically Ill Patients Urinary Catheter Date of Insertion: 03/12/20 Urinary Catheter Time of Insertion: 11:53 Data : 03/16/20 04:38 03/16/20 04:38 Micro: Microbiology 03/13/20 18:45 Urine Culture - Final Urine,Clean Catch A&P Assessment and plan (1) Septic shock: -noted to be tachycardic, hypotensive, tachypneic, hypoxic, febrile, with clinical evidence of infection (UTI), leukocytosis, and BERNARD -so far has received 3 L NS boluses with noted improvement in hemodynamic status; will continue IV fluid hydration -Currently on BiPAP support wean as tolerated, monitor respiratory status, supplemental oxygen as needed -Continue to monitor vital signs closely -Telemetry monitoring lactic acid within normal limits, currently febrile -UA with noted evidence of infection -urine cx: Morgenella Morganii ( Sensitive to cefepime ) , will continue vanco/aleida/stop Imipe/ start cefepime ( 02/11 ) -Repeat blood culture : No Growth -Repeat Urine Culture:Prelim no Growth -CXR unremarkable -just recovered from COVID-19 infection; tested negative at shelter following completion of quarantine period Status: Acute (2) A-fib: Patient was in A.FIB with RVR. Initially started on Amiodarone drip.Has been switched to 400 mg amiodarone po q12 h daily. Currently rate is well controlled . Status: Acute (3) Acute cystitis: -UA with noted evidence of infection -Lennon catheter placed in ER Status: Acute Qualifiers: Hematuria presence: without hematuria Qualified Code(s): N30.00 - Acute cystitis without hematuria (4) Dehydration: Status: Acute (5) Acute kidney injury: -secondary to dehydration and sepsis :Resolved -monitor renal function, avoid nephrotoxins, renally dose meds -IVF hydration -has Lennon catheter in place, monitor urine output Status: Acute (6) CVA (cerebral vascular accident): -known prior hx of CVA -resume ASA when PO appropriate Status: Chronic Qualifiers: CVA mechanism: unspecified Qualified Code(s): I63.9 - Cerebral infarction, unspecified (7) Dementia: -strict fall, aspiration precautions -resume meds when PO appropriate Status: Chronic Qualifiers: Dementia behavioral disturbance: with behavioral disturbance Dementia type: unspecified type Qualified Code(s): F03.91 - Unspecified dementia with behavioral disturbance (8) COPD (chronic obstructive pulmonary disease): -no acute exacerbation currently -not oxygen dependent at baseline Status: Chronic Qualifiers: COPD type: unspecified COPD Qualified Code(s): J44.9 - Chronic obstructive pulmonary disease, unspecified (9) HTN (hypertension): -Currently B/P Well controlled -monitor vital signs Status: Chronic Qualifiers: Hypertension type: essential hypertension Qualified Code(s): I10 - Essential (primary) hypertension (10) Obstructive sleep apnea: Status: Chronic (11) Hyperlipidemia: Status: Chronic Qualifiers: Hyperlipidemia type: unspecified Qualified Code(s): E78.5 - Hyperlipidemia, unspecified Additional A&P Information -Advanced age -bilateral bacterial conjunctivitis; start on erythromycin ointment, warm compresses -inguinal intertrigo; nystatin powder, keep skin folds clean and dry -hx of prostate cancer s/p radiation treatment, on androgen deprivation therapy -recent COVID-19 infection, just completed quarantine period, tested negative at shelter at the end of her quarantine -NPO for now pending improvement in mental status -GI ppx with famotidine -DVT ppx with lovenox -Dispo: return to [facility] -Code status: DNR/DNI; paperwork in chart Attestations Medical Necessity Statement*: Patient needs to be in hospital for the management of sepsis Coding Level of Care Code 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
[2020-03-16] MEDS: lidocaine 1% 5 ML in potassium chloride premix 100 ML 50 ML IV (14:33)
[2020-03-16] MEDS: enoxaparin 40 mg/0.4 mL Syringe SUBCUT (16:47)
[2020-03-16] MEDS: magnesium sulfate premix 2 GM/50 ML PIGGYBACK IV (16:48)
[2020-03-16] MEDS: azithromycin 500 MG in sodium chloride 0.9% 250 ML 250 MG IV (17:55)
--- NOTE | 2020-03-16 19:08 | PC.NURSE ---
Right forearm was red and warm to touch. Left forearm WNL. Patient stated yes, when asking if right forearm hurts. IV removed from right wrist with catheter intact.
[2020-03-17] VITALS (8 sets, daily range): BP systolic 107–119; BP diastolic 60–84; PULSE 56–85; RESP 15–32; TEMP 36.6–37; O2SAT 95–100
[2020-03-17] MEDS: famotidine 20 mg Tablet PO (02:36)
[2020-03-17] MEDS: dextrose 5%-sod chloride 0.45% 1,000 ML 100 ML IV (02:36)
--- NOTE | 2020-03-17 02:39 | PC.NURSE ---
Patient coughs for several minutes after drinking water even with thicker in it as ordered.
[2020-03-17 05:23] LABS: Basophils % 0.5 %; Eosinophils # 0.3 10^3/uL (0.0-0.8); Eosinophils % 4.9 %; Hematocrit 32.9 % (42.0-52.0); Hemoglobin 10.2 g/dL (11.7-16.6); Lymphocytes # 0.7 10^3/uL (0.8-4.8); Lymphocytes % 11.4 %; Mean Corpuscular Hemoglobin 29.9 pg (28.0-34.0); Mean Corpuscular Volume 96.5 fL (80-94); Mean Platelet Volume 10.9 fL (7.4-10.4); Monocytes # 0.5 10^3/uL (0.2-0.9); Monocytes % 8.1 %; Neutrophils # 4.63 10^3/uL (1.8-7.7); Neutrophils % 73.4 %; Nucleated Red Blood Cells % 0 %; Platelet Count 196 10^3/cmm (130-400); Red Blood Count 3.41 10^6/uL (4.1-5.3); White Blood Count 6.3 10^3/uL (4.0-10.0)
[2020-03-17 05:34] LABS: Vancomycin Trough 21.3 ug/mL (10-15)
[2020-03-17 05:54] LABS: Alanine Aminotransferase 46 U/L (0-41); Albumin Level 2.5 g/dL (3.5-5.2); Alkaline Phosphatase 65 IU/L (40-130); Anion Gap 10.4 (5-19); Aspartate Amino Transferase 39 U/L (0-40); Blood Urea Nitrogen 8 mg/dL (8-23); Carbon Dioxide 28 mmol/L (22-29); Chloride 106 mmol/L (98-107); Globulin 2.6 g/dL (1.3-4.6); Glucose 95 mg/dL (65-115); Magnesium 1.8 mg/dL (1.7-2.3); Osmolality Calculated 290 mOsm/kg (285-295); Potassium 3.4 mmol/L (3.5-5.1); Sodium 141 mmol/L (136-145); Total Bilirubin 0.3 mg/dL (0.15-1.2); Total Protein 5.1 g/dL (6.6-8.7)
[2020-03-17] MEDS: cefepime 1,000 MG in sodium chloride 0.9% (plus) 50 ML 100 MG IV ×2 (09:46→20:16)
[2020-03-17] MEDS: aspirin 81 mg Chew Tablet PO (09:48)
[2020-03-17] MEDS: zinc gluconate 50 mg Tablet PO (09:48)
[2020-03-17] MEDS: FUROsemide 10 mg/mL SDV 4mL 40 MG IVP (09:48)
[2020-03-17] MEDS: donepezil 5 MG Tablet 10 MG PO (09:49)
[2020-03-17] MEDS: sennosides-docusate Tablet 1 TAB PO (09:49)
[2020-03-17] MEDS: benzonatate 100 mg Capsule PO ×2 (09:49→16:29)
[2020-03-17] MEDS: memantine 5 mg tablet 10 MG PO (09:49)
[2020-03-17] MEDS: erythromycin Op Oint 3.5 gm Tube 1 APPLIC EYE-BOTH ×2 (09:50→19:18)
[2020-03-17] MEDS: nystatin powder 15 gm Btl 1 APPLIC TOPICAL ×2 (09:50→19:18)
[2020-03-17] MEDS: amiodarone 200 mg Tablet PO (09:50)
[2020-03-17] MEDS: citalopram 20 mg Tablet PO (09:50)
--- NOTE | 2020-03-17 10:18 | DCPLANNER ---
IMM completed on 03/17/20 @ 1012. Copy of rights given to pt.
[2020-03-17] MEDS: lidocaine 1% 5 ML in potassium chloride premix 100 ML 25 ML IV (11:48)
[2020-03-17] MEDS: magnesium sulfate premix 2 GM/50 ML PIGGYBACK IV (11:48)
--- NOTE | 2020-03-17 13:21 | P.PN_ITS ---
Subjective Subjective: Interval history: has improved he answers questions in 1 or 2 words. Has remained afebrile. Vitals are stable. Medications: Reviewed: Yes Vitals/I&O/Wt Last Vital Signs Temp 97.9 F 03/17/20 12:00 Pulse 76 03/17/20 12:00 Resp 24 H 03/17/20 07:45 BP 117/73 03/17/20 12:00 Pulse Ox 97 03/17/20 12:00 03/16/20 03/17/20 03/17/20 22:59 06:59 14:59 Intake Total 1530 / 3016.667 258.333 / 3275.000 Output Total 1450 / 2850 225 / 3075 Balance 80 / 166.667 33.333 / 200.000 Weight last 48 hrs Weight 107.184 kg Weight 105.324 kg Physical Exam Narrative: EXAM NARRATIVE: Currently AO*0 Resp: OTHER: Laboured breathing, minimal ronchii at bases with occasional whezzing, difficulty to auscultate entire posterior chest field. Cardio: COMMON NORMALS: regular rate, regular rhythm, S1 normal heart sound present, S2 normal heart sound present, No gallops present (Cardio), No murmurs present (Cardio), No rub (Cardio) and Peripheral pulses 2+ throughout RATE: regular rate RHYTHM: regular rhythm HEART SOUNDS: S1 normal heart sound present and S2 normal heart sound present PERIPHERAL PULSES: Peripheral pulses 2+ throughout GI: COMMON NORMALS: Normal to inspection, nondistended, normoactive bowel sounds present, Soft to palpation, non-tender, No hepatosplenomegaly present and no masses AUSCULTATION: Yes normoactive bowel sounds PALPATION: Yes Soft to palpation and Yes No hepatosplenomegaly present RECTAL EXAM: Yes deferred Extremity: COMMON NORMALS: no clubbing, cyanosis or edema and no pedal edema Urinary Catheter Management^: Lennon: Cath Placed During This Visit: yes Reason for Continuing Indwelling Catheter: Accurate Measurement of Urinary Output in Critically Ill Patients Urinary Catheter Date of Insertion: 03/12/20 Urinary Catheter Time of Insertion: 11:53 Data : 03/17/20 05:02 03/17/20 05:02 Micro: Microbiology 03/12/20 11:35 Blood Culture - Final Blood NO GROWTH AFTER 5 DAYS 03/13/20 18:45 Urine Culture - Final Urine,Clean Catch A&P Assessment and plan (1) Septic shock: -noted to be tachycardic, hypotensive, tachypneic, hypoxic, febrile, with clinical evidence of infection (UTI), leukocytosis, and BERNARD -so far has received 3 L NS boluses with noted improvement in hemodynamic status ; will continue IV fluid hydration -Currently on BiPAP support wean as tolerated, monitor respiratory status, supplemental oxygen as needed -Continue to monitor vital signs closely -Telemetry monitoring lactic acid within normal limits, currently febrile -UA with noted evidence of infection -urine cx: Morgenella Morganii ( Sensitive to cefepime ) , will continue vanco/aleida/stop Imipe/ start cefepime ( 02/11 ) -Repeat blood culture : No Growth -Repeat Urine Culture:Prelim no Growth -CXR unremarkable -just recovered from COVID-19 infection; tested negative at [facility] following completion of quarantine period Status: Acute (2) A-fib: Patient was in A.FIB with RVR. Initially started on Amiodarone drip.Has been switched to 400 mg amiodarone po q12 h daily. Currently rate is well controlled . Status: Acute (3) Acute cystitis: -UA with noted evidence of infection -Lennon catheter placed in ER Status: Acute Qualifiers: Hematuria presence: without hematuria Qualified Code(s): N30.00 - Acute cystitis without hematuria (4) Dehydration: Status: Acute (5) Acute kidney injury: -secondary to dehydration and sepsis :Resolved -monitor renal function, avoid nephrotoxins, renally dose meds -IVF hydration -has Lennon catheter in place, monitor urine output Status: Acute (6) CVA (cerebral vascular accident): -known prior hx of CVA -resume ASA when PO appropriate Status: Chronic Qualifiers: CVA mechanism: unspecified Qualified Code(s): I63.9 - Cerebral infarction, unspecified (7) Dementia: -strict fall, aspiration precautions -resume meds when PO appropriate Status: Chronic Qualifiers: Dementia behavioral disturbance: with behavioral disturbance Dementia type: unspecified type Qualified Code(s): F03.91 - Unspecified dementia with behavioral disturbance (8) COPD (chronic obstructive pulmonary disease): -no acute exacerbation currently -not oxygen dependent at baseline Status: Chronic Qualifiers: COPD type: unspecified COPD Qualified Code(s): J44.9 - Chronic obstructive pulmonary disease, unspecified (9) HTN (hypertension): -Currently B/P Well controlled -monitor vital signs Status: Chronic Qualifiers: Hypertension type: essential hypertension Qualified Code(s): I10 - Essential (primary) hypertension (10) Obstructive sleep apnea: Status: Chronic (11) Hyperlipidemia: Status: Chronic Qualifiers: Hyperlipidemia type: unspecified Qualified Code(s): E78.5 - Hyperlipidemia, unspecified Additional A&P Information -Advanced age -bilateral bacterial conjunctivitis; start on erythromycin ointment, warm compresses -inguinal intertrigo; nystatin powder, keep skin folds clean and dry -hx of prostate cancer s/p radiation treatment, on androgen deprivation therapy -recent COVID-19 infection, just completed quarantine period, tested negative at [facility] at the end of her quarantine -NPO for now pending improvement in mental status -GI ppx with famotidine -DVT ppx with lovenox -Dispo: return to [facility] -Code status: DNR/DNI; paperwork in chart -Had detailed discussion with son today, according to him patient has been like this for a longtime.He has not been ambulating, mostly answers in 1-2 words.Has poor feeding habits,has gradually worsened more since july of this year. Attestations Medical Necessity Statement*: Patient needs to be in hospital for the management of sepsis. Coding Level of Care Code Acute Client Care Manager for [facility] 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
[2020-03-17] MEDS: ipratropium-albuterol 3 mL Neb INHALATION ×2 (15:45→23:18)
[2020-03-17] MEDS: enoxaparin 40 mg/0.4 mL Syringe SUBCUT (16:29)
[2020-03-17] MEDS: dextrose 5%-sod chloride 0.45% 1,000 ML 50 ML IV (16:42)
[2020-03-17] MEDS: azithromycin 500 MG in sodium chloride 0.9% 250 ML 250 MG IV (17:04)
--- NOTE | 2020-03-17 18:18 | PC.NURSE ---
Notified . Pt has been coughing up more even with thickened nectar and pureed food as well as crushed pills. Pt noted to have increase secretions. Suctioned PRN. Asked if we can get Atropine drops for him. Received telephone order read back to keep pt NPO and PRN Atropine drops for secretions.
--- NOTE | 2020-03-17 19:55 | PC.NURSE ---
ASSUMED CARE OF PT. PT WAS TURNED AND REPOSITIONED. PT DENIES PAIN. WILL CONTINUE TO MONITOR.
[2020-03-17 23:19] LABS: Vancomycin Trough 13.8 ug/mL (10-15)
[2020-03-18] VITALS (10 sets, daily range): BP systolic 118–148; BP diastolic 76–87; PULSE 60–85; RESP 17–29; TEMP 36.6–37.2; O2SAT 91–95
--- NOTE | 2020-03-18 04:36 | PC.NURSE ---
PT RESTING IN BED. TURNED AND REPOSITIONED. WILL GIVE REPORT TO ONCOMING SHIFT.
--- NOTE | 2020-03-18 08:00 | PC.NURSE ---
Pt awake, able to answer clearly verbally w/yes or no. Pt noted to keep spitting up and sticking his tongue.
[2020-03-18] MEDS: ipratropium-albuterol 3 mL Neb INHALATION ×3 (08:01→20:24)
[2020-03-18 10:11] LABS: Basophils % 0.4 %; Eosinophils # 0.3 10^3/uL (0.0-0.8); Eosinophils % 4.6 %; Hematocrit 36.8 % (42.0-52.0); Hemoglobin 11.3 g/dL (11.7-16.6); Lymphocytes # 0.8 10^3/uL (0.8-4.8); Lymphocytes % 11.6 %; Mean Corpuscular HGB Conc 30.7 g/dL (30.0-36.0); Mean Corpuscular Hemoglobin 29.7 pg (28.0-34.0); Mean Corpuscular Volume 96.6 fL (80-94); Monocytes # 0.5 10^3/uL (0.2-0.9); Monocytes % 7.5 %; Neutrophils # 4.97 10^3/uL (1.8-7.7); Neutrophils % 71.9 %; Nucleated Red Blood Cells % 0 %; Platelet Count 238 10^3/cmm (130-400); Red Blood Count 3.81 10^6/uL (4.1-5.3); Red Cell Distribution Width 12.1 % (12.1-15.1); White Blood Count 6.9 10^3/uL (4.0-10.0)
[2020-03-18 10:24] LABS: Alanine Aminotransferase 49 U/L (0-41); Albumin Level 2.8 g/dL (3.5-5.2); Alkaline Phosphatase 78 IU/L (40-130); Aspartate Amino Transferase 29 U/L (0-40); Blood Urea Nitrogen 11 mg/dL (8-23); Calcium 8.6 mg/dL (8.5-10.5); Carbon Dioxide 28 mmol/L (22-29); Chloride 102 mmol/L (98-107); Glucose 96 mg/dL (65-115); Magnesium 2.1 mg/dL (1.7-2.3); Osmolality Calculated 285 mOsm/kg (285-295); Sodium 138 mmol/L (136-145); Total Bilirubin 0.3 mg/dL (0.15-1.2); Total Protein 5.8 g/dL (6.6-8.7)
[2020-03-18 10:25] LABS: Anion Gap 11.9 (5-19); Potassium 3.9 mmol/L (3.5-5.1)
[2020-03-18] MEDS: cefepime 1,000 MG in sodium chloride 0.9% (plus) 50 ML 100 MG IV ×2 (11:04→20:35)
[2020-03-18] MEDS: FUROsemide 10 mg/mL SDV 4mL 40 MG IVP (11:05)
[2020-03-18] MEDS: nystatin powder 15 gm Btl 1 APPLIC TOPICAL ×2 (11:06→18:59)
[2020-03-18] MEDS: erythromycin Op Oint 3.5 gm Tube 1 APPLIC EYE-BOTH ×2 (11:06→19:00)
--- NOTE | 2020-03-18 11:20 | PC.CHAP ---
Pastoral Care Encounter/Spiritual Assessment Type of Contact [] Declined auto parts salesperson visit [] Patient/Family/Request visit [] Outpatient visit [] Follow-up visit [] Physician referral [] Code/Alert [] Routine visit [] Staff referral [] Actively dying [X] Patient sleeping [] Family support [] [] Out of room [] Palliative care [] [] Receiving care in room [] Pre-surgical visit [] Trauma [] Long length of stay [] ICU visit [] Other: Relational/Emotional Strength [] Patient feels connected with others/family/visitors/staff [] Distress [] Loneliness/isolation [] Abandonment Spirituality of Patient [] Person of Shahana [] Attends Druze of their Shahana [] Believes in Prayer [] Reads Bible or Hoahaoism materials [] There are Spiritual issues to be addressed Undergraduate Intern Interventions [] Prayer [] Active listening [] Non-anxious presence [] Spiritual/emotional support [] Crisis/trauma care [] Spiritual counseling [] Bereavement support [] Provided bereavement packet [] Provided Bible/devotional materials [] Provided toy/stuffed animal, coloring book to patient or family member [] Provided Communion [] Anointing/[place] [] Salvation [] Completed spiritual assessment [] Other: Impact on Illness or Injury [] Angry [] Fearful [] Anxious [] Often cries [] Exhaustion [] Unable to work [] Unable to attend restorationist [] Unable to walk/stand [] Unable to read [] Unable to drive [] Unable to eat/drink [] Unable to sleep [] Unable to be with family [] Patient intubated [] Other: Summary Time spent with patient
--- NOTE | 2020-03-18 11:36 | PM.PN ---
Subjective Subjective: Interval history: remain, somnolent and drowsy,minimally responsive today. Has remained : Afebrile, Labs :Reviewed Medications: Reviewed: Yes Vitals/I&O/Wt Last Vital Signs Temp 98 F 03/18/20 08:53 Pulse 79 03/18/20 08:53 Resp 29 H 03/18/20 08:53 BP 125/76 03/18/20 08:53 Pulse Ox 92 03/18/20 08:53 03/17/20 03/18/20 03/18/20 22:59 06:59 14:59 Intake Total 100 / 318 250 / 568 Output Total 3650 / 3650 225 / 3875 Balance -3550 / -3332 25 / -3307 Weight last 48 hrs Weight 107.093 kg Weight 107.184 kg Physical Exam Narrative: EXAM NARRATIVE: AO*0 ,Not verbally redirectable HENMT: COMMON NORMALS: normocephalic and atraumatic HEAD & SCALP: normocephalic and atraumatic Eye: GENERAL EYE: appearance normal, both eyes and all related structures Chest: CHEST: Yes Symmetrical chest wall rise Resp: COMMON NORMALS: clear to auscultation bilaterally AUSCULTATION: clear to auscultation bilaterally Cardio: COMMON NORMALS: regular rate, regular rhythm, S1 normal heart sound present, S2 normal heart sound present, No gallops present (Cardio), No murmurs present (Cardio), No rub (Cardio) and Peripheral pulses 2+ throughout RATE: regular rate RHYTHM: regular rhythm HEART SOUNDS: S1 normal heart sound present and S2 normal heart sound present PERIPHERAL PULSES: Peripheral pulses 2+ throughout GI: COMMON NORMALS: Normal to inspection, nondistended, normoactive bowel sounds present, Soft to palpation, non-tender, No hepatosplenomegaly present and no masses AUSCULTATION: Yes normoactive bowel sounds PALPATION: Yes Soft to palpation and Yes No hepatosplenomegaly present RECTAL EXAM: Yes deferred Extremity: COMMON NORMALS: no clubbing, cyanosis or edema and no pedal edema Urinary Catheter Management^: Lennon: Cath Placed During This Visit: yes Reason for Continuing Indwelling Catheter: Accurate Measurement of Urinary Output in Critically Ill Patients Urinary Catheter Date of Insertion: 03/12/20 Urinary Catheter Time of Insertion: 11:53 Data : 03/18/20 09:07 03/18/20 09:07 Micro: Microbiology 03/12/20 11:35 Blood Culture - Final Blood NO GROWTH AFTER 5 DAYS A&P Assessment and plan (1) Septic shock: -noted to be tachycardic, hypotensive, tachypneic, hypoxic, febrile, with clinical evidence of infection (UTI), leukocytosis, and BERNARD -so far has received 3 L NS boluses with noted improvement in hemodynamic status; will continue IV fluid hydration -Currently on BiPAP support wean as tolerated, monitor respiratory status, supplemental oxygen as needed -Continue to monitor vital signs closely -Telemetry monitoring lactic acid within normal limits, currently febrile -UA with noted evidence of infection -urine cx: Morgenella Morganii ( Sensitive to cefepime ) , will continue vanco/aleida/stop Imipe/ start cefepime ( 03/14 ). - Will complete 7 day course of cefepime on ( 03/20 ) and stop cefepime. as repeat urine culture has no growth. --Repeat Urine Culture:No growth -Repeat blood culture : No Growth -CXR unremarkable -just recovered from COVID-19 infection; [facility] at [facility] following completion of quarantine period Status: Acute (2) Acute encephalopathy: Ac Encephalopathy: Patient is quite a bit encephalopathic today, not his baseline.Likely 2/2 to ongoing infection. Will do C.T Head without contrast as well as ABG. On ABx Coverage. Status: Acute (3) A-fib: Patient was in A.FIB with RVR. Initially started on Amiodarone drip.Has been switched to 400 mg amiodarone po q12h daily. Currently rate is well controlled . Status: Acute (4) Acute cystitis: -UA with noted evidence of infection -Lennon catheter placed in ER Status: Acute Qualifiers: Hematuria presence: without hematuria Qualified Code(s): N30.00 - Acute cystitis without hematuria (5) Dehydration: Status: Acute (6) Acute kidney injury: -secondary to dehydration and sepsis :Resolved -monitor renal function, avoid nephrotoxins, renally dose meds -IVF hydration -has Lennon catheter in place, monitor urine output Status: Acute (7) CVA (cerebral vascular accident): -known prior hx of CVA -resume ASA when PO appropriate Status: Chronic Qualifiers: CVA mechanism: unspecified Qualified Code(s): I63.9 - Cerebral infarction, unspecified (8) Dementia: -strict fall, aspiration precautions -resume meds when PO appropriate Status: Chronic Qualifiers: Dementia behavioral disturbance: with behavioral disturbance Dementia type: unspecified type Qualified Code(s): F03.91 - Unspecified dementia with behavioral disturbance (9) COPD (chronic obstructive pulmonary disease): -no acute exacerbation currently -not oxygen dependent at baseline Status: Chronic Qualifiers: COPD type: unspecified COPD Qualified Code(s): J44.9 - Chronic obstructive pulmonary disease, unspecified (10) HTN (hypertension): -Currently B/P Well controlled -monitor vital signs Status: Chronic Qualifiers: Hypertension type: essential hypertension Qualified Code(s): I10 - Essential (primary) hypertension (11) Obstructive sleep apnea: Status: Chronic (12) Hyperlipidemia: Status: Chronic Qualifiers: Hyperlipidemia type: unspecified Qualified Code(s): E78.5 - Hyperlipidemia, unspecified Additional A&P Information -Advanced age -bilateral bacterial conjunctivitis; start on erythromycin ointment, warm compresses -inguinal intertrigo; nystatin powder, keep skin folds clean and dry -hx of prostate cancer s/p radiation treatment, on androgen deprivation therapy -recent COVID-19 infection, just completed quarantine period, [facility] negative at [facility] at the end of [facility] -Diet: N.G tube placed. Feed started with jevity @ 10cc/hr with goal rate of 40 cc. -GI ppx with famotidine -DVT ppx with lovenox -Dispo: return to [facility] -Code status: DNR/DNI; paperwork in chart -Had detailed discussion with son today, according to him patient has been like this for a longtime.He has not been ambulating, mostly answers in 1-2 words.Has poor feeding habits,has gradually worsened more since july of this year. Attestations Medical Necessity Statement*: Patient needs to be in hospital for the managment of sepsis and Ac encephalopathy. Coding Level of Care Code Acute Estimator And Drafter Supervisor for g Fwd Diagnoses Septic shock A41.9; R65.21 Acute encephalopathy G93.40 A-fib I48.91 Acute cystitis N30.00 Hematuria presence: without hematuria Dehydration E86.0 Acute kidney injury N17.9 CVA (cerebral vascular accident) I63.9 CVA mechanism: unspecified Dementia F03.91 Dementia behavioral disturbance: with behavioral disturbance Dementia type: unspecified type COPD (chronic obstructive pulmonary disease) J44.9 COPD type: unspecified COPD HTN (hypertension) I10 Hypertension type: essential hypertension Obstructive sleep apnea G47.33 Hyperlipidemia E78.5 Hyperlipidemia type: unspecified
--- NOTE | 2020-03-18 15:18 | XRR_ITS ---
PROCEDURE INFORMATION: Exam: XR Chest, 1 View Exam date and time: 03/18/2020 3:34 PM Age: 84 years old Clinical indication: Device placement; Ng tube; Additional info: Post ngt insertion TECHNIQUE: Imaging protocol: XR of the chest Views: 1 view. COMPARISON: CR (CHEST, ) 03/12/2020 11:30 AM FINDINGS: Tubes, catheters and devices: NG tube extends into the stomach. Lungs: Unremarkable. No consolidation. Pleural space: There is elevation of the left hemidiaphragm present. No pleural effusion. No pneumothorax. Heart/Mediastinum: Unremarkable. No cardiomegaly. Bones/joints: Unremarkable. XR/XR chest 1V portable [id number] IMPRESSION: 1. No acute findings. 2. Elevated left hemidiaphragm. 3. NG tube extends into the stomach
[2020-03-18] MEDS: dextrose 5%-sod chloride 0.45% 1,000 ML 50 ML IV (16:07)
[2020-03-18 17:26] LABS: Vancomycin Trough 17.9 ug/mL (10-15)
[2020-03-18] MEDS: amiodarone 200 mg Tablet PO (18:56)
[2020-03-18] MEDS: memantine 5 mg tablet 10 MG PO (18:56)
[2020-03-18] MEDS: famotidine 20 mg Tablet PO (18:56)
[2020-03-18] MEDS: enoxaparin 40 mg/0.4 mL Syringe SUBCUT (18:58)
[2020-03-18] MEDS: azithromycin 500 MG in sodium chloride 0.9% 250 ML 250 MG IV (19:26)
[2020-03-18] MEDS: benzonatate 100 mg Capsule PO (20:36)
--- NOTE | 2020-03-18 22:57 | PC.NURSE ---
PT IS RESTING IN BED AT THIS TIME. PT IS ALERT AND ABLE TO VERBALLY RESPOND TO QUESTIONS. PT HAS A NG TUBE WITH JEVITY 1.2 RUNNING AT 10ML/HR. WILL CONTINUE TO MONITOR.
[2020-03-19] VITALS (10 sets, daily range): BP systolic 123–150; BP diastolic 74–92; PULSE 69–84; RESP 16–29; TEMP 36.5–37; O2SAT 91–97; BMI 34.7
--- NOTE | 2020-03-19 03:55 | PC.NURSE ---
PT IS RESTING IN BED. PT DENIES PAIN. TURNED AND REPOSITIONED. 140ML RETURNED GASTRIC CONTENTS. DR HURT NOTIFIED AND ORDERS TO HOLD TUBE FEEDING FOR 6 HOURS. WILL CONTINUE TO MONITOR.
[2020-03-19] MEDS: famotidine 20 mg Tablet PO ×2 (05:13→17:50)
[2020-03-19 05:27] LABS: Basophils % 0.6 %; Eosinophils # 0.3 10^3/uL (0.0-0.8); Eosinophils % 4.3 %; Hematocrit 36.1 % (42.0-52.0); Hemoglobin 11.2 g/dL (11.7-16.6); Lymphocytes # 0.7 10^3/uL (0.8-4.8); Lymphocytes % 10.6 %; Mean Corpuscular Hemoglobin 29.9 pg (28.0-34.0); Mean Corpuscular Volume 96.3 fL (80-94); Mean Platelet Volume 10.5 fL (7.4-10.4); Monocytes # 0.5 10^3/uL (0.2-0.9); Monocytes % 8.5 %; Neutrophils # 4.51 10^3/uL (1.8-7.7); Neutrophils % 71.1 %; Nucleated Red Blood Cells % 0 %; Platelet Count 255 10^3/cmm (130-400); Red Blood Count 3.75 10^6/uL (4.1-5.3); Red Cell Distribution Width 12.1 % (12.1-15.1); White Blood Count 6.3 10^3/uL (4.0-10.0)
[2020-03-19 05:57] LABS: Alanine Aminotransferase 48 U/L (0-41); Albumin Level 2.6 g/dL (3.5-5.2); Alkaline Phosphatase 80 IU/L (40-130); Aspartate Amino Transferase 31 U/L (0-40); Blood Urea Nitrogen 11 mg/dL (8-23); Calcium 8.6 mg/dL (8.5-10.5); Carbon Dioxide 30 mmol/L (22-29); Chloride 102 mmol/L (98-107); Globulin 3.1 g/dL (1.3-4.6); Glucose 110 mg/dL (65-115); Osmolality Calculated 290 mOsm/kg (285-295); Sodium 140 mmol/L (136-145); Total Bilirubin 0.3 mg/dL (0.15-1.2); Total Protein 5.7 g/dL (6.6-8.7)
[2020-03-19 06:01] LABS: Anion Gap 11.5 (5-19); Potassium 3.5 mmol/L (3.5-5.1)
[2020-03-19] MEDS: ipratropium-albuterol 3 mL Neb INHALATION ×3 (07:55→21:02)
--- NOTE | 2020-03-19 08:40 | PC.SOCIAL ---
IMM Update Pg. 2 of IMM Updated and reviewed with patient who verbalized understanding. Copy provided.
--- NOTE | 2020-03-19 09:30 | PC.NURSE ---
Pt pulled his NG tube at bedside for his rounding and noticed that pt NG tube is out. Discuss with the doctor regarding re-insertion. Received order not to restart and keep pt NPO for now. Oral swab provided to pt for moisture.
[2020-03-19] MEDS: FUROsemide 10 mg/mL SDV 4mL 40 MG IVP (10:24)
[2020-03-19] MEDS: cefepime 1,000 MG in sodium chloride 0.9% (plus) 50 ML 100 MG IV ×2 (10:27→20:28)
[2020-03-19] MEDS: erythromycin Op Oint 3.5 gm Tube 1 APPLIC EYE-BOTH ×2 (10:39→18:25)
[2020-03-19] MEDS: nystatin powder 15 gm Btl 1 APPLIC TOPICAL ×2 (10:39→18:25)
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
--- NOTE | 2020-03-19 11:12 | P.PN_ITS ---
Subjective Subjective: Interval history: Patient is more responsive today. He follows simple commands.Knows his name,name of his son. Has remained afebrile,other vitals and labs have been reviewed. Medications: Reviewed: Yes Vitals/I&O/Wt Last Vital Signs Temp 98.6 F 03/19/20 08:00 Pulse 78 03/19/20 08:00 Resp 24 H 03/19/20 08:00 BP 140/78 03/19/20 08:00 Pulse Ox 92 03/19/20 08:00 03/18/20 03/19/20 03/19/20 22:59 06:59 14:59 Intake Total 490 / 1540 Output Total 1999 / 1999 120 / 2120 850 / 850 Balance -1510 / -460 -120 / -580 -850 / -850 Weight last 48 hrs Weight 106.821 kg Weight 107.093 kg Physical Exam Narrative: EXAM NARRATIVE: AO*1 HENMT: COMMON NORMALS: normocephalic and atraumatic HEAD & SCALP: normocephalic and atraumatic Chest: COMMONS NORMALS: normal inspection of the chest Resp: COMMON NORMALS: clear to auscultation bilaterally EFFORT & INSPECTION: Yes symmetric chest movement AUSCULTATION: clear to auscultation bilaterally Cardio: COMMON NORMALS: regular rate, regular rhythm, S1 normal heart sound present, S2 normal heart sound present, No gallops present (Cardio), No murmurs present (Cardio), No rub (Cardio) and Peripheral pulses 2+ throughout RATE: regular rate RHYTHM: regular rhythm HEART SOUNDS: S1 normal heart sound pr esent and S2 normal heart sound present PERIPHERAL PULSES: Peripheral pulses 2+ throughout GI: COMMON NORMALS: Normal to inspection, nondistended, normoactive bowel sounds present, Soft to palpation, non-tender, No hepatosplenomegaly present and no masses AUSCULTATION: Yes normoactive bowel sounds PALPATION: Yes Soft to palpation and Yes No hepatosplenomegaly present RECTAL EXAM: Yes deferred Extremity: COMMON NORMALS: no clubbing, cyanosis or edema and no pedal edema Urinary Catheter Management^: Lennon: Cath Placed During This Visit: yes Reason for Continuing Indwelling Catheter: Acute Urinary Retention or Obstruction Urinary Catheter Date of Insertion: 03/12/20 Urinary Catheter Time of Insertion: 11:53 Data : 03/19/20 04:37 03/19/20 04:37 Micro: Microbiology 03/13/20 18:23 Blood Culture - Final Blood NO GROWTH AFTER 5 DAYS 03/13/20 18:20 Blood Culture - Final Blood NO GROWTH AFTER 5 DAYS A&P Assessment and plan (1) Septic shock: -noted to be tachycardic, hypotensive, tachypneic, hypoxic, febrile, with clinical evidence of infection (UTI), leukocytosis, and BERNARD -so far has received 3 L NS boluses with noted improvement in hemodynamic status; will continue IV fluid hydration -Currently on BiPAP support wean as tolerated, monitor respiratory status, supplemental oxygen as needed -Continue to monitor vital signs closely -Telemetry monitoring lactic acid within normal limits, currently febrile -UA with noted evidence of infection -urine cx: Morgenella Morganii ( Sensitive to cefepime ) , will continue vanco/aleida/stop Imipe/ start cefepime ( 03/14 ). - Will complete 7 day course of cefepime on ( 03/20 ) and stop cefepime. as repeat urine culture has no growth. --Repeat Urine Culture:No growth -Repeat blood culture : No Growth -CXR unremarkable -just recovered from COVID-19 infection; [facility] Status: Acute (2) Acute encephalopathy: Ac Encephalopathy Likely 2/2 to infection On ABx Coverage. Status: Acute (3) A-fib: Patient was in A.FIB with RVR. Initially started on Amiodarone drip.Has been switched to 400 mg amiodarone po q12h daily. Currently rate is well controlled . Status: Acute (4) Acute cystitis: -UA with noted evidence of infection -Lennon catheter placed in ER Status: Acute Qualifiers: Hematuria presence: without hematuria Qualified Code(s): N30.00 - Acute cystitis without hematuria (5) Dehydration: Status: Acute (6) Acute kidney injury: -secondary to dehydration and sepsis :Resolved -monitor renal function, avoid nephrotoxins, renally dose meds -IVF hydration -has Lennon catheter in place, monitor urine output Status: Acute (7) CVA (cerebral vascular accident): -known prior hx of CVA -resume ASA when PO appropriate Status: Chronic Qualifiers: CVA mechanism: unspecified Qualified Code(s): I63.9 - Cerebral infarction, unspecified (8) Dementia: -strict fall, aspiration precautions -resume meds when PO appropriate Status: Chronic Qualifiers: Dementia behavioral disturbance: with behavioral disturbance Dementia type: unspecified type Qualified Code(s): F03.91 - Unspecified dementia with behavioral disturbance (9) COPD (chronic obstructive pulmonary disease): -no acute exacerbation currently -not oxygen dependent at baseline Status: Chronic Qualifiers: COPD type: unspecified COPD Qualified Code(s): J44.9 - Chronic obstructive pulmonary disease, unspecified (10) HTN (hypertension): -Currently B/P Well controlled -monitor vital signs Status: Chronic Qualifiers: Hypertension type: essential hypertension Qualified Code(s): I10 - Essential (primary) hypertension (11) Obstructive sleep apnea: Status: Chronic (12) Hyperlipidemia: Status: Chronic Qualifiers: Hyperlipidemia type: unspecified Qualified Code(s): E78.5 - Hyperlipidemia, unspecified Additional A&P Information -Advanced age -bilateral bacterial conjunctivitis; start on erythromycin ointment, warm compresses -inguinal intertrigo; nystatin powder, keep skin folds clean and dry -hx of prostate cancer s/p radiation treatment, on androgen deprivation therapy -recent COVID-19 infection, just completed quarantine period, [facility] of [facility] -Diet: N.G tube placed. Feed started with jevity @ 10cc/hr with goal rate of 40 cc. -GI ppx with famotidine -DVT ppx with lovenox -Dispo: return to [facility] -Code status: DNR/DNI; paperwork in chart -Had detailed discussion with son today, according to him patient has been like this for a longtime.He has not been ambulating, mostly answers in 1-2 words.Has poor feeding habits,has gradually worsened more since july of this year. Attestations Medical Necessity Statement*: Patient needs to be hospital for management of acute encephalopathy likely secondary to sepsis secondary to UTI. Coding Level of Care Code Acute Habilitation Specialist for Chg Fwd Diagnoses Septic shock A41.9; R65.21 Acute encephalopathy G93.40 A-fib I48.91 Acute cystitis N30.00 Hematuria presence: without hematuria Dehydration E86.0 Acute kidney injury N17.9 CVA (cerebral vascular accident) I63.9 CVA mechanism: unspecified Dementia F03.91 Dementia behavioral disturbance: with behavioral disturbance Dementia type: unspecified type COPD (chronic obstructive pulmonary disease) J44.9 COPD type: unspecified COPD HTN (hypertension) I10 Hypertension type: essential hypertension Obstructive sleep apnea G47.33 Hyperlipidemia E78.5 Hyperlipidemia type: unspecified
[2020-03-19] MEDS: dextrose 5%-sod chloride 0.45% 1,000 ML 50 ML IV (16:16)
--- NOTE | 2020-03-19 17:00 | PC.NURSE ---
Shift summary Pt is more awake, verbalizes Yan's name when asked about his sons's name. Pt ate his pudding with crushed pills and swallowed his water with thickened nectar consistency with occasional cough. Speech Therapist re-evaluated him today. Notified regarding pt's mentation and St re-evaluation for swallowing. Pureed diet ordered. Pt follows commands, still makes occasional mouth sounds or noise like his blowing out something from his mouth. Able to lift his arms and bend his knees when asked. Partial sponge bath provided. Pt shaved, oral cares provided this shift, Aye care and catheter cares provided. Had 1 moderate amt of soft BM. Will monitor.
[2020-03-19] MEDS: amiodarone 200 mg Tablet PO (17:50)
[2020-03-19] MEDS: enoxaparin 40 mg/0.4 mL Syringe SUBCUT (17:50)
[2020-03-19] MEDS: memantine 5 mg tablet 10 MG PO (17:51)
[2020-03-19] MEDS: azithromycin 500 MG in sodium chloride 0.9% 250 ML 250 MG IV (17:51)
[2020-03-19] MEDS: benzonatate 100 mg Capsule PO (20:28)
[2020-03-19] MEDS: lanolin oint 7 gm 1 APPLIC TOPICAL (20:30)
[2020-03-20] VITALS (7 sets, daily range): BP systolic 127–146; BP diastolic 68–98; PULSE 67–86; RESP 16–27; TEMP 36.5–37.1; O2SAT 91–96
--- NOTE | 2020-03-20 00:23 | PC.NURSE ---
[id number] Patient yelled out Help denies pain. Nods yes when asked if he'd like to be repositioned. Oral care done and patient repositioned. Then quickly back to sleep.
[2020-03-20] MEDS: famotidine 20 mg Tablet PO (04:13)
[2020-03-20 04:19] LABS: Basophils # 0.1 10^3/uL (0.0-0.1); Eosinophils # 0.3 10^3/uL (0.0-0.8); Eosinophils % 5.5 %; Hematocrit 36.8 % (42.0-52.0); Hemoglobin 11.6 g/dL (11.7-16.6); Lymphocytes # 0.9 10^3/uL (0.8-4.8); Mean Corpuscular HGB Conc 31.5 g/dL (30.0-36.0); Mean Corpuscular Hemoglobin 29.9 pg (28.0-34.0); Mean Corpuscular Volume 94.8 fL (80-94); Mean Platelet Volume 10.4 fL (7.4-10.4); Monocytes # 0.6 10^3/uL (0.2-0.9); Monocytes % 9.2 %; Neutrophils # 4.04 10^3/uL (1.8-7.7); Neutrophils % 64.8 %; Nucleated Red Blood Cells % 0 %; Platelet Count 290 10^3/cmm (130-400); Red Blood Count 3.88 10^6/uL (4.1-5.3); White Blood Count 6.2 10^3/uL (4.0-10.0)
[2020-03-20 04:40] LABS: Alanine Aminotransferase 45 U/L (0-41); Alkaline Phosphatase 81 IU/L (40-130); Anion Gap 10.1 (5-19); Aspartate Amino Transferase 28 U/L (0-40); Blood Urea Nitrogen 10 mg/dL (8-23); Calcium 8.9 mg/dL (8.5-10.5); Carbon Dioxide 32 mmol/L (22-29); Chloride 99 mmol/L (98-107); Globulin 2.9 g/dL (1.3-4.6); Glucose 101 mg/dL (65-115); Magnesium 1.9 mg/dL (1.7-2.3); Osmolality Calculated 285 mOsm/kg (285-295); Potassium 3.1 mmol/L (3.5-5.1); Sodium 138 mmol/L (136-145); Total Bilirubin 0.4 mg/dL (0.15-1.2); Total Protein 5.9 g/dL (6.6-8.7)
[2020-03-20 06:31] LABS: Slide Review Slide Review Perform
[2020-03-20] MEDS: ipratropium-albuterol 3 mL Neb INHALATION (09:15)
[2020-03-20] MEDS: amiodarone 200 mg Tablet PO (09:37)
[2020-03-20] MEDS: donepezil 5 MG Tablet 10 MG PO (09:37)
[2020-03-20] MEDS: benzonatate 100 mg Capsule PO (09:37)
[2020-03-20] MEDS: citalopram 20 mg Tablet PO (09:37)
[2020-03-20] MEDS: aspirin 81 mg Chew Tablet PO (09:37)
[2020-03-20] MEDS: memantine 5 mg tablet 10 MG PO (09:37)
[2020-03-20] MEDS: FUROsemide 10 mg/mL SDV 4mL 40 MG IVP (09:38)
[2020-03-20] MEDS: nystatin powder 15 gm Btl 1 APPLIC TOPICAL (09:47)
[2020-03-20] MEDS: cefepime 1,000 MG in sodium chloride 0.9% (plus) 50 ML 100 MG IV (09:47)
[2020-03-20] MEDS: erythromycin Op Oint 3.5 gm Tube 1 APPLIC EYE-BOTH (09:48)
--- NOTE | 2020-03-20 09:58 | PM.DCS ---
Discharge Providers Date of Admission: 03/12/20 13:47 Date of Discharge: March 20, 2020 Attending Provider at Admission: Andie Villalobos MD Attending Provider at Discharge: Candido Richardson MD Diagnoses at Discharge Discharge Diagnosis (1) Septic shock: Status: Resolved (2) Acute encephalopathy: Status: Resolved (3) A-fib: Status: Chronic (4) Acute cystitis: Status: Resolved Qualifiers: Hematuria presence: without hematuria Qualified Code(s): N30.00 - Acute cystitis without hematuria (5) Dehydration: Status: Resolved (6) Acute kidney injury: Status: Resolved (7) CVA (cerebral vascular accident): Status: Chronic Qualifiers: CVA mechanism: unspecified Qualified Code(s): I63.9 - Cerebral infarction, unspecified (8) Dementia: Status: Chronic Qualifiers: Dementia behavioral disturbance: with behavioral disturbance Dementia type: unspecified type Qualified Code(s): F03.91 - Unspecified dementia with behavioral disturbance (9) COPD (chronic obstructive pulmonary disease): Status: Chronic Qualifiers: COPD type: unspecified COPD Qualified Code(s): J44.9 - Chronic obstructive pulmonary disease, unspecified (10) HTN (hypertension): Status: Chronic Qualifiers: Hypertension type: essential hypertension Qualified Code(s): I10 - Essential (primary) hypertension (11) Obstructive sleep apnea: Status: Chronic (12) Hyperlipidemia: Status: Chronic Qualifiers: Hyperlipidemia type: unspecified Qualified Code(s): E78.5 - Hyperlipidemia, unspecified Reason for Visit Reason for Visit: RESP DISTRESS Hospital Course Hospital Course 84 year old male with a past medical history of dementia, prostate cancer, COPD, history of prior CVA and hypertension was brought in from [facility] with c/o decreased responsiveness, fever, tachypnea and was admitted for management of urosepsis , Ac encephalopathy 2/2 to sepsis as well as BERNARD.During the hospital stay he was on broad spectrum Abxs ( Zosyn, vancomycin and imipenam ) urine cx: Morgenella Morganii ( Sensitive to cefepime ).He was kept on cefepime for 7 days , repeat urine culture was negative, blood culture was negative. with sepsis standpoint he responded to above mentioned abxs.His Ac encephalopathy has also resolved he is at his baseline.BERNARD was resolved at the time of discharge.During this hospital stay he developed new onset A.fib with RVr. He needed amidarone drip initially and later was switched to amiodaone 200 mg oral daily.He was also started on eliquis 2.5 mg q12h oral daily. He responded well to the above mentioned treatment and is being discharged in stable condition to long term. Physical Exam Chest: CHEST: Yes Symmetrical chest wall rise Resp: COMMON NORMALS: normal respiratory effort and clear to auscultation bilaterally EFFORT & INSPECTION: Yes symmetric chest movement AUSCULTATION: clear to auscultation bilaterally Cardio: COMMON NORMALS: regular rate, regular rhythm, S1 normal heart sound present, S2 normal heart sound present, No gallops present (Cardio), No murmurs present (Cardio), No rub (Cardio) and Peripheral pulses 2+ throughout RATE: regular rate RHYTHM: regular rhythm HEART SOUNDS: S1 normal heart sound present and S2 normal heart sound present PERIPHERAL PULSES: Peripheral pulses 2+ throughout GI: COMMON NORMALS: Normal to inspection, nondistended, normoactive bowel sounds present, Soft to palpation, non-tender, No hepatosplenomegaly present and no masses AUSCULTATION: Yes normoactive bowel sounds PALPATION: Yes Soft to palpation and Yes No hepatosplenomegaly present RECTAL EXAM: Yes deferred Extremity: COMMON NORMALS: no clubbing, cyanosis or edema and no pedal edema Urinary Catheter Management^: Lennon: Cath Placed During This Visit: yes Reason for Continuing Indwelling Catheter: Acute Urinary Retention or Obstruction Urinary Catheter Date of Insertion: 03/12/20 Urinary Catheter Time of Insertion: 11:53 Discharge Data Data Completed and Pending: Completed Studies During Hospitalization Category Date Time Status XR chest 1V leandro ble [id number] Stat Exams 03/18/20 15:18 Completed XR chest 1V leandro ble [id number] Urgent Exams 03/12/20 11:26 Completed Pending at discharge Category Date Time Status CBC Auto Diff [Co mplete Blood Count w/Auto] AM LABS Lab 03/21/20 04:00 Ordered CMP [Comprehensiv e Metabolic Panel] AM LABS Lab 03/21/20 04:00 Ordered Magnesium AM LABS Lab 03/21/20 04:00 Ordered Labs from last 24 hours 03/20/20 03/20/20 03:50 03:50 WBC 6.2 RBC 3.88 L Hgb 11.6 L Hct 36.8 L MCV 94.8 H MCH 29.9 MCHC 31.5 RDW 12.0 L Plt Count 290 MPV 10.4 Neut % (Auto) 64.8 Lymph % (Auto) 14.0 [place] % (Auto) 9.2 Eos % (Auto) 5.5 Baso % (Auto) 1.0 Neut # (Auto) 4.04 Lymph # (Auto) 0.9 [place] # (Auto) 0.6 Eos # (Auto) 0.3 Baso # (Auto) 0.1 Nucleated RBC % (a uto) 0 Nucleated RBCs # 0.0 Sodium 138 Potassium 3.1 L Chloride 99 Carbon Dioxide 32 H Anion Gap 10.1 BUN 10 Creatinine 0.7 GFR Calculation Not Reportable Glucose 101 Calculated Osmolal ity 285 Calcium 8.9 Magnesium 1.9 Total Bilirubin 0.4 AST 28 ALT 45 H Alkaline Phosphata se 81 Total Protein 5.9 L Albumin 3.0 L Globulin 2.9 Vitals: Last Vital Signs Temp 97.7 F 03/20/20 07:49 Pulse 75 03/20/20 09:18 Resp 26 H 03/20/20 09:18 BP 127/98 03/20/20 07:52 Pulse Ox 91 03/20/20 09:18 Discharge Plan Discharge Patient Disposition: Home Condition: Stable Prescriptions: New Pacerone 200 mg Tablet 200 mg PO DAILY Qty: 30 RF: 0 Eliquis 2.5 mg tablet 2.5 mg PO BID Qty: 60 RF: 0 Continued furosemide 40 mg Tablet 40 mg PO DAILY RF: 0 bicalutamide 50 mg Tablet 50 mg PO DAILY RF: 0 ascorbic acid (vitamin C) [Vitamin C] 1,000 mg Tablet 1 g PO BID RF: 0 potassium chloride 10 mEq Capsule, Extended Release 10 meq PO DAILY RF: 0 acetaminophen [Tylenol] 325 mg Tablet 650 mg PO TID PRN (Reason: Fever Or Pain) RF: 0 ipratropium-albuterol 0.5 mg-3 mg(2.5 mg base)/3 mL Solution For Nebulization 3 ml INHALATION TID RF: 0 trazodone 50 mg Tablet 25 mg PO BEDTIME RF: 0 hydrocodone-acetaminophen 5-325 mg Tablet 1 tab PO BID PRN (Reason: Pain) RF: 0 donepezil 10 mg Tablet 10 mg PO DAILY RF: 0 sennosides-docusate sodium [Senna-S] 8.6-50 mg Tablet 1 tab-cap PO DAILY RF: 0 guaifenesin [Jossie-Tussin] 100 mg/5 mL Liquid 100 mg PO Q4H PRN (Reason: Cough) RF: 0 methenamine hippurate 1 gram Tablet 1 g PO BID RF: 0 citalopram 20 mg Tablet 20 mg PO DAILY RF: 0 famotidine 20 mg Tablet 20 mg PO BID RF: 0 lorazepam 0.5 mg Tablet 0.5 mg PO TID RF: 0 magnesium hydroxide [Milk of Magnesia] 400 mg/5 mL Suspension 400 mg PO DAILY PRN (Reason: Constipation) RF: 0 bisacodyl 10 mg Suppository 10 mg ND DAILY PRN (Reason: Constipation) RF: 0 Enema Disposable 19-7 gram/118 mL Enema 118 ml ND DAILY PRN (Reason: Constipation) RF: 0 aspirin [Aspirin Childrens] 81 mg Tablet,Chewable 81 mg PO DAILY RF: 0 loratadine [Claritin] 10 mg Tablet 10 mg PO DAILY RF: 0 memantine 10 mg Tablet 10 mg PO BID RF: 0 zinc gluconate 50 mg Tablet 50 mg PO DAILY Qty: 30 RF: 0 Spiriva with HandiHaler 18 mcg Capsule, W/Inhalation Device 18 mcg inhalation DAILY.RESPIRATORY Qty: 14 RF: 0 ferrous gluconate 324 mg (37.5 mg iron) Tablet 324 mg PO BIDWM Qty: 30 RF: 0 hydrocodone-acetaminophen 5-325 mg Tablet 1 tab PO BID RF: 0 risperidone 1 mg Tablet 1 mg PO TID RF: 0 Discharge Orders: Discharge Order (Routine); Ordered 03/20/20 Ordered By: Candido Richardson Referrals: [facility] [Outside] Pedrito Cervantes Jr, MD [Family Provider] - Discharge Diet: Usual diet Discharge Activity: Increase activity as tolerated Patient Instructions: Amiodarone (By mouth) Discharge Attestations Time Spent in Discharge Care*: greater than 30 min Specific Discharge Activities: discussing with child welfare caseworker/social workers/dc planners and documenting/other paperwork Status at Discharge: Cognitive status at discharge: moderately impaired cognition, Behavioral status at discharge: cooperative, Quality Metrics Clinical Quality Measures During this hospital stay, did patient experience: None Coding Level of Care Code Acute Wood Planer for [facility] Fwd Exam Detailed Diagnoses Septic shock A41.9; R65.21 Acute encephalopathy G93.40 A-fib I48.91 Acute cystitis N30.00 Hematuria presence: without hematuria Dehydration E86.0 Acute kidney injury N17.9 CVA (cerebral vascular accident) I63.9 CVA mechanism: unspecified Dementia F03.91 Dementia behavioral disturbance: with behavioral disturbance Dementia type: unspecified type COPD (chronic obstructive pulmonary disease) J44.9 COPD type: unspecified COPD HTN (hypertension) I10 Hypertension type: essential hypertension Obstructive sleep apnea G47.33 Hyperlipidemia E78.5 Hyperlipidemia type: unspecified
[2020-03-20] MEDS: zinc gluconate 50 mg Tablet PO (10:51)
[2020-03-20] MEDS: potassium chloride ER 20 mEq Tablet 40 MEQ PO (10:51)
--- NOTE | 2020-03-20 13:50 | PC.NURSE ---
Pt discharged back to [facility] at 13:30. Paperwork sent with transport staff. Pt transferred to [facility] without incident. IV and glaser catheter removed. Report called to JUNIOR Foreman at 11am. All questions answered. Pt alert, calm, and cooperative at time of discharge. No s/s distress. and son notified of discharge via telephone. VSS at time of discharge.
--- NOTE | 2020-03-20 13:54 | PC.NURSE ---
Pt unable to understand all of discharge education due to basline mental status. Family updated of plan of care via telephone.
== END 2020-03-20 13:35 | disposition home or self-care (01) | DRG 871 ==
LOC: ER 13:48 → MEDSURG 14:34 → CSU 03-13 14:50
PROVIDERS: Admitting Provider Family Medicine; Emergency Provider Emergency Medicine; Family Provider Family Medicine; Visit Provider Internal Medicine
DX: A41.9 Sepsis, unspecified organism (principal); R65.21 Severe sepsis with septic shock; N30.00 Acute cystitis without hematuria; N17.9 Acute kidney failure, unspecified; I48.20 Chronic atrial fibrillation, unspecified; G93.40 Encephalopathy, unspecified; Z86.19 Personal history of other infectious and parasitic diseases; F03.90 Unspecified dementia, unspecified severity, without behavioral disturbance, psychotic disturbance, mood disturbance, and anxiety; N40.0 Benign prostatic hyperplasia without lower urinary tract symptoms; J44.9 Chronic obstructive pulmonary disease, unspecified; Z86.73 Personal history of transient ischemic attack (TIA), and cerebral infarction without residual deficits; I10 Essential (primary) hypertension; E78.5 Hyperlipidemia, unspecified; G47.33 Obstructive sleep apnea (adult) (pediatric); C61 Malignant neoplasm of prostate; Z92.3 Personal history of irradiation; I95.9 Hypotension, unspecified; E86.0 Dehydration; Z79.818 Long term (current) use of other agents affecting estrogen receptors and estrogen levels; H10.409 Unspecified chronic conjunctivitis, unspecified eye; Z79.82 Long term (current) use of aspirin; Z79.891 Long term (current) use of opiate analgesic; Z66 Do not resuscitate; L30.4 Erythema intertrigo
CPT/HCPCS: 12345; 36415; 36600; 51702; 71045; 80048; 80053; 80202; 81001; 82805; 83605; 83735; 83880; 85025; 85610; 87040; 87077; 87086; 87186; 87426; 87641; 92526; 92610; 93005; 94640; 94660; 94669; 96372; 96375; 97161; 97530; 99283; J0131; J0282; J0456; J0692; J0743; J1650; J1940; J2543; J3370; J3475; J3480; J3490; J7030; J7050; J7060; J7799

== ENCOUNTER 2021-07-08 00:10 | Inpatient (IN) | payer MEDICARE, BC, SELFPAY ==
[2021-07-08] VITALS (79 sets, daily range): BP systolic 90–165; BP diastolic 47–84; PULSE 55–139; RESP 16–91; TEMP 36.3–37.1; O2SAT 83–96
--- NOTE | 2021-07-08 00:21 | ECG_ITS ---
[facility] Test Date: 2021-07-08 Pat Name: Jose Mancuso Department: Room: Gender: Male Rn Telephone Triage: : 1935 Requested By: Hadley Garrison Order Number: [id number] Kwaku MD: Gloria Zavala M.D. Measurements Intervals [place] Rate: 111 P: 3 MS: 173 QRS: 258 QRSD: 145 T: 50 QT: 365 QTc: 497 Interpretive Statements SINUS TACHYCARDIA RIGHT AXIS DEVIATION [QRS AXIS > 100] RIGHT BUNDLE BRANCH BLOCK [120+ ms QRS DURATION, UPRIGHT V1, 40+ ms S IN I/aVL/V4/V5/V6] ANTEROSEPTAL MYOCARDIAL INFARCTION , OF INDETERMINATE AGE [40+ ms Q WAVE IN V1-V4] Compared to ECG 03/13/2020 13:44:35 Supraventricular tachycardia no longer present Myocardial infarct finding still present Electronically Signed On 07-08-2021 12:06:29 MACHINE HOSE CUTTER by Gloria Zavala M.D. [id number]
--- NOTE | 2021-07-08 00:21 | XRR_ITS ---
PROCEDURE INFORMATION: Exam: XR Chest Exam date and time: 07/08/2021 12:21 AM Age: 86 years old Clinical indication: Fever; Additional info: Fever, AMS TECHNIQUE: Imaging protocol: XR of the chest. Views: 1 view. COMPARISON: CR XR chest 1V portable [id number] 03/18/2020 3:22 PM FINDINGS: Lungs: No CHF/pulmonary edema. Poor inspiration somewhat limits evaluation, especially of the lung bases. Mild lower lung opacities may represent represent atelectasis, pneumonitis not excluded. Please correlate clinically. Findings appear somewhat less prominent on the left when compared with the prior exam. Visible lungs otherwise appear essentially clear. Pleural spaces: No visible pneumothorax. No definite pleural fluid. Heart/Mediastinum: Mild cardiomegaly, essentially stable. Vasculature: Moderate aortic tortuosity, not significantly changed. Bones/joints: No significant acute finding. XR/XR chest 1V portable [id number] IMPRESSION: 1. Mild lower lung opacities may represent represent atelectasis, and/or pneumonitis. 2. Other findings discussed above.
--- NOTE | 2021-07-08 00:21 | CTR_ITS ---
PROCEDURE INFORMATION: Exam: CT Head Without Contrast Exam date and time: 07/08/2021 12:21 AM Age: 86 years old Clinical indication: Altered mental status/memory loss; Additional info: AMS TECHNIQUE: Imaging protocol: Computed tomography of the head without contrast. Radiation optimization: All CT scans at this facility use at least one of these dose optimization techniques: automated exposure control; mA and/or kV adjustment per patient size (includes targeted exams where dose is matched to clinical indication); or iterative reconstruction. COMPARISON: CT head wo con* [id number] 02/23/2020 7:54 AM RADIATION DOSE METRICS: Total DLP (mGy-cm): 961.23 FINDINGS: Brain: No acute intracranial hemorrhage or mass effect. There is decreased attenuation in the periventricular white matter, likely from microvascular disease. No definite acute infarct by CT. MRI could be more sensitive/specific for detection, as clinically directed. Subtle 7 x 11 mm area of slightly higher attenuation again seen in the right frontal region, not significantly changed from the 2019 comparison exam. Therefore this does not represent acute hemorrhage, and likely represents some focal nonspecific calcification. Cerebral ventricles: Ventricle size is normal for age. Paranasal sinuses: Moderate mucosal thickening/opacity in the ethmoid and right frontal sinuses. Moderate mucosal thickening in the maxillary sinuses and right aspect of the sphenoid sinus. These findings are new in the interval and could represent acute sinusitis. Please correlate clinically. Mastoid air cells: No significant acute finding. Vasculature: Vascular calcifications in the internal carotid and vertebral basilar systems. Bones/joints: No definite acute skull fracture. Soft tissues: No significant acute finding. CT/CT head wo con* [id number] IMPRESSION: 1. No acute intracranial hemorrhage or mass effect. 2. Changes of microvascular disease. 3. No definite acute infarct by CT, see above. 4. Other findings discussed above.
[2021-07-08 00:55] LABS: Basophils # 0.1 10^3/uL (0.0-0.1); Basophils % 0.5 %; Eosinophils % 0.1 %; Hematocrit 48.7 % (42.0-52.0); Hemoglobin 15.5 g/dL (11.7-16.6); Lymphocytes # 0.9 10^3/uL (0.8-4.8); Lymphocytes % 5.3 %; Mean Corpuscular HGB Conc 31.8 g/dL (30.0-36.0); Mean Corpuscular Hemoglobin 30.5 pg (28.0-34.0); Mean Corpuscular Volume 95.7 fl (80-94); Mean Platelet Volume 10.7 fL (7.4-10.4); Monocytes # 1.1 10^3/uL (0.2-0.9); Monocytes % 6.6 %; Neutrophils # 13.74 10^3/uL (1.8-7.7); Neutrophils % 85.6 %; Nucleated Red Blood Cells % 0 %; Platelet Count 408 10^3/cmm (130-400); Red Blood Count 5.09 10^6/uL (4.1-5.3); Red Cell Distribution Width 13.1 % (12.1-15.1)
[2021-07-08 01:07] LABS: INR 1.38 (0.8-1.2)
[2021-07-08 01:11] LABS: Lactate (Lactic Acid level) 1.4 mmol/L (0.5-2.2)
[2021-07-08 01:24] LABS: ABG PCO2 39.3 mmHg (35-45); ABG PH Result 7.46 (7.35-7.45); Arterial Blood Gas Hematocrit 48.6 % (42-52); Base Excess ABG 4.2 mmol/L (-2.0-2.0); Blood Gas Allen Test Pos; Blood Gas Sample Site Radial, right; Blood Gas Sample Type Arterial; HCO3 ABG 28.2 mmol/L (22-26); Oxygen Device NRB; PO2 ABG 61.8 mmHg (80.0-100.0)
[2021-07-08 01:30] LABS: Troponin(5th) Baseline 110 ng/L (0-15)
[2021-07-08 01:59] LABS: Albumin Level 3.6 g/dL (3.5-5.2); Alkaline Phosphatase 79 IU/L (40-130); Blood Urea Nitrogen 47 mg/dL (8-23); Calcium 8.7 mg/dL (8.5-10.5); Carbon Dioxide 26 mmol/L (22-29); Chloride 111 mmol/L (98-107); Globulin 4.5 g/dL (1.3-4.6); Glucose 192 mg/dL (65-115); Osmolality Calculated 331 mOsm/kg (285-295); Sodium 152 mmol/L (136-145); Total Bilirubin 0.5 mg/dL (0.15-1.2); Total Protein 8.1 g/dL (6.6-8.7)
--- NOTE | 2021-07-08 02:21 | ECG_ITS ---
[facility] Test Date: 2021-07-08 Pat Name: Jose Mancuso Department: Room: Gender: Male Property And Supply Officer: : 1935 Requested By: Hadley Garrison Order Number: [id number] Ames MD: Gloria Zavala M.D. Measurements Intervals [place] Rate: 101 P: -6 MN: 182 QRS: -88 QRSD: 141 T: 48 QT: 384 QTc: 499 Interpretive Statements SINUS TACHYCARDIA RIGHT BUNDLE BRANCH BLOCK LEFT ANTERIOR FASCICULAR BLOCK PROBABLE ANTEROSEPTAL MYOCARDIAL INFARCTION , OF INDETERMINATE AGE Compared to ECG 07/08/2021 00:18:04 Left anterior fascicular block now present Right-axis deviation no longer present Myocardial infarct finding still present Electronically Signed On 07-08-2021 12:16:48 TABLE TENDER SLUDGE by Gloria Zavala M.D. [email or web address] E-[email or web address] gro[id number]
[2021-07-08 02:27] LABS: Alanine Aminotransferase 140 U/L (0-41); Anion Gap 19.8 (5-19); Aspartate Amino Transferase 100 U/L (0-40); Potassium 4.8 mmol/L (3.5-5.1)
--- NOTE | 2021-07-08 02:55 | ED_ITS ---
HPI - SOB/Dyspnea General: Chief Complaint: Shortness of Breath/Dyspnea Stated Complaint: AMS Time Seen by Provider: 07/08/21 00:17 Source: EMS and other History of Present Illness: HPI Narrative: 86-year-old male intermediate patient with a history of dementia. [facility] staff noted increasing shortness of breath, with decreasing mentation. They note that for the past several hours he has not been responsive really at all. He seems to be awake, but is not interactive. His oxygen saturation was low despite oxygen. No history of fever. As the patient is nonverbal, other information is limited. MD elicited complaint: shortness of breath Pertinent past history: COPD Onset (ago): hour(s) Timing: constant and progressively worsening Severity: moderate Relieving factors: nothing Known history of: COPD and congestive heart failure Associated symptoms: Deny fever(s) or vomiting Treatment prior to arrival: oxygen Related Data: Home oxygen amount: as needed at night Review of Systems General: Reports: ROS unobtainable due to medical condition and ROS unobtainable due to mental status Const: Denies: fever(s) Resp: Reports: dyspnea GI: Denies: vomiting PFSH ED PFSH: Medical History (Updated 07/08/21 @ 03:07 by Hadley Marquez DO) A-fib Acute cystitis Acute encephalopathy Acute kidney injury BPH (benign prostatic hyperplasia) COPD (chronic obstructive pulmonary disease) CVA (cerebral vascular accident) Dehydration Dementia History of subarachnoid hemorrhage following trauma HTN (hypertension) Hyperlipidemia Obstructive sleep apnea Prostate cancer -s/p radiation therapy (completed 03/2018) Septic shock Surgical History History of appendectomy Family History Family/Other No problems noted. Father Cancer prostate cancer Social History (Updated 02/23/20 @ 11:56 by Jessica Vaca DO) Housing: Custodial Physical Exam Const: GENERAL APPEARANCE: in distress, ill appearing and frail appearing HENMT: COMMON NORMALS: normocephalic, atraumatic and Normal external nose present HEAD & SCALP: normocephalic and atraumatic FACE & SINUS: normal facial exam NOSE: Normal external nose present Eye: COMMON NORMALS: EOMs intact bilaterally Chest: COMMONS NORMALS: normal inspection of the chest Resp: EFFORT & INSPECTION: Yes tachypneic, Yes respiratory distress and Yes decreased respiratory effort AUSCULTATION: rhonchi and diminished lung sounds Cardio: COMMON NORMALS: regular rhythm RATE: tachycardic RHYTHM: regular rhythm GI: COMMON NORMALS: Normal to inspection, nondistended, normoactive bowel sounds present and Soft to palpation PALPATION: Yes Soft to palpation Neuro: RO[place]ARY COMA SCALE: document GCS findings Rose[place] coma scale eye opening: Spontaneous [place] coma scale verbal response: None [place] coma scale motor response: Localising [place] coma scale total score: 10 Course Consultations: Consultation #1: sunil Time: 03:04 Vital Signs: Vital signs: Vital Signs Pulse Rate 102 H 07/08/21 01:54 Respiratory Rate 16 07/08/21 01:54 Blood Pressure 112/67 07/08/21 01:54 Pulse Oximetry 96 07/08/21 01:54 MDM - SOB/Dyspnea Medical Decision Making 86-year-old patient from a intermediate. This is a DNR patient. He presents with mental status decline, and worsening shortness of breath over several hours. His white blood cell count is 16. He had reportedly tested negative for Covid and influenza in the intermediate. His x-ray shows bilateral pneumonitis. His sodium is 152. His creatinine is 1.3. He is started on vancomycin and Zosyn in the ER. Covid PCR is pending here. He was placed on BiPAP on arrival with improvement in his oxygenation, but no significant improvement in his mentation yet. His PCO2 is actually low on blood gas testing. He will be admitted. Bladder scan shows no urine in the bladder. Patient does have a history of heart failure, and is at risk for fluid overload. Full 30 mL/kg bolus will not be given, the patient is hypertensive also. 1 L bolus ordered. Hospitalist agrees to admission Lab Data : 07/08/21 00:45 07/08/21 00:45 Labs/Radiology: Radiology Impressions Chest X-Ray 07/08/21 00:21 IMPRESSION: 1. Mild lower lung opacities may represent represent atelectasis, and/or pneumonitis. 2. Other findings discussed above. Head CT 07/08/21 00:21 IMPRESSION: 1. No acute intracranial hemorrhage or mass effect. 2. Changes of microvascular disease. 3. No definite acute infarct by CT, see above. 4. Other findings discussed above. Laboratory Results WBC 16.0 10^3/uL (4.0-10.0) H 07/08/21 00:45 RBC 5.09 10^6/uL (4.1-5.3) 07/08/21 00:45 Hgb 15.5 g/dL (11.7-16.6) 07/08/21 00:45 Hct 48.7 % (42.0-52.0) 07/08/21 00:45 MCV 95.7 fl (80-94) H 07/08/21 00:45 MCH 30.5 pg (28.0-34.0) 07/08/21 00:45 MCHC 31.8 g/dL (30.0-36.0) 07/08/21 00:45 RDW 13.1 % (12.1-15.1) 07/08/21 00:45 Plt Count 408 10^3/cmm (130-400) H 07/08/21 00:45 MPV 10.7 fL (7.4-10.4) H 07/08/21 00:45 Neut % (Auto) 85.6 % 07/08/21 00:45 Lymph % (Auto) 5.3 % 07/08/21 00:45 [place] % (Auto) 6.6 % 07/08/21 00:45 Eos % (Auto) 0.1 % 07/08/21 00:45 Baso % (Auto) 0.5 % 07/08/21 00:45 Neut # (Auto) 13.74 10^3/uL (1.8-7.7) H 07/08/21 00:45 Lymph # (Auto) 0.9 10^3/uL (0.8-4.8) 07/08/21 00:45 [place] # (Auto) 1.1 10^3/uL (0.2-0.9) H 07/08/21 00:45 Eos # (Auto) 0.0 10^3/uL (0.0-0.8) 07/08/21 00:45 Baso # (Auto) 0.1 10^3/uL (0.0-0.1) 07/08/21 00:45 Nucleated RBC % (auto) 0 % 07/08/21 00:45 Nucleated RBCs # 0.0 /100WBC 07/08/21 00:45 PT 17.30 SECONDS (12.1-14.9) H 07/08/21 00:45 INR 1.38 (0.8-1.2) H 07/08/21 00:45 APTT 34.0 SECONDS (23.9-36.7) 03 00:45 Specimen Type Arterial 07/08/21 00:46 Sample Site Radial, right 07/08/21 00:46 ABG pH 7.46 (7.35-7.45) H 07/08/21 00:46 ABG pCO2 39.3 mmHg (35-45) 07/08/21 00:46 ABG pO2 61.8 mmHg (80.0-100.0) L 07/08/21 00:46 ABG HCO3 28.2 mmol/L (22-26) H 07/08/21 00:46 ABG Base Excess 4.2 mmol/L (-2.0-2.0) H 07/08/21 00:46 Saroj Test Pos 07/08/21 00:46 Hematocrit 48.6 % (42-52) 07/08/21 00:46 O2 Delivery Device Nrb 07/08/21 00:46 O2 Liters/Min 15.0 % 07/08/21 00:46 FiO2 100.0 % 07/08/21 00:46 Patient Access Associate ID Hensa 07/08/21 00:46 Sodium 152 mmol/L (136-145) H 07/08/21 00:45 Potassium 4.8 mmol/L (3.5-5.1) 07/08/21 00:45 Chloride 111 mmol/L (98-107) H 07/08/21 00:45 Carbon Dioxide 26 mmol/L (22-29) 07/08/21 00:45 Anion Gap 19.8 (5-19) H 07/08/21 00:45 BUN 47 mg/dL (8-23) H 07/08/21 00:45 Creatinine 1.3 mg/dL (0.7-1.2) H 07/08/21 00:45 GFR Calculation Not Reportable 07/08/21 00:45 Glucose 192 mg/dL (65-115) H 07/08/21 00:45 Calculated Osmolality 331 mOsm/kg (285-295) H 07/08/21 00:45 Lactate 1.4 mmol/L (0.5-2.2) 07/08/21 00:45 Calcium 8.7 mg/dL (8.5-10.5) 07/08/21 00:45 Total Bilirubin 0.5 mg/dL (0.15-1.2) 07/08/21 00:45 AST 100 U/L (0-40) H 07/08/21 00:45 ALT 140 U/L (0-41) H 07/08/21 00:45 Alkaline Phosphatase 79 IU/L (40-130) 07/08/21 00:45 Troponin T Baseline 110 ng/L (0-15) H* 07/08/21 00:45 C-Reactive Protein 236.0 mg/L (0.0-4.9) H 07/08/21 00:45 NT-Pro-B Natriuret Pep 1263 pg/mL (0-450) H 07/08/21 00:45 Total Protein 8.1 g/dL (6.6-8.7) 07/08/21 00:45 Albumin 3.6 g/dL (3.5-5.2) 07/08/21 00:45 Globulin 4.5 g/dL (1.3-4.6) 07/08/21 00:45 Critical Care Time Critical Care Time: Critical Care Time: Yes Total Critical Care Time: 36 Attestation: This case had a high probability of a clinically significant, sudden, or life threatening deterioration of this patient's condition which required my full and direct attention, intervention and personal management. This is independent of any procedures performed. Discharge Plan Discharge Patient Disposition: Admitted As Inpatient Clinical Impression: Pneumonia Respiratory failure with hypoxia Qualifiers: Chronicity: acute Qualified Code(s): J96.01 - Acute respiratory failure with hypoxia Condition: Stable Coding Level of Care Code ED Welt Butter Hand for Mario Fwd Exam Comprehensive
[2021-07-08 03:00] LABS: NT Pro B Type Natriuretic Pept 1263 pg/mL (0-450)
[2021-07-08] MEDS: piperacillin-tazobactam 4.5 GM in sodium chloride 0.9% (plus) 50 ML IV (03:19)
--- NOTE | 2021-07-08 03:59 | P.HP_ITS ---
Providers/Chief Complaint Chief Complaint: AMS History of Present Illness Patient a 6-year-old male who was transferred to the emergency department when he was found to be encephalopathic and hypoxic. Unfortunately at the time of my encounter with the patient, he is somnolent to stuporous and he is a history of dementia and is unable to provide any information whatsoever. He presents for further evaluation Review of Systems General: Reports: 10 or more systems reviewed and unremarkable except in HPI and below Medications/Allergies Home Medications Medication Instructions Recorded Confirmed Last Taken Type acetaminophen 325 mg tablet 650 mg PO TID PRN 02/23/20 03/12/20 Unknown History (Tylenol) ascorbic acid (vitamin C) 1,000 mg 1 g PO BID 02/23/20 03/12/20 03/11/20 History tablet (Vitamin C) bicalutamide 50 mg tablet 50 mg PO DAILY 02/23/20 03/12/20 03/11/20 History bisacodyl 10 mg rectal suppository 10 mg MD DAILY PRN 02/23/20 03/12/20 Unknown History citalopram 20 mg tablet 20 mg PO DAILY 02/23/20 03/12/20 03/11/20 History donepezil 10 mg tablet 10 mg PO DAILY 02/23/20 03/12/20 03/11/20 History famotidine 20 mg tablet 20 mg PO BID 02/23/20 03/12/20 03/11/20 History furosemide 40 mg tablet 40 mg PO DAILY 02/23/20 03/12/20 03/11/20 History guaifenesin 100 mg/5 mL oral 100 mg PO Q4H PRN 02/23/20 03/12/20 Unknown History liquid (Jossie-Tussin) hydrocodone 5 mg-acetaminophen 325 1 tab PO BID PRN 02/23/20 03/12/20 Unknown History mg tablet ipratropium 0.5 mg-albuterol 3 mg 3 ml INHALATION TID 02/23/20 03/12/20 03/12/20 History (2.5 mg base)/3 mL nebulization soln loratadine 10 mg tablet (Claritin) 10 mg PO DAILY 02/23/20 03/12/20 03/11/20 History lorazepam 0.5 mg tablet 0.5 mg PO TID 02/23/20 03/12/20 03/11/20 History magnesium hydroxide 400 mg/5 mL 400 mg PO DAILY PRN 02/23/20 03/12/20 Unknown History oral suspension (Milk of Magnesia) memantine 10 mg tablet 10 mg PO BID 02/23/20 03/12/20 03/12/20 History methenamine hippurate 1 gram tablet 1 g PO BID 02/23/20 03/12/20 03/11/20 History potassium chloride 10 mEq 10 meq PO DAILY 02/23/20 03/12/20 03/11/20 History capsule,extended release sennosides 8.6 mg-docusate sodium 1 tab-cap PO DAILY 02/23/20 03/12/20 03/11/20 History 50 mg tablet (Senna-S) sodium phosphates 19 gram-7 118 ml MD DAILY PRN 02/23/20 03/12/20 Unknown History gram/118 mL enema (Enema Disposable) trazodone 50 mg tablet 25 mg PO BEDTIME 02/23/20 03/12/20 03/11/20 History ferrous gluconate 324 mg (37.5 mg 324 mg PO BIDWM #30 tab 03/02/20 03/12/20 03/11/20 Rx iron) tablet tiotropium bromide 18 mcg capsule 18 mcg INHALATION 03/02/20 03/12/20 03/11/20 Rx with inhalation device (Spiriva DAILY.RESPIRATORY #14 inh with HandiHaler) zinc gluconate 50 mg tablet 50 mg PO DAILY #30 tab 03/02/20 03/12/20 03/11/20 Rx hydrocodone 5 mg-acetaminophen 325 1 tab PO BID 03/12/20 03/12/20 03/11/20 History mg tablet risperidone 1 mg tablet 1 mg PO TID 03/12/20 03/12/20 03/11/20 History amiodarone 200 mg tablet (Pacerone) 200 mg PO DAILY #30 tab 03/20/20 Unknown Rx apixaban 2.5 mg tablet (Eliquis) 2.5 mg PO BID #60 tab 03/20/20 Unknown Rx Allergies Allergy/AdvReac Type Severity Reaction Status Date / Time No Known Allergies Allergy Verified 02/23/20 07:36 PFSH Acute PFSH: Medical History A-fib Acute cystitis Acute encephalopathy Acute kidney injury BPH (benign prostatic hyperplasia) COPD (chronic obstructive pulmonary disease) CVA (cerebral vascular accident) Dehydration Dementia History of subarachnoid hemorrhage following trauma HTN (hypertension) Hyperlipidemia Obstructive sleep apnea Prostate cancer -s/p radiation therapy (completed 03/2018) Septic shock Surgical History History of appendectomy Family History Family/Other No problems noted. Father Cancer prostate cancer Social History Housing: [facility] Vitals/I&O/Wt Last Vital Signs Pulse 99 07/08/21 03:44 Resp 37 H 07/08/21 03:44 BP 165/84 07/08/21 03:44 Pulse Ox 96 07/08/21 01:54 Physical Exam Const: COMMON NORMALS: no acute distress, average body habitus, patient oriented x3, no limitations, healthy appearing, alert and well nourished HENMT: COMMON NORMALS: normocephalic, atraumatic, hearing grossly normal bilaterally, external ears normal, EAC's normal, TM's normal bilaterally, Normal external nose present, Normal nasal mucous membranes and turbinates present, moist oral mucous membranes, oropharynx normal, dentition normal and gingiva normal HEAD & SCALP: normal to inspection FACE & SINUS: normal facial exam NOSE: Normal external nose present EXTERNAL EAR: Yes external ears normal Eye: COMMON NORMALS: Equal, round and reactive pupils present, EOMs intact bilaterally, conjunctivae normal, no scleral icterus, no papilledema, normal visual fajardo by confrontation and fundi normal bilaterally GENERAL EYE: appearance normal, both eyes and all related structures ALIGNMENT: Yes alignment normal CONJUNCTIVA: Yes conjunctivae normal SCLERA: sclerae normal Neck/C-Spine: COMMON NORMALS: full ROM, no lymphadenopathy, supple, no meningeal signs, no JVD, Thyroid normal and No carotid bruits GENERAL: Yes normal visual inspection THYROID: Thyroid normal CAROTIDS: Yes normal carotid upstroke CERVICAL SPINE: Yes cervical ROM normal Chest: COMMONS NORMALS: normal inspection of the chest, normal palpation of entire chest wall, normal inspection of the breasts and normal palpation of the breasts Resp: COMMON NORMALS: normal respiratory effort, No retractions, No use of accessory muscles, clear to auscultation bilaterally and percussion normal Cardio: COMMON NORMALS: no JVD, regular rate, regular rhythm, S1 normal heart sound present, S2 normal heart sound present, No gallops present (Cardio), No clicks present (Cardio), No murmurs present (Cardio), No rub (Cardio) and Peripheral pulses 2+ throughout PALPATION: normal PMI RATE: regular rate RHYTHM: regular rhythm HEART SOUNDS: S1 normal heart sound present GI: COMMON NORMALS: Normal to inspection, nondistended, normoactive bowel sounds present, Soft to palpation, non-tender, No hepatosplenomegaly present, no masses and no bruits : COMMON NORMALS: Yes no CVA tenderness, Yes normal external exam, Yes Testes normal, Yes scrotum normal, Yes no scrotal swelling and Yes No hernias present Back/Pelvis: COMMON NORMALS: no CVA tenderness, thoracic and lumbar spine normal to inspection, no thoracic nor lumbar tenderness, thoraco-lumbar ROM normal and straight leg raise negative bilaterally THORACIC SPINE/UPPER BACK: Yes normal to inspection Extremity: COMMON NORMALS: normal to inspection, full ROM, capillary refill normal, no joint enlargement, no clubbing, cyanosis or edema, no calf tenderness and no pedal edema Neuro: COMMON NORMALS: patient oriented x3, CN's II-XII intact bilaterally, moves all extremities, no focal motor deficits, no sensory deficits noted, deep tendon reflexes 2+ bilaterally and gait normal SENSORIUM/ORIENTATION: Yes alert CRANIAL NERVES: Yes CN normal except as noted MOTOR EXAM: 5/5 motor strength present throughout DEEP TENDON REFLEXES: Right triceps reflex intensity grade: 2+, Left triceps reflex intensity grade: 2+, Rt Biceps (C5, C6): 2+, Left biceps reflex intensity grade: 2+, Right brachioradialis reflex intensity grade: 2+, Left brachioradialis reflex intensity grade: 2+, Right patellar reflex intensity grade: 2+, Left patellar reflex intensity grade: 2+, Right ankle reflex intensity grade: 2+ and Left ankle reflex intensity grade: 2+ PUPIL EXAM: Normal pupillary reactivity/response: bilateral, Dilated: bilateral, Pinpoint: bilateral, Mid position: bilateral, Sluggish: bilateral and Fixed/non-reactive: bilateral Skin: COMMON NORMALS: no rashes or lesions noted, no wounds, turgor normal, no jaundice, no petechiae and no mottling GENERAL SKIN EXAM: no rashes or lesions noted LESIONS: no lesions Data : 07/08/21 00:45 07/08/21 00:45 A&P Assessment and plan (1) Respiratory failure with hypoxia: Status: Acute Qualifiers: Chronicity: acute Qualified Code(s): J96.01 - Acute respiratory failure with hypoxia Plan Pneumonia. Blood culture ?2 pending. A cephamycin 500 Mill grams IV daily plus Rocephin 1 g IV daily plus DuoNeb every 4 hours Hyponatremia. Monitor sodium levels every 4 hours. IV half-normal saline 75 ML's per hour Constipation Anxiety Seasonal allergies Chronic pain Dementia Elevated troponin, query and STEMI. Will monitor patient on telemetry and checks her cardiac enzymes. Check TSH, free T4, magnesium level. In the morning we will recheck EKG and check fasting lipid panel. Aspirin 81 Mill grams by mouth daily plus Nitropaste 1/2 inch every 6 hours plus metoprolol 12.5 Mill grams by mouth twice a day plus Lipitor 20 Mill grams by mouth daily at bedtime plus IV heparin drip per and STEMI protocol. Echo cardiac pending Depression Prostate cancer, status post radioactive seed implantation. Outpatient follow- up with hematology/oncology and/or urology upon discharge Atrial for ablation. Telemetry monitoring. Amiodarone 200 Mill grams by mouth daily plus IV heparin drip per protocol History of iron deficiency COPD. Cymetra 40 Mill grams IV every 8 hours post DuoNeb every 4 hours GERD. Protonix 40 Mill grams by mouth daily Hyperlipidemia. Check fasting lipid panel. Lipitor 20 Mill grams by mouth daily at bedtime while closely monitoring liver function test Hypertension. Metoprolol 12.5 Mill grams by mouth twice a day plus Nitropaste 1/2 inch every 6 hours Macrocytosis. Check TSH, free T4, B12, foot levels Thrombocytosis. We will monitor platelet count intermittently Coagulopathy. Will monitor PT/INR periodically Acute renal insufficiency. Will monitor creatinine intermittently. IV half- normal saline at 75 ML's per hour Transaminitis. Will monitor LFTs periodically with CMP along with PT/INR History of CVA. Aspirin 81 Mill grams by mouth daily plus Lipitor 20 Mill grams by mouth daily at bedtime Obstructive sleep apnea DVT prophylaxis. IV heparin drip per protocol Attestations Medical Necessity Statement*: The patient's medical stay is medically necessary as witnessed by performance of this H&P Coding Level of Care Code Acute [employer] Liaison Officer for Mario Irizarry Diagnoses Respiratory failure with hypoxia J96.01 Chronicity: acute
[2021-07-08] MEDS: sodium chloride 0.9% 1,000 ML 999 ML IV (04:02)
[2021-07-08] MEDS: vancomycin 1,250 MG/250 ML PIGGYBACK 250 MG IV (04:06)
[2021-07-08 05:16] LABS: INR 1.38 (0.8-1.2)
[2021-07-08 05:18] LABS: Alanine Aminotransferase 126 U/L (0-41); Albumin Level 3.3 g/dL (3.5-5.2); Alkaline Phosphatase 74 IU/L (40-130); Anion Gap 20.9 (5-19); Aspartate Amino Transferase 72 U/L (0-40); Blood Urea Nitrogen 50 mg/dL (8-23); Calcium 8.6 mg/dL (8.5-10.5); Carbon Dioxide 25 mmol/L (22-29); Chloride 111 mmol/L (98-107); Chol HDL Ratio 3.34 mg/dL (1.0-5.00); Cholesterol 107 mg/dL (0-200); Globulin 4.3 g/dL (1.3-4.6); Glucose 188 mg/dL (65-115); HDL Cholesterol 32 mg/dL (60-100); LDL Cholesterol Calculated 61 mg/dL (50-129); LDL HDL Ratio 1.91 RATIO (0.00-3.22); Magnesium 2.4 mg/dL (1.7-2.3); Osmolality Calculated 334 mOsm/kg (285-295); Potassium 3.9 mmol/L (3.5-5.1); Sodium 153 mmol/L (136-145); Total Bilirubin 0.7 mg/dL (0.15-1.2); Total Protein 7.6 g/dL (6.6-8.7); Triglycerides 69 mg/dL (0-150)
[2021-07-08 05:19] LABS: Free T4 Free Thyroxine 1.78 ng/dL (0.82-1.77); Thyroid Stimulating Hormone 1.42 uIU/mL (0.27-4.20)
[2021-07-08 05:36] LABS: Troponin 5 2HR 103.1 ng/L (0-15); Troponin 5 2HR Delta -6.9 ABS# (0-10)
--- NOTE | 2021-07-08 06:21 | ECG_ITS ---
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 Measurements Intervals [place] Rate: 89 P: 22 [place]: 207 QRS: -75 QRSD: 148 T: 38 QT: 437 QTc: 533 Interpretive Statements SINUS RHYTHM RIGHT BUNDLE BRANCH BLOCK [120+ ms QRS DURATION, UPRIGHT V1, 40+ ms S IN I/aVL/V4/V5/V6] LEFT ANTERIOR FASCICULAR BLOCK [QRS AXIS <= -45, QR IN I, RS IN II] ANTEROSEPTAL MYOCARDIAL INFARCTION , OF INDETERMINATE AGE [40+ ms Q WAVE IN V1-V4] WARNING: DATA QUALITY MAY AFFECT INTERPRETATION Compared to ECG 07/08/2021 02:21:46 Sinus tachycardia no longer present Myocardial infarct finding still present Electronically Signed On 07-08-2021 12:15:17 SUPERVISOR IN CIRCUIT TESTING by Gloria Zavala M.D. [email or web address]
[2021-07-08 06:53] LABS: Adenovirus Not Detected (NOT DETECT); Chlamydia Pneumoniae Not Detected (NOT DETECT); Coronavirus 229E,HKU1,NL63,OC4 Not Detected (NOT DETECT); Human Metapneumovirus Not Detected (NOT DETECT); Human Rhinovirus/Enterovirus Not Detected (NOT DETECT); Influenza A Not Detected (NOT DETECT); Influenza A H1 Not Detected (NOT DETECT); Influenza A H1-2009 Not Detected (NOT DETECT); Influenza A H3 Not Detected (NOT DETECT); Influenza B Not Detected (NOT DETECT); Mycoplasma Pneumoniae Not Detected (NOT DETECT); Parainfluenza Virus Type 1 Not Detected (NOT DETECT); Parainfluenza Virus Type 2 Not Detected (NOT DETECT); Parainfluenza Virus Type 3 Not Detected (NOT DETECT); Parainfluenza Virus Type 4 Not Detected (NOT DETECT); Respiratory Syncytial Virus A Not Detected (NOT DETECT); Respiratory Syncytial Virus B Not Detected (NOT DETECT); SARS-COV-2 Not Detected (NOT DETECT)
[2021-07-08 09:22] LABS: Bilirubin Urine Neg (Negative); Blood Urine Neg (Negative); Glucose Urine UA Norm (Normal); Ketones Urine Negative (Negative); Leukocyte Esterase Urine Negative (Negative); Nitrate Urine Negative (Negative); Protein Urine Trace (Negative); Specific Gravity, Urine 1.015 (1.005-1.030); Urine Appearance Cloudy (CLEAR); Urine Color Yellow (Yellow); Urobilinogen Urine Norm (Negative); pH Urine 5 (5-7)
[2021-07-08 09:23] LABS: Add Urine Culture? No; Amorphous Sediment Urine 2+ /hpf; Bacteria Urine 3+ /hpf; Mucus Urine 1+ /hpf; Squamous Epithelial Cell Urine 0-4 /hpf (0-5); WBC Urine 0-4 /hpf (0-5)
--- NOTE | 2021-07-08 09:32 | PC.NURSE ---
Hospitalist @bs, requested pt be back on NC, currently 3L/NC.
--- NOTE | 2021-07-08 10:04 | P.PN_ITS ---
Subjective Subjective: Patient was seen and examined this morning, continues to be minimally verbally responsive, responds to his name. Overnight labs and vitals have been reviewed. Medications: Medication Review Details: Generic Name Dose Route Start Last Admin Trade Name Jay PRN Reason Stop Dose Admin Amiodarone HCl 200 mg 07/08/21 13:44 07/08/21 15:38 Amiodarone 200 M g Tablet PO Not Given DAILY QUENTIN Aspirin 81 mg 07/08/21 13:44 07/08/21 15:38 Aspirin 81 Mg Ec Tablet PO Not Given DAILY QUENTIN Dextrose/Sodium Ch loride 1,000 mls @ 75 ml s/hr 07/08/21 10:30 07/08/21 10:30 Dextrose 5%-Sod Chloride 0.45% IV 75 mls/hr .[id number] QUENTIN Administration Azithromycin 500 m g/ Sodium 250 mls @ 250 mls /hr 07/08/21 13:44 07/08/21 16:03 Chloride IV Infused Q24H QUENTIN Infusion Protocol Ceftriaxone Sodium 1,000 mg/ 50 mls @ 100 mls/ hr 07/08/21 13:44 07/08/21 17:04 Sodium Chloride IV Infused DAILY QUENTIN Infusion Protocol Methylprednisolone Sodium Succinate 40 mg 07/08/21 13:44 07/08/21 14:34 Methylprednisolo ne Sod Succ 40 Mg/ Ml Inj IVP 40 mg Q8H QUENTIN Administration Metoprolol Tartrat e 12.5 mg 07/08/21 13:44 07/08/21 17:04 Metoprolol Tartr ate 25 Mg Tablet PO Not Given BID QUENTIN Nitroglycerin 0.5 inch 07/08/21 13:44 07/08/21 14:37 Nitroglycerin 1 Gm/Inch Oint Pkt TOPICAL 0.5 inch Q6H QUENTIN Administration Pantoprazole Sodiu m 40 mg 07/08/21 13:44 07/08/21 15:[address] 40 Mg Tablet PO Not Given DAILY QUENTIN Vitals/I&O/Wt Last Vital Signs Temp 98.7 F 07/08/21 08:00 Pulse 89 07/08/21 08:00 Resp 22 H 07/08/21 08:00 BP 101/69 07/08/21 08:00 Pulse Ox 92 07/08/21 08:00 07/07/21 07/08/21 07/08/21 22:59 06:59 14:59 Intake Total 300 / 300 1000 / 1000 Balance 300 / 300 1000 / 1000 Physical Exam HENMT: COMMON NORMALS: normocephalic and atraumatic HEAD & SCALP: normocephalic and atraumatic Eye: COMMON NORMALS: no scleral icterus GENERAL EYE: appearance normal, both eyes and all related structures Chest: COMMONS NORMALS: normal inspection of the chest and normal palpation of entire chest wall CHEST: Yes Symmetrical chest wall rise Resp: COMMON NORMALS: normal respiratory effort, No retractions, No use of accessory muscles and clear to auscultation bilaterally EFFORT & INSPECTION: Yes symmetric chest movement AUSCULTATION: clear to auscultation bilaterally OTHER: Diminished Air entry B/L Cardio: COMMON NORMALS: regular rate, regular rhythm, S1 normal heart sound pr esent, S2 normal heart sound present, No gallops present (Cardio), No murmurs present (Cardio), No rub (Cardio) and Peripheral pulses 2+ throughout RATE: regular rate RHYTHM: regular rhythm HEART SOUNDS: S1 normal heart sound present and S2 normal heart sound present PERIPHERAL PULSES: Peripheral pulses 2+ throughout GI: COMMON NORMALS: Normal to inspection, nondistended, normoactive bowel sounds present, Soft to palpation, non-tender, No hepatosplenomegaly present and no masses AUSCULTATION: Yes normoactive bowel sounds PALPATION: Yes Soft to palpation and Yes No hepatosplenomegaly present RECTAL EXAM: Yes deferred Extremity: COMMON NORMALS: no clubbing, cyanosis or edema and no pedal edema Data : 07/08/21 00:45 07/08/21 04:28 Micro: Microbiology 07/08/21 04:28 Blood Culture - Preliminary Blood SPECIMEN COLLECTED 07/08/21 04:26 Blood Culture - Preliminary Blood SPECIMEN COLLECTED A&P Assessment and plan (1) Respiratory failure with hypoxia: Status: Acute Qualifiers: Chronicity: acute Qualified Code(s): J96.01 - Acute respiratory failure with hypoxia Plan 86-year-old male with past medical history of advanced dementia, CVA, A. fib, on Eliquis, hypertension , obstructive sleep apnea , Was brought in from senior living after being found hypoxic. # Hypovolemic hpernatremia: Likely secondary to dehydration secondary to poor oral intake: Admission serum sodium:153 Currently on D5 half NS at 75 cc an hour Continue to monitor BMP Strict intake output charting #Pneumonia X-ray chest: Mild lower lung opacities may represent represent atelectasis, and/or pneumonitis. Patient has cough, elevated WBC, Procalcitonin 0.17 Follow blood culture Sputum Gram stain and culture Urine Legionella antigen Bacterial antigen panel Continue ceftriaxone and azithromycin for now #History of A. fib: Currently in sinus rhythm Heart rate well controlled Continue amiodarone 200 mg p.o. daily Continue telemetry monitoring Continue Eliquis for anticoagulation #Elevated troponin likely type II NSTEMI: Secondary to hypoxia secondary to pneumonia Baseline troponin 110, 2-hour troponin 103 2-hour delta: -6.9 , 6-hour troponin:118 , 6-hour delta : 8.8 Follow 2D echo Continue telemetry monitoring Continue aspirin statin, beta-caio #History of COPD: Continue duo nebs Solu-Medrol 40 IV q12 h Is on antibiotics Continue BiPAP #BERNARD versus BERNARD on CKD: Baseline serum creatinine is unknown Admission serum creatinine is 1.3 Continue to monitor BMP Strict intake output charting Avoid nephrotoxic's Urine electrolytes Possible renal consult #History of CVA: Continue aspirin statin # Advanced Dementia: # Obstructive sleep apnea DVT prophylaxis. On Eliquis Attestations Medical Necessity Statement*: Patient is to be in hospital for management of hpernatremia , pneumonia Time Spent in Patient Care: Greater than 35 minutes Coding Level of Care Code Acute Pay Agent for Mario Fwaltagracia Exam Detailed Diagnoses Respiratory failure with hypoxia J96.01 Chronicity: acute
[2021-07-08 10:15] LABS: Procalcitonin 0.17 ng/mL (0-0.5)
[2021-07-08] MEDS: dextrose 5%-sod chloride 0.45% 1,000 ML 75 ML IV ×2 (10:30→23:06)
[2021-07-08 10:38] LABS: Troponin 5 6HR 118.8 ng/L (0-15); Troponin 5 6HR Delta 8.8 ng/L (0-12)
[2021-07-08 11:35] LABS: Vitamin B12 586 pg/mL (232-1245)
[2021-07-08 11:36] LABS: Folate Level 10.8 ng/mL (4.5-32.2)
--- NOTE | 2021-07-08 13:44 | USCV_ITS ---
Jamee Jose Age: 86 Gender: M : 1935 Exam Date: 07/08/2021 14:27 Ordering Phys: Sharri Freed DO Technologist: Jeanette Laughlin [place] [facility] [place]: ELEVATED TROPONIN BP: 106 / 69 HR: 85 Rhythm: Sinus Technical Quality: Very technically difficult study MEASUREMENTS (Male / Female) Normal Values 2D ECHO LV Diastolic Diameter PLAX 3.0 cm 4.2 - 5.9 / 3.9 - 5.3 cm LV Systolic Diameter PLAX 2.1 cm LV Chamber Size 2.1 cm IVS Diastolic Thickness 1.0 cm 0.6 - 1.0 / 0.6 - 0.9 cm IVS Systolic Thickness 1.3 cm LVPW Diastolic Thickness 1.1 cm 0.6 - 1.0 / 0.6 - 0.9 cm LVPW Systolic Thickness 1.5 cm RV Chamber Size 2.9 cm LVOT Diameter 2.0 cm LV Ejection Fraction 2D Teich 58.8 % LV Ejection Fraction MOD 2C -5.1 % LV Ejection Fraction 2C AL -3.6 % LA Diameter 4.0 cm LA Width 2.4 cm LA Height 4.3 cm RA Width 3.4 cm RA Height 4.7 cm Aorta at Sinotubular Diameter 3.3 cm M-MODE Aortic Annulus Diameter 3.1 cm LA Ao Ratio MM 1.6 MV E Point Septal Separation 0.3 cm DOPPLER AV Peak Velocity 343.5 cm/s LVOT Peak Velocity 129.0 cm/s AV Area Cont Eq vti 1.1 cm squared AV Area Cont Eq pk 1.1 cm squared MV Area PHT 6.5 cm squared Mitral E to A Ratio 0.5 MV E' Velocity 40.0 cm/s Mitral E to MV E' Ratio 11.8 Mitral E to LV E' Lateral Ratio 11.1 Mitral E to LV E' Septal Ratio 12.6 TR Peak Velocity 325.6 cm/s TR Peak Gradient 42.4 mmHg TR Mean Velocity 215.9 cm/s TR Mean Gradient 22.0 mmHg TR Velocity Time Integral 62.1 cm TV Peak E Velocity 74.0 cm/s PV Peak Velocity 53.0 cm/s FINDINGS Left Ventricle Normal left ventricular cavity size. Normal left ventricular systolic function. Left ventricular ejection fraction is estimated at 60 %. No diagnostic regional wall motion normality. Abnormal septal motion consistent with conduction abnormality. Right Ventricle Normal right ventricular size and systolic function. Right ventricular systolic pressure 50 mmHg. Right Atrium Right atrium not well visualized. Left Atrium Left atrium not well visualized. Moderately increased left atrial size. Mitral Valve Severe mitral annular calcification. Aortic Valve Thickened and calcified prosthetic aortic valve. Peak velocity 2.9 m/s, peak gradient 32 mmHg and mean gradient 17 mm Hg. Aortic valve area by continuity question of 1.2 cm squared. 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 No aortic valve regurgitation. Tricuspid Valve Structurally normal tricuspid valve. Trace tricuspid valve regurgitation. Pulmonic Valve Pulmonic valve not well visualized. Pericardium No pericardial effusion. Aorta Aorta not well visualized. CONCLUSIONS 1. This is a technically very difficult study. 2. Normal left ventricular cavity size and systolic function. Left ventricular ejection fraction is estimated at 60 %. No diagnostic regional wall motion normality. Abnormal septal motion consistent with conduction abnormality. 3. Thickened and calcified prosthetic aortic valve. Peak velocity 2.9 m/s, peak gradient 32 mmHg and mean gradient 17 mm Hg. Aortic valve area by continuity question of 1.2 cm squared. 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 Gloria Zavala MD (Electronically Signed) Final Date: 09 July 2021 18:13 S
--- NOTE | 2021-07-08 13:44 | ECG_ITS ---
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 Measurements Intervals [place] Rate: 85 P: 17 [place]: 213 QRS: -74 QRSD: 155 T: 32 QT: 447 QTc: 534 Interpretive Statements SINUS RHYTHM WITH FIRST DEGREE AV BLOCK RIGHT BUNDLE BRANCH BLOCK [120+ ms QRS DURATION, UPRIGHT V1, 40+ ms S IN I/aVL/V4/V5/V6] LEFT ANTERIOR FASCICULAR BLOCK [QRS AXIS <= -45, QR IN I, RS IN II] POSSIBLE ANTERIOR MYOCARDIAL INFARCTION , OF INDETERMINATE AGE [30 ms Q WAVE IN V3/V4, OR R < 0.2 mV IN V4] Compared to ECG 07/08/2021 06:09:35 First degree AV block now present Myocardial infarct finding still present Electronically Signed On 07-09-2021 16:22:43 PRIVACY DIRECTOR by Gloria Zavala M.D. [email or web address].[employer]/store/[id number]
--- NOTE | 2021-07-08 14:00 | PC.NURSE ---
Physician orders to place glaser
[2021-07-08] MEDS: heparin 5,000 unit/mL INJ 1 mL 5000 UNIT SUBCUT (14:37)
[2021-07-08] MEDS: nitroglycerin 1 gm/inch oint Pkt 0.5 INCH TOPICAL (14:37)
[2021-07-08] MEDS: azithromycin 500 MG in sodium chloride 0.9% 250 ML 250 MG IV (14:37)
--- NOTE | 2021-07-08 15:08 | PC.NURSE ---
Spoke with physician regarding PO medications. Patient is not alert enough to take PO meds. Physician is aware.
[2021-07-08] MEDS: cefTRIAXone 1,000 MG in sodium chloride 0.9% (plus) 50 ML 100 MG IV (16:15)
[2021-07-08] MEDS: ipratropium-albuterol 3 mL Neb INHALATION ×2 (20:08→23:11)
[2021-07-08] MEDS: atorvastatin 40 mg Tablet 20 MG PO (20:11)
[2021-07-09] VITALS (17 sets, daily range): BP systolic 87–107; BP diastolic 56–72; PULSE 65–120; RESP 18–33; TEMP 36.2–37.6; O2SAT 90–93; BMI 31.0
[2021-07-09 02:31] LABS: Basophils % 0.3 %; Hemoglobin 13.4 g/dL (11.7-16.6); Lymphocytes # 0.6 10^3/uL (0.8-4.8); Lymphocytes % 5.2 %; Mean Corpuscular HGB Conc 31.2 g/dL (30.0-36.0); Mean Corpuscular Hemoglobin 30.7 pg (28.0-34.0); Mean Corpuscular Volume 98.4 fl (80-94); Mean Platelet Volume 10.8 fL (7.4-10.4); Monocytes # 0.2 10^3/uL (0.2-0.9); Monocytes % 1.8 %; Neutrophils # 10.78 10^3/uL (1.8-7.7); Neutrophils % 90.9 %; Nucleated Red Blood Cells % 0 %; Platelet Count 353 10^3/cmm (130-400); Red Blood Count 4.37 10^6/uL (4.1-5.3); Red Cell Distribution Width 13.2 % (12.1-15.1); White Blood Count 11.9 10^3/uL (4.0-10.0)
[2021-07-09 02:53] LABS: Anion Gap 17.8 (5-19); Blood Urea Nitrogen 55 mg/dL (8-23); Calcium 8.1 mg/dL (8.5-10.5); Carbon Dioxide 23 mmol/L (22-29); Chloride 118 mmol/L (98-107); Glucose 216 mg/dL (65-115); Osmolality Calculated 342 mOsm/kg (285-295); Potassium 3.8 mmol/L (3.5-5.1); Sodium 155 mmol/L (136-145)
[2021-07-09] MEDS: ipratropium-albuterol 3 mL Neb INHALATION ×4 (02:56→23:06)
--- NOTE | 2021-07-09 08:22 | PC.NURSE ---
Patient refused breakfast tray but he did drink his milk and an Ensure shake.
--- NOTE | 2021-07-09 09:27 | FL_ITS ---
WS: [id number] MODIFIED BARIUM SWALLOW TECHNIQUE: Modified barium swallow with speech therapy using multiple consistencies. FLUOROSCOPY TIME: 2.8 minutes. CLINICAL INFORMATION: Oropharyngeal dysphagia COMPARISON: None. FINDINGS: Somewhat limited examination due to patient condition. Multiple consistencies utilized. Delayed oropharyngeal phase with pharyngeal hypotonia. Early spillag e with pooling in the vallecula with residue. Aspiration with thin liquids and penetration with necta r consistencies. No significant aspiration penetration with pudding consistency. FL/FL barium swallow modifd [id number] IMPRESSION: 1. Early spillage with pooling in the vallecula with residue 2. Aspiration with thin liquids and penetration with nectar consistencies 3. Pudding consistency was better tolerated.
[2021-07-09] MEDS: apixaban 5 mg Tablet 2.5 MG PO ×2 (09:38→21:42)
[2021-07-09] MEDS: aspirin 81 mg EC Tablet PO (09:38)
[2021-07-09] MEDS: amiodarone 200 mg Tablet PO (09:38)
[2021-07-09] MEDS: pantoprazole DR 40 mg Tablet PO (09:39)
[2021-07-09] MEDS: cefTRIAXone 1,000 MG in sodium chloride 0.9% (plus) 50 ML 100 MG IV (09:39)
[2021-07-09] MEDS: dextrose 5% 1,000 ML 75 ML IV (09:40)
[2021-07-09 10:41] LABS: Potassium, Radom Urine 71 mmol/L; Urine Creatinine 79 mg/dL (39-259); Urine Random Sodium 34 mmol/L
[2021-07-09 10:57] LABS: Urine Random Chloride < 10 mmol/L
--- NOTE | 2021-07-09 11:05 | PC.CHAP ---
Pastoral Care Encounter/Spiritual Assessment Type of Contact [] Declined basket grader visit [] Patient/Family/Request visit [] Outpatient visit [] Follow-up visit [] Physician referral [] Code/Alert [x] Routine visit [] Staff referral [] Actively dying [x] Patient sleeping [] Family support [] [] Out of room [] Palliative care [] [] Receiving care in room [] Pre-surgical visit [] Trauma [] Long length of stay [] ICU visit [] Other: Relational/Emotional Strength [] Patient feels connected with others/family/visitors/staff [] Distress [] Loneliness/isolation [] Abandonment Spirituality of Patient [] Person of Shahana [] Attends Quaker of their Shahana [] Believes in Prayer [] Reads Bible or Adventism materials [] There are Spiritual issues to be addressed Stock Preparer Interventions [x] Prayer [] Active listening [] Non-anxious presence [] Spiritual/emotional support [] Crisis/trauma care [] Spiritual counseling [] Bereavement support [] Provided bereavement packet [] Provided Bible/devotional materials [] Provided toy/stuffed animal, coloring book to patient or family member [] Provided Communion [] Anointing/[place] [] Salvation [x] Completed spiritual assessment [] Other: Impact on Illness or Injury [] Angry [] Fearful [] Anxious [] Often cries [] Exhaustion [] Unable to work [] Unable to attend shinto [] Unable to walk/stand [] Unable to read [] Unable to drive [] Unable to eat/drink [] Unable to sleep [] Unable to be with family [] Patient intubated [] Other: Summary Time spent with patient
[2021-07-09] MEDS: azithromycin 500 MG in sodium chloride 0.9% 250 ML 250 MG IV (14:58)
--- NOTE | 2021-07-09 15:05 | ECG_ITS ---
[facility] Test Date: 2021-07-09 Pat Name: Jose Mancuso Department: Room: 108 Gender: Male Publishing Director: : 1935 Requested By: Boby Urbano Order Number: [id number] Kwaku MD: Gloria Zavala M.D. Measurements Intervals [place] Rate: 85 P: 8 AL: 199 QRS: -68 QRSD: 149 T: 23 QT: 407 QTc: 486 Interpretive Statements SINUS RHYTHM RIGHT BUNDLE BRANCH BLOCK [120+ ms QRS DURATION, UPRIGHT V1, 40+ ms S IN I/aVL/V4/V5/V6] LEFT ANTERIOR FASCICULAR BLOCK [QRS AXIS <= -45, QR IN I, RS IN II] POSSIBLE ANTERIOR MYOCARDIAL INFARCTION , OF INDETERMINATE AGE [30 ms Q WAVE IN V3/V4, OR R < 0.2 mV IN V4] Compared to ECG 07/08/2021 14:13:31 First degree AV block no longer present Myocardial infarct finding still present Electronically Signed On 07-09-2021 16:09:37 TESTING MACHINE OPERATOR by Gloria Zavala M.D. [email or web address] Brandsselect [facility].[employer]/store/[id number]
--- NOTE | 2021-07-09 16:08 | PM.PN ---
Subjective Subjective: Hospital course, labs appreciated. On examination patient sitting comfortably in bed on 5 L high flow nasal cannula saturating 92%. Patient is nonverbal. He is awake with open eyes, follows in the room but does not follow commands or answer questions. Vitals/I&O/Wt Last Vital Signs Temp 99.7 F H 07/09/21 07:30 Pulse 89 07/09/21 14:39 Resp 19 H 07/09/21 14:38 BP 98/56 07/09/21 11:29 Pulse Ox 91 07/09/21 14:38 07/09/21 07/09/21 07/09/21 06:59 14:59 22:59 Intake Total 945 / 2245 527 / 527 Output Total 800 / 800 250 / 250 Balance 145 / 1445 277 / 277 Weight last 48 hrs Weight 95.254 kg Weight 95.254 kg Physical Exam Const: COMMON NORMALS: no acute distress, average body habitus and healthy appearing EXAM LIMITATIONS: other limitations GENERAL APPEARANCE: cooperative, comfortable and well hydrated ORIENTATION/CONSCIOUSNESS: Yes awake OTHER: Averbal, not following commands, follows in the room HENMT: COMMON NORMALS: normocephalic, atraumatic, EAC's normal, TM's normal bilaterally, Normal external nose present, Normal nasal mucous membranes and turbinates present, moist oral mucous membranes, oropharynx normal, dentition normal and gingiva normal HEAD & SCALP: normal to inspection, normocephalic and atraumatic FACE & SINUS: normal facial exam NOSE: Normal external nose present and Normal nasal mucous membranes and turbinates present EXTERNAL AUDITORY CANAL: EAC's normal TYMPANIC MEMBRANE: TM's normal bilaterally Eye: COMMON NORMALS: Equal, round and reactive pupils present, EOMs intact bilaterally, conjunctivae normal, no scleral icterus, no papilledema, normal visual fajardo by confrontation and fundi normal bilaterally GENERAL EYE: appearance normal, both eyes and all related structures ALIGNMENT: Yes alignment normal CONJUNCTIVA: Yes conjunctivae normal SCLERA: sclerae normal PUPIL: Yes Equal, round and reactive pupils present DIRECT OPHTHALMOSCOPY: Yes no papilledema and Yes fundi normal bilaterally Neck/C-Spine: COMMON NORMALS: full ROM, no lymphadenopathy, supple, no meningeal signs, no JVD, Thyroid normal and No carotid bruits GENERAL: Yes normal visual inspection THYROID: Thyroid normal CAROTIDS: Yes normal carotid upstroke CERVICAL SPINE: Yes cervical ROM normal Chest: COMMONS NORMALS: normal inspection of the chest, normal palpation of entire chest wall, normal inspection of the breasts and normal palpation of the breasts CHEST: Yes Symmetrical chest wall rise Resp: COMMON NORMALS: normal respiratory effort, No retractions, No use of accessory muscles, clear to auscultation bilaterally and percussion normal EFFORT & INSPECTION: Yes symmetric chest movement AUSCULTATION: clear to auscultation bilaterally PERCUSSION: percussion normal OTHER: Diminished Air entry B/L Cardio: COMMON NORMALS: no JVD, regular rate, regular rhythm, S1 normal heart sound present, S2 normal heart sound present, No gallops present (Cardio), No clicks present (Cardio), No murmurs present (Cardio), No rub (Cardio) and Peripheral pulses 2+ throughout PALPATION: normal PMI RATE: regular rate RHYTHM: regular rhythm HEART SOUNDS: S1 normal heart sound present and S2 normal heart sound present PERIPHERAL PULSES: Peripheral pulses 2+ throughout GI: COMMON NORMALS: Normal to inspection, nondistended, normoactive bowel sounds present, Soft to palpation, non-tender, No hepatosplenomegaly present, no masses and no bruits AUSCULTATION: Yes normoactive bowel sounds PALPATION: Yes Soft to palpation and Yes No hepatosplenomegaly present RECTAL EXAM: Yes deferred : COMMON NORMALS: Yes no CVA tenderness, Yes normal external exam, Yes Testes normal, Yes scrotum normal, Yes no scrotal swelling and Yes No hernias present BLADDER/KIDNEY EXAM: Yes no CVA tenderness Back/Pelvis: COMMON NORMALS: no CVA tenderness, thoracic and lumbar spine normal to inspection, no thoracic nor lumbar tenderness, thoraco-lumbar ROM normal and straight leg raise negative bilaterally THORACIC SPINE/UPPER BACK: Yes normal to inspection Extremity: COMMON NORMALS: normal to inspection, full ROM, capillary refill normal, no joint enlargement, no clubbing, cyanosis or edema, no calf tenderness and no pedal edema Neuro: PANTERA COMA SCALE: document GCS findings [place] coma scale eye opening: Spontaneous [place] coma scale verbal response: None [place] coma scale motor response: Localising [place] coma scale total score: 10 COMMON NORMALS: CN's II-XII intact bilaterally, moves all extremities, no focal motor deficits, no sensory deficits noted, deep tendon reflexes 2+ bilaterally and gait normal MENINGEAL SIGNS: Yes no meningeal signs CRANIAL NERVES: Yes CN normal except as noted MOTOR EXAM: 5/5 motor strength present throughout DEEP TENDON REFLEXES: Right triceps reflex intensity grade: 2+, Left triceps reflex intensity grade: 2+, Rt Biceps (C5, C6): 2+, Left biceps reflex intensity grade: 2+, Right brachioradialis reflex intensity grade: 2+, Left brachioradialis reflex intensity grade: 2+, Right patellar reflex intensity grade: 2+, Left patellar reflex intensity grade: 2+, Right ankle reflex intensity grade: 2+ and Left ankle reflex intensity grade: 2+ PUPIL EXAM: Normal pupillary reactivity/response: bilateral, Dilated: bilateral, Pinpoint: bilateral, Mid position: bilateral, Sluggish: bilateral and Fixed/non-reactive: bilateral Skin: COMMON NORMALS: no rashes or lesions noted, no wounds, turgor normal, no jaundice, no petechiae and no mottling GENERAL SKIN EXAM: no rashes or lesions noted and turgor normal LESIONS: no lesions Urinary Catheter Management: Lennon: Cath Placed During This Visit: yes Reason for Continuing Indwelling Catheter: Chronic Indwelling Urinary Catheter on Admission Urinary Catheter Date of Insertion: 07/08/21 Urinary Catheter Time of Insertion: 17:00 Data : 07/09/21 02:05 07/09/21 02:05 Micro: Microbiology 07/08/21 07:02 Legionella Urinary Antigen - Final Unknown Source 07/08/21 07:02 Bacterial Antigens - Final Urine Kidney 07/08/21 04:28 Blood Culture - Preliminary Blood NEGATIVE TO DATE 07/08/21 04:26 Blood Culture - Preliminary Blood NEGATIVE TO DATE A&P Assessment and plan (1) Respiratory failure with hypoxia: Status: Acute Qualifiers: Chronicity: acute Qualified Code(s): J96.01 - Acute respiratory failure with hypoxia Plan # Hypovolemic hpernatremia: Likely secondary to dehydration secondary to poor oral intake: Sodium trending up today. Switch from D5 half NS to D5W at 75 cc/h. Repeat BMP in evening. Check urine lites, urine creatinine. #Pneumonia Procalcitonin mildly elevated on admission. Urine Legionella bacterial antigen negative. Blood cultures so far negative. Sputum culture pending. Cannot rule out aspiration pneumonia. Modified barium swallow, speech evaluation. For now continue with ceftriaxone and azithromycin. Oxygen supplementation keeping saturation over 88%. History of COPD: Mild exacerbation. DuoNebs every 6 hour, budesonide twice daily. Wean down Solu-Medrol to 40 mg IV daily. Will do a quick taper. #History of A. fib: Currently in sinus rhythm Heart rate well controlled Continue amiodarone 200 mg p.o. daily Continue telemetry monitoring Continue Eliquis for anticoagulation Echocardiogram pending. #Elevated troponin likely type II NSTEMI: Secondary to hypoxia secondary to pneumonia #BERNARD versus BERNARD on CKD: Most likely secondary dehydration. Medical reconciliation done for nephrotoxic drugs. Urine studies as above. Continue to monitor BMP daily for now. Continue Lennon catheterization, strict input output charting. #History of CVA: Continue aspirin statin # Advanced Dementia: # Obstructive sleep apnea #Arrhythmia: 1 episode. Check BMP, magnesium, phosphorus. Check EKG for QTC. Eliquis will suffice as DVT prophylaxis. Protonix for PUD prophylaxis. DNR/DNI. Attestations Medical Necessity Statement*: Requires further hospitalization for management of hypernatremia, pneumonia most likely aspiration, dehydration, BERNARD on CKD Time Spent in Patient Care: Greater than 35 minutes Coding Level of Care Code Acute Telephonic Case Manager for Mario Irizarry Diagnoses Respiratory failure with hypoxia J96.01 Chronicity: acute
[2021-07-09 17:35] LABS: Anion Gap 15.8 (5-19); Blood Urea Nitrogen 60 mg/dL (8-23); Calcium 8.8 mg/dL (8.5-10.5); Carbon Dioxide 22 mmol/L (22-29); Chloride 116 mmol/L (98-107); Glucose 266 mg/dL (65-115); Magnesium 2.8 mg/dL (1.7-2.3); Osmolality Calculated 336 mOsm/kg (285-295); Potassium 3.8 mmol/L (3.5-5.1); Sodium 150 mmol/L (136-145)
[2021-07-09] MEDS: trazodone 50 mg Tablet 25 MG PO (21:42)
[2021-07-09] MEDS: atorvastatin 40 mg Tablet 20 MG PO (21:42)
[2021-07-10] VITALS (19 sets, daily range): BP systolic 96–118; BP diastolic 62–77; PULSE 69–88; RESP 16–29; TEMP 36.4–36.6; O2SAT 90–96
[2021-07-10] MEDS: dextrose 5% 1,000 ML 75 ML IV (00:10)
--- NOTE | 2021-07-10 02:55 | PC.NURSE ---
Pt turned with assistance from regulatory affairs spec. Pt now lying in bed watching tv. Pt resp even and non-labored no distress or sob noted. Pt had no c/o pain or discomfort at the present time. Call light in reach. Will cont to monitor.
[2021-07-10] MEDS: ipratropium-albuterol 3 mL Neb INHALATION ×4 (03:39→20:01)
[2021-07-10 04:45] LABS: Basophils % 0.2 %; Hematocrit 41.9 % (42.0-52.0); Hemoglobin 12.8 g/dL (11.7-16.6); Lymphocytes # 1.2 10^3/uL (0.8-4.8); Lymphocytes % 9.4 %; Mean Corpuscular HGB Conc 30.5 g/dL (30.0-36.0); Mean Corpuscular Volume 98.4 fl (80-94); Mean Platelet Volume 11.1 fL (7.4-10.4); Monocytes # 0.6 10^3/uL (0.2-0.9); Monocytes % 4.6 %; Neutrophils # 10.18 10^3/uL (1.8-7.7); Neutrophils % 83.7 %; Nucleated Red Blood Cells % 0 %; Platelet Count 351 10^3/cmm (130-400); Red Blood Count 4.26 10^6/uL (4.1-5.3); Red Cell Distribution Width 13.2 % (12.1-15.1); White Blood Count 12.2 10^3/uL (4.0-10.0)
[2021-07-10 05:01] LABS: Alanine Aminotransferase 161 U/L (0-41); Albumin Level 2.9 g/dL (3.5-5.2); Alkaline Phosphatase 71 IU/L (40-130); Anion Gap 13.6 (5-19); Aspartate Amino Transferase 99 U/L (0-40); Blood Urea Nitrogen 57 mg/dL (8-23); Calcium 8.8 mg/dL (8.5-10.5); Carbon Dioxide 24 mmol/L (22-29); Chloride 118 mmol/L (98-107); Globulin 4.1 g/dL (1.3-4.6); Glucose 180 mg/dL (65-115); Osmolality Calculated 334 mOsm/kg (285-295); Potassium 3.6 mmol/L (3.5-5.1); Sodium 152 mmol/L (136-145); Total Bilirubin 0.3 mg/dL (0.15-1.2)
[2021-07-10] MEDS: FUROsemide 10 mg/mL SDV 2mL 20 MG IVP (06:03)
--- NOTE | 2021-07-10 06:06 | ECG_ITS ---
[facility] Test Date: 2021-07-10 Pat Name: Jose Mancuso Department: Room: 108 Gender: Male Business Travel Consultant: : 1935 Requested By: Boby Urbano Order Number: [id number] Kwaku MD: Pastor Luna M.D. Measurements Intervals [place] Rate: 78 P: 20 [place]: 213 QRS: -72 QRSD: 156 T: 33 QT: 429 QTc: 492 Interpretive Statements SINUS RHYTHM WITH FIRST DEGREE AV BLOCK RIGHT BUNDLE BRANCH BLOCK [120+ ms QRS DURATION, UPRIGHT V1, 40+ ms S IN I/aVL/V4/V5/V6] LEFT ANTERIOR FASCICULAR BLOCK [QRS AXIS <= -45, QR IN I, RS IN II] POSSIBLE ANTERIOR MYOCARDIAL INFARCTION , OF INDETERMINATE AGE [30 ms Q WAVE IN V3/V4, OR R < 0.2 mV IN V4] Compared to ECG 07/09/2021 15:31:42 First degree AV block now present Myocardial infarct finding still present Electronically Signed On 07-10-2021 17:34:27 SIEBEL CONSULTANT by Pastor Luna M.D. [email or web address]/[id number]
[2021-07-10 06:29] LABS: Troponin(5th) Baseline 51 ng/L (0-15)
[2021-07-10 06:33] LABS: Magnesium 2.8 mg/dL (1.7-2.3)
--- NOTE | 2021-07-10 06:38 | ECG_ITS ---
[facility] Test Date: 2021-07-10 Pat Name: Jose Mancuso Department: Room: 108 Gender: Male Battery Container Inspector: : 1935 Requested By: Lillian Newell Order Number: [id number] Kwaku MD: Pastor Luna M.D. Measurements Intervals [place] Rate: 68 P: 49 [place]: 224 QRS: -73 QRSD: 170 T: 9 QT: 456 QTc: 488 Interpretive Statements SINUS RHYTHM WITH FIRST DEGREE AV BLOCK RIGHT BUNDLE BRANCH BLOCK [120+ ms QRS DURATION, UPRIGHT V1, 40+ ms S IN I/aVL/V4/V5/V6] LEFT ANTERIOR FASCICULAR BLOCK [QRS AXIS <= -45, QR IN I, RS IN II] POSSIBLE ANTERIOR MYOCARDIAL INFARCTION , OF INDETERMINATE AGE [30 ms Q WAVE IN V3/V4, OR R < 0.2 mV IN V4] Compared to ECG 07/10/2021 05:43:28 No significant changes Electronically Signed On 07-10-2021 17:34:15 DIRECTOR OF REVENUE CYCLE MANAGEMENT by Pastor Luna M.D. [id number]
[2021-07-10 06:52] LABS: Troponin 5 2HR 55.64 ng/L (0-15)
[2021-07-10 06:53] LABS: Troponin 5 2HR Delta 4.64 ABS# (0-10)
--- NOTE | 2021-07-10 07:53 | W.PM.EVENTAC ---
Event Note Event Note: V tach Event Notes Attestations Time Spent in Patient Care: Patient developed V tach this morning lasting for approximately 3 min between 5:37 to 5:40AM for which rapid response was called. Patient awake, non verbal at baseline, inconsistently shakes head yes and no to simple questions. BP 108/65mmhg, saturation 92% on 7lpm NC (has been on 5lpm yesterday). Amiodarone 150mg IV bolus given following which he converted back into sinus rhythm. No acute ST-T wave changes. This am K at 3.6, supplementation ordered with 40 iv KCL to target level of 4.0. Mag at 3.8. Baseline trop at 51, down from 110 upon admission. At end of rapid response patient resting comfortably. Chest with B/L crackles, IVF stopped, given 20mg IV lasix. Started on amiodarone infusion @1mg/min, po amiodarone held- per yesterday's Ba swallow patient was noted to be aspirating. Son Micah Mancuso updated by me of acute events. Patient's Rubina Mancuso was called earlier by RN at ~6AM with acute events however son informs me that patient's has dementia and not in a capacity to make decisions anymore. Requests that she be taken off the chart and all updates be provided to son.
[2021-07-10] MEDS: cefTRIAXone 1,000 MG in sodium chloride 0.9% (plus) 50 ML 100 MG IV (08:25)
[2021-07-10] MEDS: lidocaine 1% 5 ML in potassium chloride premix 100 ML 25 ML IV (08:31)
--- NOTE | 2021-07-10 08:38 | ECG_ITS ---
[facility] Test Date: 2021-07-10 Pat Name: Jose Mancuso Department: Room: 108 Gender: Male Child And Adolescent Therapist: : 1935 Requested By: Lillian Newell Order Number: [id number] Kwaku MD: Gloria Zavala M.D. Measurements Intervals [place] Rate: 71 P: 4 IN: 190 QRS: -76 QRSD: 174 T: 32 QT: 445 QTc: 484 Interpretive Statements SINUS RHYTHM RIGHT BUNDLE BRANCH BLOCK [120+ ms QRS DURATION, UPRIGHT V1, 40+ ms S IN I/aVL/V4/V5/V6] LEFT ANTERIOR FASCICULAR BLOCK [QRS AXIS <= -45, QR IN I, RS IN II] POSSIBLE ANTERIOR MYOCARDIAL INFARCTION , OF INDETERMINATE AGE [30 ms Q WAVE IN V3/V4, OR R < 0.2 mV IN V4] Compared to ECG 07/10/2021 06:26:15 First degree AV block no longer present Myocardial infarct finding still present Electronically Signed On 07-10-2021 8:01:39 MANGLE OPERATOR [employer]ARMENTS by Gloria Zavala M.D. [id number]
[2021-07-10] MEDS: apixaban 5 mg Tablet 2.5 MG PO ×2 (08:39→22:05)
[2021-07-10] MEDS: pantoprazole DR 40 mg Tablet PO (08:40)
[2021-07-10] MEDS: aspirin 81 mg EC Tablet PO (08:40)
[2021-07-10 11:15] LABS: Troponin 5 6HR 57.65 ng/L (0-15); Troponin 5 6HR Delta 6.65 ng/L (0-12)
--- NOTE | 2021-07-10 12:38 | ECG_ITS ---
[facility] Test Date: 2021-07-10 Pat Name: Jose Mancuso Department: Room: 108 Gender: Male Hearing Aid Assistant: : 1935 Requested By: Lillian Newell Order Number: [id number] Kwaku MD: Pastor Luna M.D. Measurements Intervals [place] Rate: 77 P: -11 TX: 198 QRS: -79 QRSD: 155 T: 7 QT: 437 QTc: 495 Interpretive Statements SINUS RHYTHM RIGHT BUNDLE BRANCH BLOCK [120+ ms QRS DURATION, UPRIGHT V1, 40+ ms S IN I/aVL/V4/V5/V6] LEFT ANTERIOR FASCICULAR BLOCK [QRS AXIS <= -45, QR IN I, RS IN II] PROBABLE ANTEROSEPTAL MYOCARDIAL INFARCTION , OF INDETERMINATE AGE [35 ms Q WAVE IN V1-V4] Compared to ECG 07/10/2021 07:20:32 No significant changes Electronically Signed On 07-10-2021 17:37:34 BOBBIN TRUCKER by Pastor Luna M.D. [id number]
[2021-07-10] MEDS: azithromycin 500 MG in sodium chloride 0.9% 250 ML 250 MG IV (15:08)
--- NOTE | 2021-07-10 15:52 | P.PN_ITS ---
Subjective Subjective: Overnight patient had an episode of VT for around 1 minute for which he received amiodarone bolus and later started on amiodarone drip. During the event patient remained hemodynamically stable. Today morning on examination patient is awake and alert, able to follow simple commands but remains averbal. On 3 L saturating 94%. Afebrile Vitals/I&O/Wt Last Vital Signs Temp 97.8 F 07/10/21 15:14 Pulse 75 07/10/21 15:17 Resp 25 H 07/10/21 15:14 BP 110/69 07/10/21 15:14 Pulse Ox 96 07/10/21 15:14 07/10/21 07/10/21 07/10/21 06:59 14:59 22:59 Intake Total 1000 / 1777 1473.75 / 1473.75 Output Total 200 / 1200 1150 / 1150 Balance 800 / 577 323.75 / 323.75 Weight last 48 hrs Weight 95.254 kg Weight 95.254 kg Physical Exam Const: COMMON NORMALS: no acute distress, average body habitus and healthy appearing EXAM LIMITATIONS: other limitations GENERAL APPEARANCE: cooperative, comfortable and well hydrated ORIENTATION/CONSCIOUSNESS: Yes awake OTHER: Averbal, today follow simple command of opening mouth when asked for, follows in the room HENMT: COMMON NORMALS: normocephalic, atraumatic, EAC's normal, TM's normal bilaterally, Normal external nose present, Normal nasal mucous membranes and turbinates present, moist oral mucous membranes, oropharynx normal, dentition normal and gingiva normal HEAD & SCALP: normal to inspection, normocephalic and atraumatic FACE & SINUS: normal facial exam NOSE: Normal external nose present and Normal nasal mucous membranes and turbinates present EXTERNAL AUDITORY CANAL: EAC's normal TYMPANIC MEMBRANE: TM's normal bilaterally Eye: COMMON NORMALS: Equal, round and reactive pupils present, EOMs intact bilaterally, conjunctivae normal, no scleral icterus, no papilledema, normal visual fajardo by confrontation and fundi normal bilaterally GENERAL EYE: appearance normal, both eyes and all related structures ALIGNMENT: Yes alignment normal CONJUNCTIVA: Yes conjunctivae normal SCLERA: sclerae normal PUPIL: Yes Equal, round and reactive pupils present DIRECT OPHTHALMOSCOPY: Yes no papilledema and Yes fundi normal bilaterally Neck/C-Spine: COMMON NORMALS: full ROM, no lymphadenopathy, supple, no meningeal signs, no JVD, Thyroid normal and No carotid bruits GENERAL: Yes normal visual inspection THYROID: Thyroid normal CAROTIDS: Yes normal carotid upstroke CERVICAL SPINE: Yes cervical ROM normal Chest: COMMONS NORMALS: normal inspection of the chest, normal palpation of entire chest wall, normal inspection of the breasts and normal palpation of the breasts CHEST: Yes Symmetrical chest wall rise Resp: COMMON NORMALS: normal respiratory effort, No retractions, No use of accessory muscles, clear to auscultation bilaterally and percussion normal EFFORT & INSPECTION: Yes symmetric chest movement AUSCULTATION: clear to auscultation bilaterally PERCUSSION: percussion normal OTHER: Diminished Air entry B/L Cardio: COMMON NORMALS: no JVD, regular rate, regular rhythm, S1 normal heart sound present, S2 normal heart sound present, No gallops present (Cardio), No clicks present (Cardio), No murmurs present (Cardio), No rub (Cardio) and Peripheral pulses 2+ throughout PALPATION: normal PMI RATE: regular rate RHYTHM: regular rhythm HEART SOUNDS: S1 normal heart sound present and S2 normal heart sound present PERIPHERAL PULSES: Peripheral pulses 2+ throughout GI: COMMON NORMALS: Normal to inspection, nondistended, normoactive bowel sounds present, Soft to palpation, non-tender, No hepatosplenomegaly present, no masses and no bruits AUSCULTATION: Yes normoactive bowel sounds PALPATION: Yes Soft to palpation and Yes No hepatosplenomegaly present RECTAL EXAM: Yes deferred : COMMON NORMALS: Yes no CVA tenderness, Yes normal external exam, Yes Testes normal, Yes scrotum normal, Yes no scrotal swelling and Yes No hernias present BLADDER/KIDNEY EXAM: Yes no CVA tenderness Back/Pelvis: COMMON NORMALS: no CVA tenderness, thoracic and lumbar spine normal to inspection, no thoracic nor lumbar tenderness, thoraco-lumbar ROM normal and straight leg raise negative bilaterally THORACIC SPINE/UPPER BACK: Yes normal to inspection Extremity: COMMON NORMALS: normal to inspection, full ROM, capillary refill normal, no joint enlargement, no clubbing, cyanosis or edema, no calf tenderness and no pedal edema Neuro: PANTERA COMA SCALE: document GCS findings Pantera coma scale eye opening: Spontaneous [place] coma scale verbal response: None Pantera coma scale motor response: Localising Pantera coma scale total score: 10 COMMON NORMALS: CN's II-XII intact bilaterally, moves all extremities, no focal motor deficits, no sensory deficits noted, deep tendon reflexes 2+ bilaterally and gait normal MENINGEAL SIGNS: Yes no meningeal signs CRANIAL NERVES: Yes CN normal except as noted MOTOR EXAM: 5/5 motor strength present throughout DEEP TENDON REFLEXES: Right triceps reflex intensity grade: 2+, Left triceps reflex intensity grade: 2+, Rt Biceps (C5, C6): 2+, Left biceps reflex intensity grade: 2+, Right brachioradialis reflex intensity grade: 2+, Left brachioradialis reflex intensity grade: 2+, Right patellar reflex intensity grade: 2+, Left patellar reflex intensity grade: 2+, Right ankle reflex intensity grade: 2+ and Left ankle reflex intensity grade: 2+ PUPIL EXAM: Normal pupillary reactiv ity/response: bilateral, Dilated: bilateral, Pinpoint: bilateral, Mid position: bilateral, Sluggish: bilateral and Fixed/non-reactive: bilateral Skin: COMMON NORMALS: no rashes or lesions noted, no wounds, turgor normal, no jaundice, no petechiae and no mottling GENERAL SKIN EXAM: no rashes or lesions noted and turgor normal LESIONS: no lesions Urinary Catheter Management: Lennon: Cath Placed During This Visit: yes Reason for Continuing Indwelling Catheter: Chronic Indwelling Urinary Catheter on Admission Urinary Catheter Date of Insertion: 07/08/21 Urinary Catheter Time of Insertion: 17:00 Data : 07/10/21 04:18 07/10/21 04:18 Micro: Microbiology 07/08/21 07:02 Legionella Urinary Antigen - Final Unknown Source 07/08/21 07:02 Bacterial Antigens - Final Urine Kidney A&P Assessment and plan (1) Hypernatremia: Status: Acute (2) Arrhythmia: Status: Acute (3) A-fib: Status: Acute (4) Respiratory failure with hypoxia: Status: Acute Qualifiers: Chronicity: acute Qualified Code(s): J96.01 - Acute respiratory failure with hypoxia (5) Pneumonia: Status: Acute (6) Aortic valve replaced: Status: Acute (7) Diastolic heart failure: Status: Acute (8) Advanced dementia: Status: Acute (9) Goals of care, counseling/discussion: Status: Acute Plan # Hypovolemic hypernatremia: Likely secondary to dehydration secondary to poor oral intake: Sodium trending up today. Stop IV fluids secondary to mild congestive heart failure. IV Lasix 20 mg. #Pneumonia: Most likely aspiration pneumonia. Appreciate modified barium swallow results. Patient aspirating on all kinds of consistencies. Procalcitonin mildly elevated on admission. Urine Legionella bacterial antigen negative. Blood cultures so far negative. Sputum culture pending. For now continue with ceftriaxone and azithromycin. Oxygen supplementation keeping saturation over 88%. History of COPD: Mild exacerbation. DuoNebs every 6 hour, budesonide twice daily. Wean down Solu-Medrol to 40 mg IV daily. Will do a quick taper. 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 Stop IV fluids. IV Lasix 20 mg once. #VT #History of A. fib: Keep potassium around 4 magnesium around 3. Troponin level trending down. Cycle appreciated. Could be secondary to severe hypernatremia versus heart failure from IV fluids Currently back in sinus rhythm Continue with amiodarone drip. Amiodarone 200 mg orally daily. Continue telemetry monitoring Continue Eliquis for anticoagulation Echocardiogram results appreciated. #BERNARD versus BERNARD on CKD: Most likely secondary dehydration. Medical reconciliation done for nephrotoxic drugs. Urine studies as above. Continue to monitor BMP daily for now. Continue Lennon catheterization, strict input output charting. #History of CVA: Continue aspirin statin # Advanced Dementia: # Obstructive sleep apnea Eliquis will suffice as DVT prophylaxis. Protonix for PUD prophylaxis. DNR/DNI. Goals of care discussion: Discussed with patient's DPOA Mr. Obrien over the phone. We discussed patient has severe hypernatremia secondary to poor oral intake leading to dehydration. We discussed this is most likely secondary to poor mentation from advanced dementia. Also discussed that patient is at a high risk of aspiration pneumonia with any consistencies. Son states patient has a long history of aspiration in the past as well. Also discussed that her hyper natremia treatment would be with IV fluids and minimal IV fluids currently is causing patient to go into heart failure leading to possible ventricular tachycardia. Discussed for hypernatremia and nutrition patient's safest bet would be for a possible PEG tube. Son states patient advanced directive states that he would not want a PEG tube or any kind of artificial feeding tube. Patient would not want any kind of chest compressions or mechanical ventilation. Given high chance of patient not recovering from hypernatremia because of continuous fluid status and as per goals of care directives further discussions were done. Son states at this point he would want his father to be on hospice versus comfort care back to SNF. Case management alerted. Hospice care. Attestations Medical Necessity Statement*: Requires further hospitalization for management of hospice care secondary to advanced dementia, hypernatremia from poor oral intake, congestive heart failure and arrhythmia on IV hydration while safe discharge planning is sought. Time Spent in Patient Care: Greater than 35 minutes Coding Level of Care Code Acute Database Marketing Manager for [facility] Edie Diagnoses Respiratory failure with hypoxia J96.01 Chronicity: acute Goals of care, counseling/discussion Z71.89 Advanced dementia F03.90 Pneumonia J18.9 A-fib I48.91 Arrhythmia I49.9 Hypernatremia E87.0 Aortic valve replaced Z95.2 Diastolic heart failure I50.30
[2021-07-10] MEDS: atorvastatin 40 mg Tablet 20 MG PO (22:05)
[2021-07-10] MEDS: trazodone 50 mg Tablet 25 MG PO (22:06)
[2021-07-11] VITALS (9 sets, daily range): BP systolic 112–116; BP diastolic 73–84; PULSE 77–85; RESP 20–28; TEMP 36.6–37.7; O2SAT 88–93
[2021-07-11] MEDS: ipratropium-albuterol 3 mL Neb INHALATION ×2 (03:26→07:59)
[2021-07-11 04:46] LABS: Basophils % 0.2 %; Hematocrit 45.5 % (42.0-52.0); Hemoglobin 14.1 g/dL (11.7-16.6); Lymphocytes # 1.1 10^3/uL (0.8-4.8); Lymphocytes % 8.1 %; Mean Corpuscular Volume 96.8 fl (80-94); Monocytes # 0.6 10^3/uL (0.2-0.9); Monocytes % 4.5 %; Neutrophils # 11.21 10^3/uL (1.8-7.7); Neutrophils % 85.3 %; Nucleated Red Blood Cells % 0 %; Platelet Count 389 10^3/cmm (130-400); Red Cell Distribution Width 12.7 % (12.1-15.1); White Blood Count 13.1 10^3/uL (4.0-10.0)
--- NOTE | 2021-07-11 04:59 | PC.NURSE ---
Pt lying in bed hob at 45 degrees. Pt resp even and non-labored no distress noted. Pt had no s/s of pain at the present time. Call light in reach. Will cont to monitor.
[2021-07-11] MEDS: pantoprazole DR 40 mg Tablet PO (08:39)
[2021-07-11] MEDS: aspirin 81 mg EC Tablet PO (08:39)
[2021-07-11] MEDS: apixaban 5 mg Tablet 2.5 MG PO (08:39)
[2021-07-11] MEDS: amiodarone 200 mg Tablet PO (08:40)
[2021-07-11] MEDS: cefTRIAXone 1,000 MG in sodium chloride 0.9% (plus) 50 ML 100 MG IV (08:40)
[2021-07-11] MEDS: docusate sodium 100 mg Capsule PO (08:41)
--- NOTE | 2021-07-11 09:02 | PC.SOCIAL ---
IMM Update pg 2 of [facility] updated and reviewed w/ patients DPOA son Micah over phone. Offered to provide # he declined. Copy placed in chart and copy left in room w/ patient.
--- NOTE | 2021-07-11 10:15 | PM.DCS ---
Discharge Providers Date of Admission: 07/08/21 04:08 Date of Discharge: July 11, 2021 Attending Provider at Admission: Sharri Freed DO Attending Provider at Discharge: Boby Urbano MD Diagnoses at Discharge Discharge Diagnosis (1) Hypernatremia: Status: Acute (2) Arrhythmia: Status: Acute (3) A-fib: Status: Acute (4) Respiratory failure with hypoxia: Status: Acute Qualifiers: Chronicity: acute Qualified Code(s): J96.01 - Acute respiratory failure with hypoxia (5) Pneumonia: Status: Acute (6) Aortic valve replaced: Status: Acute (7) Diastolic heart failure: Status: Acute (8) Advanced dementia: Status: Acute (9) Goals of care, counseling/discussion: Status: Acute Reason for Visit Reason for Visit: [facility] Hospital Course Hospital Course Jose Mancuso is a 84 year old male with a past medical history of dementia, prostate cancer, COPD, history of prior CVA and hypertension, recent COVID-19 found to be hypoxic at the care home. He was admitted for further evaluation. On admission there was a concern for mild aspiration pneumonia for which he was started on broad-spectrum antibiotics and swallow evaluation was done. Swallow evaluation stated that unfortunately patient is at high risk of aspiration with any consistency of diet and was placed on pur?ed diet. On admission he was found also found to be hypernatremic most likely from poor oral intake and dehydration so he was started on D5W fluids while monitoring his fluid status. His sodium levels did not improve much but unfortunately patient went into heart failure and had 1 episode of nonsustained V. tach which was cardioverted with amiodarone bolus after which he was started on amiodarone drip. Otherwise his hospitalization has remained unremarkable. Given all of the above goals of care were discussed with patient since DPOA. We discussed patient has severe hypernatremia secondary to poor oral intake leading to dehydration.? We discussed this is most likely secondary to poor mentation from advanced dementia.? Also discussed that patient is at a high risk of aspiration pneumonia with any consistencies.? Son states patient has a long history of aspiration in the past as well.? Also discussed that her hyper natremia treatment would be with IV fluids and minimal IV fluids currently is causing patient to go into heart failure leading to possible?ventricular?tachycardia. Discussed for hypernatremia and nutrition patient's safest bet would be for a possible PEG tube.? Son states patient advanced directive states that he would not want a PEG tube or any kind of artificial feeding tube.? Patient would not want any kind of chest compressions or mechanical ventilation. Given high chance of patient not recovering from hypernatremia because of continuous fluid status and as per goals of care directives further discussions were done.? Son states at this point he would want his father to be on hospice versus comfort care back to SNF. He has been discharged at comfortable state back to SNF. Physical Exam Const: COMMON NORMALS: no acute distress, average body habitus and healthy appearing EXAM LIMITATIONS: other limitations GENERAL APPEARANCE: cooperative, comfortable and well hydrated ORIENTATION/CONSCIOUSNESS: Yes awake OTHER: Averbal, today follow simple command of opening mouth when asked for, follows in the room HENMT: COMMON NORMALS: normocephalic, atraumatic, EAC's normal, TM's normal bilaterally, Normal external nose present, Normal nasal mucous membranes and turbinates present, moist oral mucous membranes, oropharynx normal, dentition normal and gingiva normal HEAD & SCALP: normal to inspection, normocephalic and atraumatic FACE & SINUS: normal facial exam NOSE: Normal external nose present and Normal nasal mucous membranes and turbinates present EXTERNAL AUDITORY CANAL: EAC's normal TYMPANIC MEMBRANE: TM's normal bilaterally Eye: COMMON NORMALS: Equal, round and reactive pupils present, EOMs intact bilaterally, conjunctivae normal, no scleral icterus, no papilledema, normal visual fajardo by confrontation and fundi normal bilaterally GENERAL EYE: appearance normal, both eyes and all related structures ALIGNMENT: Yes alignment normal CONJUNCTIVA: Yes conjunctivae normal SCLERA: sclerae normal PUPIL: Yes Equal, round and reactive pupils present DIRECT OPHTHALMOSCOPY: Yes no papilledema and Yes fundi normal bilaterally Neck/C-Spine: COMMON NORMALS: full ROM, no lymphadenopathy, supple, no meningeal signs, no JVD, Thyroid normal and No carotid bruits GENERAL: Yes normal visual inspection THYROID: Thyroid normal CAROTIDS: Yes normal carotid upstroke CERVICAL SPINE: Yes cervical ROM normal Chest: COMMONS NORMALS: normal inspection of the chest, normal palpation of entire chest wall, normal inspection of the breasts and normal palpation of the breasts CHEST: Yes Symmetrical chest wall rise Resp: COMMON NORMALS: normal respiratory effort, No retractions, No use of accessory muscles, clear to auscultation bilaterally and percussion normal EFFORT & INSPECTION: Yes symmetric chest movement AUSCULTATION: clear to auscultation bilaterally PERCUSSION: percussion normal OTHER: Diminished Air entry B/L Cardio: COMMON NORMALS: no JVD, regular rate, regular rhythm, S1 normal heart sound present, S2 normal heart sound present, No gallops present (Cardio), No clicks present (Cardio), No murmurs present (Cardio), No rub (Cardio) and Peripheral pulses 2+ throughout PALPATION: normal PMI RATE: regular rate RHYTHM: regular rhythm HEART SOUNDS: S1 normal heart sound present and S2 normal heart sound present PERIPHERAL PULSES: Peripheral pulses 2+ throughout GI: COMMON NORMALS: Normal to inspection, nondistended, normoactive bowel sounds present, Soft to palpation, non-tender, No hepatosplenomegaly present, no masses and no bruits AUSCULTATION: Yes normoactive bowel sounds PALPATION: Yes Soft to palpation and Yes No hepatosplenomegaly present RECTAL EXAM: Yes deferred : COMMON NORMALS: Yes no CVA tenderness, Yes normal external exam, Yes Testes normal, Yes scrotum normal, Yes no scrotal swelling and Yes No hernias present BLADDER/KIDNEY EXAM: Yes no CVA tenderness Back/Pelvis: COMMON NORMALS: no CVA tenderness, thoracic and lumbar spine normal to inspection, no thoracic nor lumbar tenderness, thoraco-lumbar ROM normal and straight leg raise negative bilaterally THORACIC SPINE/UPPER BACK: Yes normal to inspection Extremity: COMMON NORMALS: normal to inspection, full ROM, capillary refill normal, no joint enlargement, no clubbing, cyanosis or edema, no calf tenderness and no pedal edema Neuro: ROSEMARY COMA SCALE: document GCS findings Rosemary coma scale eye opening: Spontaneous [place] coma scale verbal response: None [place] coma scale motor response: Localising Rosemary coma scale total score: 10 COMMON NORMALS: CN's II-XII intact bilaterally, moves all extremities, no focal motor deficits, no sensory deficits noted, deep tendon reflexes 2+ bilaterally and gait normal MENINGEAL SIGNS: Yes no meningeal signs CRANIAL NERVES: Yes CN normal except as noted MOTOR EXAM: 5/5 motor strength present throughout DEEP TENDON REFLEXES: Right triceps reflex intensity grade: 2+, Left triceps reflex intensity grade: 2+, Rt Biceps (C5, C6): 2+, Left biceps reflex intensity grade: 2+, Right brachioradialis reflex intensity grade: 2+, Left brachioradialis reflex intensity grade: 2+, Right patellar reflex intensity grade: 2+, Left patellar reflex intensity grade: 2+, Right ankle reflex intensity grade: 2+ and Left ankle reflex intensity grade: 2+ PUPIL EXAM: Normal pupillary reactivity/response: bilateral, Dilated: bilateral, Pinpoint: bilateral, Mid position: bilateral, Sluggish: bilateral and Fixed/non-reactive: bilateral Skin: COMMON NORMALS: no rashes or lesions noted, no wounds, turgor normal, no jaundice, no petechiae and no mottling GENERAL SKIN EXAM: no rashes or lesions noted and turgor normal LESIONS: no lesions Urinary Catheter Management: Lennon: Cath Placed During This Visit: yes Reason for Continuing Indwelling Catheter: Hospice/Comfort/Palliative Care Urinary Catheter Date of Insertion: 07/08/21 Urinary Catheter Time of Insertion: 17:00 Discharge Data Studies Completed and Pending Completed Studies During Hospitalization Category Date Time Status CT head wo con* [id number] Urgent Cat Scan 07/08/21 00:21 Completed FL barium swallow modifd [id number] Routine Exams 07/09/21 09:27 Completed XR chest 1V portable [id number] Stat Exams 07/08/21 00:21 Completed CV. echo complete* [id number] Routine Ultrasound 07/08/21 13:44 Completed Pending at discharge Category Date Time Status Blood Culture Stat Lab 07/08/21 04:28 Results Radiology Impressions Chest X-Ray 07/08/21 00:21 IMPRESSION: 1. Mild lower lung opacities may represent represent atelectasis, and/or pneumonitis. 2. Other findings discussed above. Head CT 07/08/21 00:21 IMPRESSION: 1. No acute intracranial hemorrhage or mass effect. 2. Changes of microvascular disease. 3. No definite acute infarct by CT, see above. 4. Other findings discussed above. Modified Barium Swallow 07/09/21 09:27 IMPRESSION: 1. Early spillage with pooling in the vallecula with residue 2. Aspiration with thin liquids and penetration with nectar consistencies 3. Pudding consistency was better tolerated. Laboratory Results WBC 13.1 10^3/uL (4.0-10.0) H 07/11/21 04:12 RBC 4.70 10^6/uL (4.1-5.3) 07/11/21 04:12 Hgb 14.1 g/dL (11.7-16.6) 07/11/21 04:12 Hct 45.5 % (42.0-52.0) 07/11/21 04:12 MCV 96.8 fl (80-94) H 07/11/21 04:12 MCH 30.0 pg (28.0-34.0) 07/11/21 04:12 MCHC 31.0 g/dL (30.0-36.0) 07/11/21 04:12 RDW 12.7 % (12.1-15.1) 07/11/21 04:12 Plt Count 389 10^3/cmm (130-400) 07/11/21 04:12 MPV 11.0 fL (7.4-10.4) H 07/11/21 04:12 Neut % (Auto) 85.3 % 07/11/21 04:12 Lymph % (Auto) 8.1 % 07/11/21 04:12 Mason % (Auto) 4.5 % 07/11/21 04:12 Eos % (Auto) 0.0 % 07/11/21 04:12 Baso % (Auto) 0.2 % 07/11/21 04:12 Neut # (Auto) 11.21 10^3/uL (1.8-7.7) H 07/11/21 04:12 Lymph # (Auto) 1.1 10^3/uL (0.8-4.8) 07/11/21 04:12 Mason # (Auto) 0.6 10^3/uL (0.2-0.9) 07/11/21 04:12 Eos # (Auto) 0.0 10^3/uL (0.0-0.8) 07/11/21 04:12 Baso # (Auto) 0.0 10^3/uL (0.0-0.1) 07/11/21 04:12 Nucleated RBC % (auto) 0 % 07/11/21 04:12 Nucleated RBCs # 0.0 /100WBC 07/11/21 04:12 PT 17.40 SECONDS (12.1-14.9) H 07/08/21 04:28 INR 1.38 (0.8-1.2) H 07/08/21 04:28 APTT 34.0 SECONDS (23.9-36.7) 07/08/21 00:45 Specimen Type Arterial 07/08/21 00:46 Sample Site Radial, right 07/08/21 00:46 ABG pH 7.46 (7.35-7.45) H 07/08/21 00:46 ABG pCO2 39.3 mmHg (35-45) 07/08/21 00:46 ABG pO2 61.8 mmHg (80.0-100.0) L 07/08/21 00:46 ABG HCO3 28.2 mmol/L (22-26) H 07/08/21 00:46 ABG Base Excess 4.2 mmol/L (-2.0-2.0) H 07/08/21 00:46 Saroj Test Pos 07/08/21 00:46 Hematocrit 48.6 % (42-52) 03 00:46 O2 Delivery Device Nrb 07/08/21 00:46 O2 Liters/Min 15.0 % 07/08/21 00:46 FiO2 100.0 % 07/08/21 00:46 Database Management Specialist ID Hensa 07/08/21 00:46 Sodium 152 mmol/L (136-145) H 07/10/21 04:18 Potassium 3.6 mmol/L (3.5-5.1) 07/10/21 04:18 Chloride 118 mmol/L (98-107) H 07/10/21 04:18 Carbon Dioxide 24 mmol/L (22-29) 07/10/21 04:18 Anion Gap 13.6 (5-19) 07/10/21 04:18 BUN 57 mg/dL (8-23) H 07/10/21 04:18 Creatinine 1.0 mg/dL (0.7-1.2) 07/10/21 04:18 GFR Calculation Not Reportable 07/10/21 04:18 Glucose 180 mg/dL (65-115) H 07/10/21 04:18 Calculated Osmolality 334 mOsm/kg (285-295) H 07/10/21 04:18 Lactate 1.4 mmol/L (0.5-2.2) 07/08/21 00:45 Calcium 8.8 mg/dL (8.5-10.5) 07/10/21 04:18 Magnesium 2.8 mg/dL (1.7-2.3) H 07/10/21 04:18 Total Bilirubin 0.3 mg/dL (0.15-1.2) 07/10/21 04:18 AST 99 U/L (0-40) H 07/10/21 04:18 ALT 161 U/L (0-41) H 07/10/21 04:18 Alkaline Phosphatase 71 IU/L (40-130) 07/10/21 04:18 Troponin T Gen 5 ng/L Cancelled 07/10/21 04:18 Troponin T Baseline 51 ng/L (0-15) H 07/10/21 04:18 Troponin T 120 Minute 55.64 ng/L (0-15) H 07/10/21 06:25 Delta Troponin T 4.64 ABS# (0-10) 07/10/21 06:25 Troponin T Hi Sens 6Hr 57.65 ng/L (0-15) H 07/10/21 10:25 Troponin T Hi Sens 6Hr Delta 6.65 ng/L (0-12) 07/10/21 10:25 C-Reactive Protein 236.0 mg/L (0.0-4.9) H 07/08/21 00:45 NT-Pro-B Natriuret Pep 1263 pg/mL (0-450) H 07/08/21 00:45 Total Protein 7.0 g/dL (6.6-8.7) 07/10/21 04:18 Albumin 2.9 g/dL (3.5-5.2) L 07/10/21 04:18 Globulin 4.1 g/dL (1.3-4.6) 07/10/21 04:18 Triglycerides 69 mg/dL (0-150) 07/08/21 04:28 Cholesterol 107 mg/dL (0-200) 07/08/21 04:28 LDL Cholesterol, Calc 61 mg/dL (50-129) 07/08/21 04:28 HDL Cholesterol 32 mg/dL (60-100) L 07/08/21 04:28 LDL/HDL Ratio 1.91 RATIO (0.00-3.22) 07/08/21 04:28 Cholesterol/HDL Ratio 3.34 mg/dL (1.0-5.00) 07/08/21 04:28 Vitamin B12 586 pg/mL (232-1245) 07/08/21 04:28 Folate 10.8 ng/mL (4.5-32.2) 07/08/21 06:26 Procalcitonin 0.17 ng/mL (0-0.5) 07/08/21 00:45 TSH 1.42 uIU/mL (0.27-4.20) 07/08/21 04:28 Free T4 1.78 ng/dL (0.82-1.77) H 07/08/21 04:28 Urine Color Yellow (Yellow) 07/08/21 07:02 Urine Appearance Cloudy (CLEAR) 07/08/21 07:02 Urine pH 5 (5-7) 07/08/21 07:02 Ur Specific [place] 1.015 (1.005-1.030) 07/08/21 07:02 Urine Protein Trace (Negative) 07/08/21 07:02 Urine Glucose (UA) Norm (Normal) 07/08/21 07:02 Urine Ketones Negative (Negative) 07/08/21 07:02 Urine Blood Neg (Negative) 07/08/21 07:02 Urine Nitrate Negative (Negative) 07/08/21 07:02 Urine Bilirubin Neg (Negative) 07/08/21 07:02 Urine Urobilinogen Norm mg/dL (Negative) 07/08/21 07:02 Ur Leukocyte Esterase Negative (Negative) 07/08/21 07:02 Urine RBC None /hpf (0-2) 07/08/21 07:02 Urine WBC 0-4 /hpf (0-5) H 07/08/21 07:02 Ur Squamous Epith Cells 0-4 /hpf (0-5) H 07/08/21 07:02 Amorphous Sediment 2+ /hpf 07/08/21 07:02 Urine Bacteria 3+ /hpf (NONE) H 07/08/21 07:02 Urine Mucus 1+ /hpf 07/08/21 07:02 Ur Random Sodium 34 mmol/L 07/08/21 07:02 Ur Random Potassium 71 mmol/L 07/08/21 07:02 Ur Random Chloride < 10 mmol/L 07/08/21 07:02 Urine Creatinine 79 mg/dL (39-259) 07/08/21 07:02 Coronavirus 229E (PCR) Not detected (NOT DETECT) 07/08/21 01:30 SARS-CoV-2 (PCR) Not detected (NOT DETECT) 07/08/21 01:30 Vitals Last Vital Signs Temp 98.7 F 07/11/21 08:00 Pulse 82 07/11/21 08:06 Resp 22 H 07/11/21 08:00 BP 116/75 07/11/21 08:00 Pulse Ox 92 07/11/21 08:00 Discharge Plan Discharge Patient Disposition: Hospice - Medical Facility Condition: Stable Prescriptions: Continued docusate sodium 100 mg Capsule 100 mg PO BID 0RF aspirin 81 mg Tablet,Chewable 81 mg PO DAILY 0RF Miralax 17 gram/dose Powder 17 g PO DAILY 0RF Artificial Tears (PF) 0.1-0.3 % Dropperette 2 drp OPHTHALMIC (EYE) Q4H PRN (Reason: Dry Eyes) 0RF furosemide 40 mg Tablet 40 mg PO DAILY 0RF bicalutamide 50 mg Tablet 50 mg PO DAILY 0RF ascorbic acid (vitamin C) [Vitamin C] 1,000 mg Tablet 1 g PO BID 0RF acetaminophen [Tylenol] 325 mg Tablet 650 mg PO Q4H PRN (Reason: Fever Or Pain) 0RF ipratropium-albuterol 0.5 mg-3 mg(2.5 mg base)/3 mL Solution For Nebulization 3 ml INHALATION TID 0RF trazodone 50 mg Tablet 25 mg PO BEDTIME 0RF hydrocodone-acetaminophen 5-325 mg Tablet 1 tab PO BID PRN (Reason: Pain) 0RF sennosides-docusate sodium [Senna-S] 8.6-50 mg Tablet 1 tab-cap PO DAILY 0RF guaifenesin [Jossie-Tussin] 100 mg/5 mL Liquid 200 mg PO Q4H PRN (Reason: Cough) 0RF methenamine hippurate 1 gram Tablet 1 g PO BID 0RF famotidine 20 mg Tablet 20 mg PO BID 0RF magnesium hydroxide [Milk of Magnesia] 400 mg/5 mL Suspension 2,400 mg PO DAILY PRN (Reason: Constipation) 0RF bisacodyl 10 mg Suppository 10 mg NH DAILY PRN (Reason: Constipation) 0RF Enema Disposable 19-7 gram/118 mL Enema 118 ml [place] DAILY PRN (Reason: Constipation) 0RF hydrocodone-acetaminophen 5-325 mg Tablet 1 tab PO BID 0RF amiodarone [Pacerone] 200 mg Tablet 200 mg PO DAILY Qty: 30 0RF Eliquis 2.5 mg tablet 2.5 mg PO BID Qty: 60 0RF Discharge Orders: Discharge Order (Routine); Ordered 07/11/21 Ordered By: Boby Urbano Discharge Diet: As Directed Discharge Activity: Resume usual activity Patient Instructions: Opioid Safety Activity Restrictions/Additional Instructions: Hospice care. Pur?ed diet. Discharge Attestations Time Spent in Discharge Care*: greater than 30 min Specific Discharge Activities: educating and/or supporting family/caregiver, discussing with case manager specialist/social workers/dc planners, documenting/other paperwork and evaluating patient/reviewing data Status at Discharge: Cognitive status at discharge: moderately impaired cognition, Behavioral status at discharge: cooperative, Functional status at discharge: bed bound, Overall status at discharge: patient is back to baseline Quality Metrics Clinical Quality Measures [ No reported AMI, CVA or VTE this stay] Coding Level of Care Code Acute Chg DC note Diagnoses Hypernatremia E87.0 Arrhythmia I49.9 A-fib I48.91 Respiratory failure with hypoxia J96.01 Chronicity: acute Pneumonia J18.9 Aortic valve replaced Z95.2 Diastolic heart failure I50.30 Advanced dementia F03.90 Goals of care, counseling/discussion Z71.89
--- NOTE | 2021-07-11 13:01 | PC.NURSE ---
report phoned to yaritza at [facility]s to transport pt at this time via stretcher
== END 2021-07-11 13:03 | disposition hospice, inpatient (51) | DRG 177 ==
LOC: ER 03:07 → ER IP 07:43 → CSU 12:11
PROVIDERS: Internal Medicine; Student in an Organized Health Care Education/Training Program; Admitting Provider Internal Medicine; Emergency Provider Emergency Medicine; Visit Provider Student in an Organized Health Care Education/Training Program
DX: J69.0 Pneumonitis due to inhalation of food and vomit (principal); J96.01 Acute respiratory failure with hypoxia; J44.1 Chronic obstructive pulmonary disease with (acute) exacerbation; I13.0 Hypertensive heart and chronic kidney disease with heart failure and stage 1 through stage 4 chronic kidney disease, or unspecified chronic kidney disease; I50.30 Unspecified diastolic (congestive) heart failure; E87.1 Hypo-osmolality and hyponatremia; T82.857A Stenosis of other cardiac prosthetic devices, implants and grafts, initial encounter; I47.2 Ventricular tachycardia; N17.9 Acute kidney failure, unspecified; E87.0 Hyperosmolality and hypernatremia; F03.90 Unspecified dementia, unspecified severity, without behavioral disturbance, psychotic disturbance, mood disturbance, and anxiety; I48.91 Unspecified atrial fibrillation; N40.0 Benign prostatic hyperplasia without lower urinary tract symptoms; Z86.16 Personal history of COVID-19; Z86.73 Personal history of transient ischemic attack (TIA), and cerebral infarction without residual deficits; E78.5 Hyperlipidemia, unspecified; N18.9 Chronic kidney disease, unspecified; G47.33 Obstructive sleep apnea (adult) (pediatric); Z85.46 Personal history of malignant neoplasm of prostate; Z92.3 Personal history of irradiation; Z66 Do not resuscitate; K59.00 Constipation, unspecified; F41.9 Anxiety disorder, unspecified; G89.29 Other chronic pain; Z79.01 Long term (current) use of anticoagulants; Z79.891 Long term (current) use of opiate analgesic; Z79.82 Long term (current) use of aspirin; Y71.1 Therapeutic (nonsurgical) and rehabilitative cardiovascular devices associated with adverse incidents; E86.0 Dehydration; D75.839 Thrombocytosis, unspecified; D75.89 Other specified diseases of blood and blood-forming organs
CPT/HCPCS: 36415; 36600; 51702; 70450; 71045; 74230; 80048; 80053; 80061; 81001; 82436; 82570; 82607; 82746; 82803; 83605; 83735; 83880; 84133; 84145; 84300; 84439; 84443; 84484; 85025; 85610; 85730; 86140; 86403; 87040; 87449; 87635; 92610; 92611; 93005; 93306; 94640; 94660; 96365; 96367; 96372; 99291; J0282; J0456; J0696; J1644; J1940; J2543; J2920; J3370; J3480; J7030; J7050; J7060; J7799